=== PATIENT | male | born 1970 | race Caucasian/White ===

== ENCOUNTER 2024-10-01 07:03 | Day surgery (SDC) | payer OTHER, SELFPAY ==
[2024-10-01 07:48] VITALS: BMI 22.8
== END 2024-10-01 12:10 | disposition home or self-care (01) ==
LOC: CATH 07:03
PROVIDERS: ATTENDING PHYSICIAN Internal Medicine; FAMILY PHYSICIAN Internal Medicine; OTHER PHYSICIAN Internal Medicine Cardiovascular Disease
DX: I48.0 Paroxysmal atrial fibrillation (principal); I11.0 Hypertensive heart disease with heart failure; I50.22 Chronic systolic (congestive) heart failure; I42.8 Other cardiomyopathies; G47.33 Obstructive sleep apnea (adult) (pediatric); Z79.01 Long term (current) use of anticoagulants; Z79.84 Long term (current) use of oral hypoglycemic drugs; Z79.82 Long term (current) use of aspirin
CPT/HCPCS: 93312; 93320; 93325

== ENCOUNTER 2024-10-19 05:45 | Inpatient (IN) | payer OTHER, SELFPAY ==
[2024-10-19] VITALS (29 sets, daily range): BP systolic 126–165; BP diastolic 82–132; BMI 23.3
[2024-10-19 02:35] LABS: % Basophils 0.8 % (0-2); % Eosinophils 2.4 % (0-6); % Immature Granulocytes 0.4 % (0-0.5); % Lymphocytes 16.4 % (20.5-51.1); % Monocytes 7.8 % (1.7-9.3); % Neutrophils 72.2 % (42.2-75.2); Absolute Basophils 0.1 10^3/uL (0-0.2); Absolute Eosinophils 0.2 10^3/uL (0-0.7); Absolute Lymphocytes 1.2 10^3/uL (1.2-3.4); Absolute Monocytes 0.6 10^3/uL (0.1-0.6); Absolute Neutrophils 5.5 10^3/uL (1.4-6.5); Hematocrit 44.9 % (39.0-52.0); Hemoglobin 14.9 g/dL (13.0-18.0); Mean Corp Hgb Conc. 33.2 g/dL (33.0-37.0); Mean Corpuscular Hgb 29.7 pg (27.0-31.0); Mean Corpuscular Volume 89.4 fL (80.0-94.0); Mean Platelet Volume 10.9 fL (7.4-10.4); Nucleated Red Blood Cells % 0 % (-); Platelet Count 222 10^3/uL (130-400); Red Blood Cell Count 5.02 10^6/uL (4.70-6.10); Red Cell Dist. Width 13.9 % (11.5-14.5); White Blood Cell Count 7.6 10^3/uL (4.8-10.8)
--- NOTE | 2024-10-19 02:37 | ED.GENMED ---
History of Present Illness
General
Chief Complaint: Heart Rate Problem
Source: patient
Exam Limitations: none
Time Seen by Provider: 10/19/24 02:30
Nursing documentation reviewed up to this point in time: agreed with
History of Present Illness
History of Present Illness:
54-year-old male presents emergency department with palpitations. He has been diagnosed with atrial fibrillation with rapid ventricular response and has been on Eliquis since mid August. In mid September he had a RACIEL and they found many clots.
They put off cardioverting him until the Eliquis had more time to work. Tonight, while at work he had some chest pain and dyspnea on exertion. 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 Upon arrival he was found to be in atrial fibrillation with rapid ventricular response. Patient reports no chest pain at this time.
Past History
Past History
ED Past Medical History: HTN
ED Past Surgical History: None
Social History
Tobacco: Non-smoker
Review of Systems
Review of Systems
Allergies reviewed?: Yes
All Other Systems: ROS reviewed and negative except as documented in HPI and ROS
Constitutional: Reports no symptoms
EENT: Reports no symptoms
Respiratory: Reports no symptoms
Cardiac: Reports palpitations
ABD/GI: Reports no symptoms
: Reports no symptoms
Musculoskeletal: Reports no symptoms
Skin: Reports no symptoms
Neurological: Reports no symptoms
Endocrine: Reports no symptoms
Hematologic/Lymphatic: Reports no symptoms
Psychiatric: Reports anxiety
Phy Exam
General Physical Exam
General Presentation: well appearing and no apparent distress
General Skin: warm and dry
General Habitus: normal
General Mental: alert
General Hydration: appears well hydrated
ENT Exam
ENT Exam: EOMI, pharynx normal, neck supple and normocephalic
Eye Exam
Eye Exam: PERRL, cornea clear and conjunctiva normal
Cardiovascular Exam
Cardiovascular Exam: irregularly irregular and tachycardia
Pulmonary Exam
Pulmonary Exam: lungs clear, no respiratory distress, no rales, no crackles, no rhonchi, no stridor, no wheezing and no cough
Gastrointestinal Exam
Gastrointestinal Exam: normal bowel sounds, non tender, soft, no organomegaly, no pulsatile mass and non distended
Neurological Exam
Neurological Exam: alert, oriented x3, no motor deficits and speech normal
Musculoskeletal Exam
Musculoskeletal Exam: full ROM and no edema
Skin Exam
Skin Exam: normal color, warm/dry, no rash and no petechia
Psychiatric Exam
Psychiatric Exam: normal mood/affect
Course
Orders/Labs/Results
Orders:
Orders
10/19/24 02:11
Electrocardiogram (*1) Urgent
Reason for Study: Atrial Fibrillation
EKG- Treatment ONCE
10/19/24 02:26
Complete Blood Count/With Diff Urgent
Comprehensive Metabolic Panel Urgent
NT-proBNP Urgent
Troponin I Urgent
10/19/24 02:30
Diltiazem 125 mg/125 ml Nss [Cardizem] 125 mg in 125 ml IV PER PROTOCOL
Initial dose in mg/hr, then titrate:: 5
Titrate to keep:: Heart rate 80-100 bpm
Titrate by mg/hr:: 5 mg/hr
Frequency of titrations (minutes):: 15
Maximum dose in mg/hr:: 15
Diltiazem HCl [Cardizem] 25 mg IV NOW STA
Abnormal Lab Results
10/19/24
02:26
MPV 10.9 H fL
(7.4-10.4)
Lymphocytes % 16.4 L %
(20.5-51.1)
BUN 34 H mg/dl
(9-20)
Creatinine 1.8 H mg/dL
(0.7-1.3)
Glucose 131 H mg/dl
(70-99)
Total Bilirubin 1.4 H mg/dl
(0.2-1.3)
AST 77 H U/L
(17-59)
ALT 93 H U/L
(0-50)
Troponin I 0.071 H* ng/ml
Total Protein 5.8 L g/dl
(6.3-8.2)
10/19/24 02:26
10/19/24 02:26
Vital Signs
Initial and Last Documented VS:
Initial Vital Signs
Temp Pulse Resp BP Pulse Ox
98.5 F 121 16 162/121 99
10/19/24 02:18 10/19/24 02:18 10/19/24 02:18 10/19/24 02:18 10/19/24 02:18
Last Documented Vital Signs
Temp Pulse Resp BP Pulse Ox
98.5 F 98 18 165/132 99
10/19/24 02:18 10/19/24 02:41 10/19/24 02:33 10/19/24 02:41 10/19/24 02:33
*Critical Care Note
Total Time (30-74mins, 75-104mins- exclusive of procedures): 30
comment:
Critical care statement: A total of 30 minutes of critical care time was provided for this patient. This time is separate from time utilized to perform the aforementioned documented procedures. Aggregate critical care time includes only time
during which I was engaged in work directly related to the patient's care, as described above, whether at the bedside or elsewhere in the Emergency Department.
ED Attending Note
-
Portions of this chart may have been created with voice recognition software.� Occasional wrong word or��sound alike� substitutions may have occurred due to the inherent limitations of voice recognition software.
Discharge Plan
Departure
Patient Disposition: Admit
Date of Disposition: 10/19/24
Time of Disposition: 03:29
Admit to: Telemetry
Presentation/result/management discussed w/ accepting MD/DO: Hospitalist
Discharge Problem:
Atrial fibrillation with RVR, Chest pain, Elevated troponin
Prescriptions:
No Action
Eliquis 5 mg Tablet
5 mg PO BID Qty: 60 0RF
sacubitril-valsartan [Entresto] 24-26 mg Tablet
1 tab PO BID Qty: 60 0RF
spironolactone 25 mg Tablet
50 mg PO BID Qty: 60 0RF
Jardiance 10 mg Tablet
10 mg PO DAILY Qty: 30 0RF
metoprolol succinate 50 mg Tablet Extended Release 24 Hr
50 mg PO DAILY
hydralazine 25 mg Tablet
25 mg PO BID
aspirin [Aspir-81] 81 mg Tablet,Delayed Release (Dr/Ec)
81 mg PO DAILY
Interventions
Interventions:
*Risk Screen - Suicide Last Done: 10/19/24 02:18
*General Assessment Last Done: 10/19/24 02:18
*Neglect/Abuse Screening Last Done: 10/19/24 02:18
ED- Fall Risk Assessment Last Done: 10/19/24 02:44
*ED COVID-19 Vaccine History Last Done: 10/19/24 02:18
ED- Cardiac Assessment Last Done: 10/19/24 02:44
ED- Pulmonary Assessment Last Done: 10/19/24 02:44
Discharge Date and Time
Print Language: PORTUGUESE
[2024-10-19] MEDS: CARDIZEM 125 IV (02:41)
[2024-10-19] MEDS: CARDIZEM 25 MG IV (02:41)
[2024-10-19 03:00] LABS: ALT (SGPT) 93 U/L (0-50); AST (SGOT) 77 U/L (17-59); Albumin 3.7 g/dl (3.5-5.0); Alkaline Phosphatase 98 U/L (38-126); Blood Urea Nitrogen 34 mg/dl (9-20); Calcium 9.4 mg/dl (8.4-10.2); Carbon Dioxide 27 mmol/L (22-30); Chloride 103 mmol/L (98-107); Glucose 131 mg/dl (70-99); Potassium 4.4 mmol/L (3.5-5.1); Sodium 138 mmol/L (135-145); Total Bilirubin 1.4 mg/dl (0.2-1.3); Total Protein 5.8 g/dl (6.3-8.2); eGFR 43.63
[2024-10-19 03:22] LABS: NT-proBNP 8460 pg/ml; Troponin I 0.071 ng/ml
[2024-10-19] MEDS: NSS 1000 IV (03:30)
--- NOTE | 2024-10-19 03:30 | EDRN ---
patient had a few episodes of being bradycardic as low as 40, patient reports that he does normally run low, spoke with and informed him of the patients rate and what patient reported, patient isn't symptomatic, Dr. Simpson ordered to
give 1,000ml/normal saline and to decrease cardizem to 2.5mg/hr.
--- NOTE | 2024-10-19 05:17 | HPS.HSE ---
Family Physician
-
Family Physician: Reyes Shabazz MD
Chief Complaint
-
Palpitations and shortness of breath
History of Present Illness
This is a 54-year-old who has past medical history that is significant for congestive heart failure with last EF of around 35%, atrial fibrillation on anticoagulation, status post prior DCCV and now back in atrial fibrillation, hypertension, prior
NSTEMI with clean coronaries in spring 2022 who presents to the emergency department with approximately 1 week of worsening cardiac symptoms including orthopnea, palpitations and intermittent chest pain.
Patient reported that since he is attempted cardioversion that was aborted due to presence of layering clots in his heart he has been having worsening cardiac symptoms which included some dyspnea on exertion but mostly achy orthopnea. He feels like
over the last few days he has been having to prop himself up or sleep on his recliner. He reports intermittent swelling of his lower extremities. He reported some episode of chest pain that he states is a dull ache that lasted few minutes and then
resolves. He denies any acute weight gain stating that his weight has stayed around 150 pounds. He reports compliance with medications. Denies any cough fevers or chills. He states that his heart rate has been persistently in the 120s over the
last few days. Recommendation of the symptoms are what brought him to the hospital feeling that his cardiac condition has deteriorated.
On arrival in the emergency department he was afebrile, blood pressure was 136/82 with a ECG showing atrial fibrillation with a rate of 120s. He was satting 97% on room air. BNP was elevated at 8004 and 60, troponin was also elevated at 0.07. CBC
is unremarkable. Electrolytes were all normal, creatinine is slightly elevated to 1.8 from 1.22 years ago.
Medical History
Past Medical History
Past Medical History: Reports Arrhythmia (Atrial fibrillation persistent, failure of DCCV, pending repeat DCCV), CHF (Nonischemic cardiomyopathy secondary to bundle hypertension and uncontrolled atrial fibrillation, EF 30 to 35%), HTN and Other
(Nephrolithiasis)
Past Surgical History: Reports None
Social History
Tobacco: Non-smoker
Alcohol: None
Drug: None
Family History
Family History: Not pertinent
Allergies / Home Medications
Allergies reflects when Allergies were last updated in [facility].
Home Medications with original date entered in [facility]
Allergy/Medication List:
Allergies
Allergy/AdvReac Type Severity Reaction Status Date / Time
No Known Allergies Allergy Verified 03/02/23 01:02
Home Medications
apixaban 5 mg tablet (Eliquis) 5 mg PO BID #60 tabs 03/05/23
empagliflozin 10 mg tablet (Jardiance) 10 mg PO DAILY #30 tabs 03/05/23
sacubitril 24 mg-valsartan 26 mg tablet (Entresto) 1 tab PO BID #60 tabs 03/05/23
spironolactone 25 mg tablet 50 mg (2 x 25 mg) PO BID #60 tabs 03/05/23
aspirin 81 mg tablet,delayed release 81 mg PO DAILY 10/01/24
hydralazine 25 mg tablet 25 mg PO BID 10/01/24
metoprolol succinate 50 mg tablet,extended release 24 hr 50 mg PO DAILY 10/01/24
Review of Systems
-
History Source: Patient
Constitutional: Reports No Symptoms
EENT: Reports No Symptoms
Respiratory: Reports Trouble Breathing
Cardiac: Reports Chest Pain and Palpitations
Abdomen/GI: Reports No Symptoms
: Reports No Symptoms
Musculoskeletal: Reports No Symptoms
Skin: Reports No Symptoms
Neurological: Reports No Symptoms
Endocrine: Reports No Symptoms
Hematologic/Lymphatic: Reports No Symptoms
Psych: Reports No Symptoms
Physical Exam
Vital Signs
Vital Signs
Temp Pulse Resp BP Pulse Ox
98.5 F 68 17 126/82 97
10/19/24 02:18 10/19/24 04:15 10/19/24 04:15 10/19/24 04:00 10/19/24 04:15
Physical Exam
General: Well Developed, Well Nourished and No Apparent Distress
HEENT: NormoCephalic, Anicteric, Moist mucous membranes, Atraumatic and PERRLA
Respiratory: Clear
Cardiac: S1/S2 and Irregular Rhythm; No Peripheral Edema
Breast: Deferred by me
GI: Soft, Non Tender, Non Distended and Normal Bowel Sounds
Rectal: Deferred by Provider
Genito-urinary: Deferred by me
Musculoskeletal: No Clubbing, No Cyanosis and No Edema
Skin: Warm
Neuro: AO x 3 and Nonfocal/grossly intact
Hematologic/Lymphatic: No Lymphadenopathy
Psych: Calm
Laboratory Results
-
10/19/24 02:26
10/19/24 02:26
Laboratory Results
Total Bilirubin 1.4 mg/dl (0.2-1.3) H 10/19/24 02:26
AST 77 U/L (17-59) H 10/19/24 02:26
ALT 93 U/L (0-50) H 10/19/24 02:26
Alkaline Phosphatase 98 U/L (38-126) 10/19/24 02:26
Troponin I 0.071 ng/ml H* 10/19/24 02:26
Data Reviewed
-
Medical Tests (Nuc Med, Echo, EKG etc): Image Personally Visualized and interpreted
Lab Data: Labs Reviewed by me
Old Records: Reviewed
Impression/Plan
-
IMPRESSION:
54-year-old with history of nonischemic cardiomyopathy, hypertension, uncontrolled atrial fibrillation presenting to the emergency department with palpitations, rapid atrial fibrillation, orthopnea, dyspnea on exertion. Found to have intermittent
chest pain with troponin of 0.07. Overall exam is negative for total body volume overload. He is not requiring oxygen. However his symptoms are consistent with CHF exacerbation, BNP is elevated at 8460. He was in uncontrolled atrial fibrillation.
PLAN:
1. Uncontrolled AFIB - Suspect given reduced EF patient uncontrolled afib highly symptomatic. Unlikely he has obstructive ACS. Clear coronories on [facility] 2022.
- admit to ivu
- continue dilitazem for now
- trend troponins
- continue metoprolol succinate
- continue ac with apixaban for now
- npo at breakfast
- cardiology consult.
2. CHF - Appears to have symptomatic disease but mostly feels orthopnea. No edema on exam for me but patient reports intermittent edema at home. HD stable. No hypoxia
- check chest xray
- no lasix for now
- recent echo w/ EF 30-35% will hold off on repeat TTE
- continue entrsto and empagliflozin
- spironolactone
3. Elevated troponin - suspect 2/2 rate related demand and NICM
- trend as above
- continue eliquis for now, pt inr in am
DVT PPX - on eliquis
Code status - Full Code
--- NOTE | 2024-10-19 05:17 | EDRN ---
Hospitalist at bedside seeing patient, patient also placed in a recliner chair for comfort at this time, lokesh villalpando in reach, will continue to monitor
--- NOTE | 2024-10-19 06:55 | EDRN ---
this RN received the pt from previous movie operator RN, the pt is laying in recliner, per the pt he does not like to sleep in stretcher and does not like to lie flat due to being short of breath, this RN offered to sit the head of the stretcher up so
the pt did not have to lay flat and the pt stated that he preferred to lay in the recliner, VS WNL, cardizem gtt has been off per previous nurse, HR in the 60-70's in Afib, RA Sp02 98%, no c/o chest pain, no c/o SOB, this RN completed the pts
medication reconciliation and provider notified, awaiting for a bed in IVU, will continue to monitor the pt closely
--- NOTE | 2024-10-19 07:17 | EDRN ---
Troponin drawn and sent
[2024-10-19 07:55] LABS: Troponin I 0.065 ng/ml
--- NOTE | 2024-10-19 07:55 | EDRN ---
troponin trending down
--- NOTE | 2024-10-19 07:55 | EDRN ---
the pt is off of cardizem gtt since 415, this RN reviewed admission orders and saw that there was an order to continue cardizem infusion per attending however the pts HR is 60-70's, this RN reached out to Dr. Wagner who is the current
attending to confirm that it is ok to keep cardizem gtt off
--- NOTE | 2024-10-19 08:01 | EDRN ---
per Dr. Wagner the [facility] gtt is to stay off for now due to the pts HR being in the 60-70's
--- NOTE | 2024-10-19 08:18 | EDRN ---
this RN attempted to call verbal report to the receiving IVU nurse, the nurse was not available, this RN tubed up paper report per the charge nurse
--- NOTE | 2024-10-19 08:24 | EDRN ---
the receiving IVU nurse Sarah RN called this RN and this RN gave verbal report
[2024-10-19] MEDS: ELIQUIS 5 MG PO ×2 (09:46→19:34)
[2024-10-19] MEDS: ENTRESTO 49 MG/51 MG 1 TAB PO (09:46)
[2024-10-19] MEDS: TOPROL XL 50 MG PO (09:46)
[2024-10-19 10:45] LABS: Troponin I 0.065 ng/ml
[2024-10-19] MEDS: ALDACTONE 25 MG PO (11:09)
[2024-10-19] MEDS: FARXIGA 10 MG PO (11:10)
--- NOTE | 2024-10-19 11:23 | PTCARENOTE ---
10/19/24 0900 Received patient from ER via stretcher. Pt ambulated to bed without any issues. Pt oriented to room,call villalpando , and surroundings. Pt placed on awake overnight monitor- Controlled A Fib, afebrile, on room air at 96%. SBP 140-150/104-110.
Attending and cardiology aware. Pt with no complaints. Pt NPO until seen by cardiology.
--- NOTE | 2024-10-19 13:22 | CON.CAR ---
Consultation
Consultation Request
Date/Time Consultation Requested: 10/19/2024 at 8:57 AM
Date/Time Consultation Performed: 10/19/2024 at 1:22 PM
Requesting Provider: Korina Clemens MD
Performing Provider: Leonel Stevens MD
Reason for Consultation: afib, CHF
Medical History
-
Chief Complaint: fatigue, SOB
History of Present Illness:
Jose Angel Harmon is a 54-year-old male (patient of Dr. Will) with nonischemic cardiomyopathy (EF 30%), paroxysmal atrial fibrillation (s/p ablation 2021), hypertension who presents with fatigue and shortness of breath. He had an episode of atrial
fibrillation in 2022 but then had been in sinus rhythm for 2 years. In August of this year, he noted that he was in recurrent atrial fibrillation. He was told to restart Eliquis at that time and was planned for RACIEL/cardioversion in September. On
10/01/2024, he presented to for planned RACIEL/cardioversion but was found to have a left atrial appendage thrombus so cardioversion was not performed. Since then he has been feeling sluggish and fatigued. For the past 1 week he has noted orthopnea
and leg swelling. Yesterday he noticed that his heart rates were elevated so he decided to present to the ED. In the ER he was noted to be in A-fib with RVR and was started on a diltiazem drip which has since been stopped. Heart rates are now
controlled in the 50s�60s.
Past Medical History
Past Medical History: Other (As above)
Social History
Tobacco: Non-Smoker
Family History
Family History: Reviewed & Not Pertinent
Allergies / Home Medications
Allergy/AdvReac Type Severity Reaction Status Date / Time
No Known Allergies Allergy Verified 03/02/23 01:02
�Medication �Instructions �Recorded �Confirmed �Type
apixaban 5 mg tablet (Eliquis) 5 mg PO BID #60 tabs 03/05/23 10/19/24 Rx
empagliflozin 10 mg tablet 10 mg PO DAILY #30 tabs 03/05/23 10/19/24 Rx
(Jardiance)
sacubitril 24 mg-valsartan 26 mg 1 tab PO BID #60 tabs 03/05/23 10/19/24 Rx
tablet (Entresto)
spironolactone 25 mg tablet 50 mg (2 x 25 mg) PO BID #60 tabs 03/05/23 10/19/24 Rx
aspirin 81 mg tablet,delayed 81 mg PO DAILY 10/01/24 10/19/24 History
release
metoprolol succinate 50 mg 50 mg PO DAILY 10/01/24 10/19/24 History
tablet,extended release 24 hr
Review of Systems
-
All other systems: Negative unless noted
Physical Exam
Vital Signs
Temp Pulse Resp BP Pulse Ox
97.8 F 71 20 151/98 99
10/19/24 11:18 10/19/24 11:30 10/19/24 11:18 10/19/24 11:21 10/19/24 11:19
Lab Results
10/19/24 02:26
10/19/24 02:26
Troponin I 0.065 ng/ml H* 10/19/24 10:12
Stj-O-Xymboxyndlt Pept 8460 pg/ml 10/19/24 02:26
Physical Exam
General: Well Developed and Well Nourished
HEENT: Normocephalic and Anicteric
Respiratory: Clear and Non Labored Respirations
Cardiac: Irregular Rhythm; Negative Murmur or Peripheral Edema
Neuro: AO x 3
Impression / Plan
-
Jose Angel Harmon is a 54-year-old male (patient of Dr. Will) with nonischemic cardiomyopathy (EF 30%), paroxysmal atrial fibrillation (s/p ablation 2021), hypertension who presents with fatigue and shortness of breath, found to have A-fib with RVR
and mild CHF exacerbation.
Paroxysmal atrial fibrillation
-He was in RVR on presentation, but rates are now controlled. S/p diltiazem drip.
-Unfortunately he had a TADEO thrombus on RACIEL on 10/01/2024, so cardioversion is not an option.
-We will plan to rate control with metoprolol succinate 50 mg daily and uptitrate as needed for goal HR <110
-No further diltiazem given his cardiomyopathy with severely reduced ejection fraction
-Continue apixaban 5 mg twice daily
-We will see if he feels better with rate control and some diuresis. If not can reassess for thrombus with RACIEL on Sunday and cardiovert if it has resolved.
Nonischemic cardiomyopathy
-Elevated proBNP on admission with mild lower extremity edema
-RACIEL 10/01/2024: LVEF 30-35%, global HK
-Continue home GDMT: Metoprolol succinate 50 mg daily, SGLT2 inhibitor, medium dose Entresto, spironolactone 25 mg daily
-Diuresis with 40 mg IV Lasix daily
Troponin elevation due to nonischemic myocardial injury
-Peaked at 0.071 and downtrended. No chest pain, no ischemic ECG changes.
-Suspect due to A-fib with RVR and CHF exacerbation
-Okay to stop trending
MAGO on CKD
-Unknown baseline. Last documented was 1.2 in February 2023
-Trend with diuresis as above
Data Reviewed
-
EKG: Tracing Personally Visualized and interpreted, Discussed with Physician and Discussed with Patient
Medical Tests (Nuc Med, Echo etc): Report Reviewed by me, Discussed with Physician and Discussed with Patient
Labs: Labs Reviewed by me, Discussed with Physician and Discussed with Patient
Old Records: Reviewed
[2024-10-19] MEDS: LASIX 40 MG IV (14:59)
--- NOTE | 2024-10-19 16:58 | W.PN.HOSP.TC ---
Today's Communication/Plan
-
Assessment / Plan
Assessment / Plan
Gen-AAOx3, NAD
HEENT-NC, AT, anicteric, clear oral mm
Neck-supple
CV-reg, no M, +S1/S2
Lungs-clear B/L
Abd-soft, NT, ND
Musculoskeletal-no edema, no deformity
Skin-warm and dry
Neuro-grossly non-focal
Psych-calm, cooperative
Ms. Harmon is a 54-year-old male with a longstanding history of HFrEF (around 35%, nonischemic) and A-fib (status post DCCV, now back in A-fib) who presented with progressively worsening palpitations and orthopnea over the past week prior to
arrival. He recently underwent RACIEL with planned cardioversion in 10/01/2024, however cardioversion was aborted due to finding of thrombus in left atrial appendage. He has been adherent with his Eliquis. In the ED the time of this presentation he
was normotensive but tachycardic with a heart rate in the 120s. He had an elevated BNP of around 8000 and a mildly elevated troponin. He was started on diltiazem drip and admitted for further evaluation and management of A-fib with RVR.
A-fib with RVR:
-Diltiazem drip has been discontinued
-Continue rate control with metoprolol succinate 50 mg daily, uptitrate as needed
-No further diltiazem considering HFrEF
-Continue anticoagulation with Eliquis
-Cardiology following, planning reassessment of TADEO thrombus with RACIEL on Sunday and cardioversion if resolved
-Suspected bone elevation due to uncontrolled heart rate, do not suspect ACS
Abnormal LFTs:
-Mixed hepatocellular cholestatic pattern, mild
-Likely due to decreased perfusion in the setting of rapid heart rate
-Repeat LFTs with a.m. labs, if persistently abnormal can pursue dedicated liver imaging
Chronic HFrEF:
-Currently compensated
-Continue beta-blockade with metoprolol succinate 50 mg p.o. daily
-Afterload reduction with Entresto
-Continue empagliflozin and spironolactone
Abnormal renal function:
-Creatinine 1.8 on initial labs, unclear recent baseline
-Continue to monitor and renally dose all medications
CODE STATUS: Full code
Anticipated Discharge: > 48 hours
Subjective/Interval History
-
Date of Service: October 19, 2024
Patient was seen and examined at bedside's morning. He was able to be titrated off of his diltiazem drip. Currently feels comfortable with controlled heart rate.
Objective Data
-
Vital Signs:
Vital Signs
Temp Pulse Resp BP Pulse Ox
98 F 73 20 143/102 97
10/19/24 14:31 10/19/24 16:45 10/19/24 14:31 10/19/24 14:59 10/19/24 14:31
I&O
10/18/24 10/19/24 10/20/24
06:59 06:59 06:59
Intake Total 240 / 240
Output Total 500 / 500 450 / 450
Balance -500 / -500 -210 / -210
Review of Systems
-
History Source: Patient
All other systems: Reviewed and negative
Physical Exam
-
General: No Apparent Distress
[2024-10-19] MEDS: ENTRESTO 97 MG/103 MG 1 TAB PO (19:34)
--- NOTE | 2024-10-19 22:41 | PTCARENOTE ---
pt received at change of shift, pt seen and assessed in room. AOx3, tele reading afib in the 80s. no complaints of pain at this time, feeling SOB and GRAF. satting 99% RA. continuing to monitor BP, DBP elevated in the 110s. this RN discussed POC, pt
verbalizes understanding. call villalpando within reach. continuing to monitor at this time.
[2024-10-20] VITALS (13 sets, daily range): BP systolic 133–164; BP diastolic 100–135; BMI 23.2
[2024-10-20 03:10] LABS: Hematocrit 43.6 % (39.0-52.0); Hemoglobin 14.2 g/dL (13.0-18.0); Mean Corp Hgb Conc. 32.6 g/dL (33.0-37.0); Mean Corpuscular Hgb 29.4 pg (27.0-31.0); Mean Corpuscular Volume 90.3 fL (80.0-94.0); Mean Platelet Volume 11.5 fL (7.4-10.4); Platelet Count 207 10^3/uL (130-400); Red Blood Cell Count 4.83 10^6/uL (4.70-6.10); Red Cell Dist. Width 13.7 % (11.5-14.5)
[2024-10-20 03:35] LABS: ALT (SGPT) 63 U/L (0-50); AST (SGOT) 34 U/L (17-59); Alkaline Phosphatase 74 U/L (38-126); Blood Urea Nitrogen 32 mg/dl (9-20); Calcium 8.4 mg/dl (8.4-10.2); Carbon Dioxide 23 mmol/L (22-30); Chloride 105 mmol/L (98-107); Direct Bilirubin 0.2 mg/dl (0.0-0.4); Estimated Creatinine Clearance 61 ml/min; Glucose 90 mg/dl (70-99); Potassium 3.9 mmol/L (3.5-5.1); Sodium 135 mmol/L (135-145); Total Bilirubin 1.1 mg/dl (0.2-1.3); Total Protein 5.2 g/dl (6.3-8.2); eGFR > 60.00
[2024-10-20] MEDS: ELIQUIS 5 MG PO ×2 (09:01→19:36)
[2024-10-20] MEDS: FARXIGA 10 MG PO (09:02)
[2024-10-20] MEDS: TOPROL XL 50 MG PO (09:02)
[2024-10-20] MEDS: ENTRESTO 97 MG/103 MG 1 TAB PO ×2 (09:02→19:36)
[2024-10-20] MEDS: ALDACTONE 25 MG PO (09:02)
[2024-10-20] MEDS: LASIX 40 MG IV (09:02)
--- NOTE | 2024-10-20 10:03 | W.PN.CD ---
Today's Communication / Plan
-
- NPO after midnight for RACIEL/DCCV in AM
- TTE today
- Continue Metoprolol and Eliquis.
Impression / Plan
-
Jose Angel Harmon is a 54-year-old male (patient of Dr. Will) with nonischemic cardiomyopathy (EF 30%), paroxysmal atrial fibrillation (s/p ablation 2021), hypertension who presents with fatigue and shortness of breath, found to have A-fib with RVR
and mild CHF exacerbation.
Paroxysmal atrial fibrillation
-h/o persistent AF s/p AF ablation 07/2022. Ablation included PVI and PWI. Severely dilated LA 9 cm at the time of ablation.
-Recurrence of AF in Aug 2022. He was off the anticoagulation and Eliquis restarted and presented for RACIEL/DCCV
-Unfortunately he had a TADEO thrombus on RACIEL on 10/01/2024, -only couple of weeks of Eliquis by then.
-Presented in RVR , but rates are now controlled. S/p diltiazem drip.
-Plan for RACIEL in AM. If no clot then DCCV.
-Will see EP as outpatient for repeat ablation eval
-We will plan to rate control with metoprolol succinate 50 mg daily and uptitrate as needed for goal HR <110
-No further diltiazem given his cardiomyopathy with severely reduced ejection fraction
-Continue apixaban 5 mg twice daily
-We will see if he feels better with rate control and some diuresis. If not can reassess for thrombus with RACIEL on Sunday and cardiovert if it has resolved.
Nonischemic cardiomyopathy
-Elevated proBNP on admission with mild lower extremity edema
-RACIEL 10/01/2024: LVEF 30%, global HK (was 55% in sinus rhythm in 2022)
-TTE today.
-Continue home GDMT: Metoprolol succinate 50 mg daily, SGLT2 inhibitor, medium dose Entresto, spironolactone 25 mg daily
-Diuresis with 40 mg IV Lasix daily
Troponin elevation due to nonischemic myocardial injury
-Peaked at 0.071 and downtrended. No chest pain, no ischemic ECG changes.
-Suspect due to A-fib with RVR and CHF exacerbation
-Okay to stop trending
MAGO on CKD
-due to AF - Cr is better with rate controlled AF - from 1.8 to 1.3.
-Last documented was 1.2 in February 2023
-Trend with diuresis as above
Physical Exam
Vital Signs/Labs
Vital Signs
Temp Pulse Resp BP Pulse Ox
97.4 F 101 18 154/107 99
10/20/24 06:55 10/20/24 09:15 10/20/24 06:55 10/20/24 09:02 10/20/24 06:55
10/19/24 10/20/24 10/21/24
06:59 06:59 06:59
Actual Weight 74 kg 69.3 kg
10/20/24 02:11
10/20/24 02:11
10/19/24
02:26
Yxd-[id number]-Ndnthjmvvys Pept 8460
LAB Results
10/19/24 10/19/24 10/19/24
02:26 07:17 10:12
Troponin I 0.071 H* 0.065 H* 0.065 H*
Physical Exam
Constitutional: No acute distress and Comfortable
EENT: Anicteric and Moist mucous membranes
Cardiovascular: Rhythm/rate is irregular, JVD present and Systolic murmur present
Respiratory: Respiratory effort normal, Wheeze Absent and Crackles Absent
GI: Soft, Distention absent, Non tender and Normal bowel sounds
Neuro/Psych: Alert, Oriented, AO x 3 and Motor deficits absent
Other: Cath Site
Data Reviewed
-
Date of Service: October 20, 2024
Medical Decision Making: Reviewed Test Results, Test Interpretation and Review of Case with other Provider
Labs: Labs Reviewed by me
Old Records: Reviewed
--- NOTE | 2024-10-20 10:17 | CM ---
Reviewed chart. Met with Mr. Harmon to review discharge plans. He states prior to admission he resides alone in a second floor condo with a full flight of steps to get to the condo. He states prior to admission he was independent with ambulation
and adls. He states he does not have any DME in the home. He states he has a prescription plan and uses [facility]. Medical work-up in progress. The discharge plan is to return home when medically stable.
--- NOTE | 2024-10-20 10:42 | PTCARENOTE ---
Rec'd pt at handoff. AOX3 and pleasant. Tele- Afib. Assessment completed as documented. Plan of care reviewed w/ pt. Verbalizes understanding. Pt reports breathing feels slightly better today. Call villalpando is w/in reach.
--- NOTE | 2024-10-20 17:46 | W.PN.HOSP.TC ---
Today's Communication/Plan
-
maintain on diuretics
for CV/RACIEL tomorrow
Assessment / Plan
Assessment / Plan
Ms. Harmon is a 54-year-old male with a longstanding history of HFrEF (around 35%, nonischemic) and A-fib (status post DCCV, now back in A-fib) who presented with progressively worsening palpitations and orthopnea over the past week prior to
arrival. He recently underwent RACIEL with planned cardioversion in 10/01/2024, however cardioversion was aborted due to finding of thrombus in left atrial appendage. He has been adherent with his Eliquis. In the ED the time of this presentation he
was normotensive but tachycardic with a heart rate in the 120s. He had an elevated BNP of around 8000 and a mildly elevated troponin. He was started on diltiazem drip and admitted for further evaluation and management of A-fib with RVR.
A-fib with RVR:
-Diltiazem drip has been discontinued
-Continue rate control with metoprolol succinate 50 mg daily, uptitrate as needed
-Continue anticoagulation with Eliquis
-Cardiology following, planning reassessment of TADEO thrombus with RACIEL on Sunday and cardioversion if resolved
-Suspected bone elevation due to uncontrolled heart rate, do not suspect ACS
Acute transaminitis - improved
-Mixed hepatocellular cholestatic pattern, mild
-Likely due to decreased perfusion in the setting of rapid heart rate
Acute on Chronic HFrEF:
-Currently compensated
-Continue beta-blockade with metoprolol succinate 50 mg p.o. daily
-Afterload reduction with Entresto
-Continue empagliflozin and spironolactone
-Maintain on IV lasix 40mg/d, f/u weight/cr
MAGO
-cr normalized to 1.2, close to baseline
CODE STATUS: Full code
Anticipated Discharge: 24 - 48 hours
Subjective/Interval History
-
Date of Service: October 20, 2024
Resting comfortably in bed
Dyspnea is better
Not on oxygen
Orthopnea persists
Objective Data
-
Vital Signs:
Vital Signs
Temp Pulse Resp BP Pulse Ox
98.3 F 113 18 133/109 98
10/20/24 15:48 10/20/24 16:00 10/20/24 15:48 10/20/24 15:20 10/20/24 15:48
I&O
10/19/24 10/20/24 10/21/24
06:59 06:59 06:59
Intake Total 558 / 558 400 / 400
Output Total 500 / 500 2450 / 2450 1850 / 1850
Balance -500 / -500 -1892 / -1892 -1450 / -1450
Review of Systems
-
Respiratory: Reports No Symptoms
Cardiac: Reports No Symptoms
Abdomen/GI: Reports No Symptoms
Physical Exam
-
General: No Apparent Distress and Comfortable
HEENT: Negative Oxygen
Respiratory: Clear to Auscultation
Cardiac: S1/S2 and Irregular Rhythm; Negative Murmur or Rub
GI: Soft, Nontender and Nondistended
Musculoskeletal: No Edema
Neuro: Awake, Alert, Oriented, No Motor Deficits and Nonfocal/Grossly Intact
Psych: Calm
--- NOTE | 2024-10-20 20:10 | PTCARENOTE ---
pt received at change of shift. pt seen and assessed in room. OOB to chair, chatting comfortably with friend at bedside. no signs of SOB with talking. AOx3, tele reading AFib 120s, DBP still elevated in the 120s. no complaints of pain at this time,
this RN discussed POC for patient, regarding NPO after midnight for planned RACIEL 3/4. pt verbalizes understanding. call villalpando within reach. continuing to monitor at this time.
[2024-10-20] MEDS: MELATONIN 5 MG PO (22:39)
--- NOTE | 2024-10-20 23:17 | PTCARENOTE ---
BP consistently 150s-160s/110s-130s. pt complaining of intermittent SOB/GRAF, satting 99% RA. no dizziness, headache, or blurry vision. tele continuing to read Afib 80s-140s. manual BP taken 164/100. reached out to house PATIENT SERVICES TECHNICIAN [employer]. okay to continue
to monitor at this time.
[2024-10-21] VITALS (18 sets, daily range): BP systolic 140–158; BP diastolic 96–119; BMI 22.7
[2024-10-21 03:42] LABS: Hematocrit 44.3 % (39.0-52.0); Hemoglobin 14.8 g/dL (13.0-18.0); Mean Corp Hgb Conc. 33.4 g/dL (33.0-37.0); Mean Corpuscular Hgb 29.8 pg (27.0-31.0); Mean Corpuscular Volume 89.1 fL (80.0-94.0); Mean Platelet Volume 10.7 fL (7.4-10.4); Platelet Count 209 10^3/uL (130-400); Red Blood Cell Count 4.97 10^6/uL (4.70-6.10); Red Cell Dist. Width 13.8 % (11.5-14.5); White Blood Cell Count 6.5 10^3/uL (4.8-10.8)
[2024-10-21 04:03] LABS: Blood Urea Nitrogen 32 mg/dl (9-20); Calcium 8.6 mg/dl (8.4-10.2); Carbon Dioxide 27 mmol/L (22-30); Chloride 103 mmol/L (98-107); Estimated Creatinine Clearance 79 ml/min; Glucose 87 mg/dl (70-99); Potassium 3.5 mmol/L (3.5-5.1); Sodium 136 mmol/L (135-145); eGFR > 60.00
[2024-10-21] MEDS: TOPROL XL 50 MG PO (07:45)
[2024-10-21] MEDS: LASIX 40 MG IV (07:45)
[2024-10-21] MEDS: ENTRESTO 97 MG/103 MG 1 TAB PO ×2 (07:45→19:34)
[2024-10-21] MEDS: FARXIGA 10 MG PO (07:45)
[2024-10-21] MEDS: ALDACTONE 25 MG PO (07:45)
[2024-10-21] MEDS: ELIQUIS 5 MG PO ×2 (07:45→19:34)
--- NOTE | 2024-10-21 10:32 | CM ---
Reviewed chart. Met with Mr. Harmon to review discharge plans. He states he is waiting for his procedure today. Prior to admission he resides alone in a second floor walk-up condo. He has a full flight of steps to get into his condo. Prior to
admission he was independent with ambulation and adls. He does not have any DME in the home. He has a prescription plan and uses [facility]. Medical work-up in progress. The discharge plan is to return home when medically stable.
--- NOTE | 2024-10-21 12:00 | W.PN.UPDATE ---
Update Note
Progress Note Update
Patient underwent successful RACIEL cardioversion 11/11
Continue anticoagulation with Eliquis
--- NOTE | 2024-10-21 12:51 | PN.CDI ---
CDI
- -
CDI:
Physician Documentation Request
Admit Date: 10/19/24 05:45
Dear Doctor Dillon,
Clinical Indicators:
Patient admitted with A Fib with RVR.
PMH includes HTN
Blood pressure trend:
10/19/24
02:18 10/19/24
08:00 10/19/24
10:35
Blood pressure 162/121 153/112 152/111
10/19/24
19:31 10/19/24
22:09 10/20/24
06:56
Blood pressure 140/114 141/110 143/111
Please clarify which, if any of the following, is a more accurate diagnosis reflecting the type and acuity of the documented hypertension:
Essential primary hypertension
Hypertensive Urgency - B/P is severely elevated (systolic > or = to 180 or diastolic > or = to 110) but there is no associated organ damage. Symptoms may include: headache, shortness of breath, nosebleeds, severe anxiety. Treatment usually consists
of addition to or adjusting of oral medications and does not generally necessitate hospitalization.
Other (please specify)
Use of terms such as suspected, likely, concern for, or probable (associated with a specific diagnosis that is being evaluated, monitored, or treated as if it exists) are acceptable and can be coded in the inpatient setting, when documented at the
time of discharge.
Thank you,
Anne Marie Lovett RN BSN
CDI Specialist
available via tiger text
Please use your independent medical judgment in providing your response.
--- NOTE | 2024-10-21 13:46 | W.PN.HOSP.TC ---
Today's Communication/Plan
-
monitor on tele
diuretics per cards
Assessment / Plan
Assessment / Plan
RACIEL 3/4
Global hypokinesis with moderate to severely reduced left ventricular function
estimated ejection fraction 30 to 35%.
Mild aortic regurgitation
Mild mitral regurgitation
No evidence of thrombus in the left atrial appendage
Dilated ascending aorta 4.0 cm

A-fib with RVR:
-Diltiazem drip has been discontinued
-Continue rate control with metoprolol succinate 50 mg daily, uptitrate as needed
-Continue anticoagulation with Eliquis
-converted in NSR post CV
Acute transaminitis - improved
-Mixed hepatocellular cholestatic pattern, mild
-Likely due to decreased perfusion in the setting of rapid heart rate
Acute on Chronic HFrEF:
-Currently compensated
-Continue beta-blockade with metoprolol succinate 50 mg p.o. daily
-Afterload reduction with Entresto
-Continue empagliflozin and spironolactone
-Maintain on IV lasix 40mg/d, f/u weight/cr
MAGO
-cr normalized to 1.2, close to baseline
CODE STATUS: Full code
Anticipated Discharge: 24 - 48 hours
Subjective/Interval History
-
Date of Service: October 21, 2024
resting comfortably in bed
not hypoxic
orthopnea better
dyspnea better
Objective Data
-
Labs:
Laboratory Results
10/21/24
03:27
WBC 6.5
Hgb 14.8
Hct 44.3
Plt Count 209
Sodium 136
Potassium 3.5
Chloride 103
Carbon Dioxide 27
BUN 32 H
Creatinine 1.0
Glucose 87
Calcium 8.6
Vital Signs:
Vital Signs
Temp Pulse Resp BP Pulse Ox
97.6 F 117 20 158/118 97
10/21/24 12:33 10/21/24 11:00 10/21/24 12:33 10/21/24 07:34 10/21/24 12:33
I&O
10/20/24 10/21/24 10/22/24
06:59 06:59 06:59
Intake Total 558 / 558 600 / 600
Output Total 2450 / 2450 2875 / 2875 2600 / 2600
Balance -1892 / -1892 -2275 / -2275 -2600 / -2600
Review of Systems
-
Respiratory: Reports No Symptoms
Cardiac: Reports No Symptoms
Abdomen/GI: Reports No Symptoms
Physical Exam
-
General: No Apparent Distress and Comfortable
HEENT: Negative Oxygen
Respiratory: Clear to Auscultation
Cardiac: Regular Rhythm and S1/S2; Negative Murmur or Rub
GI: Soft, Nontender and Nondistended
Musculoskeletal: No Edema
Neuro: Awake, Alert, Oriented, No Motor Deficits and Nonfocal/Grossly Intact
Psych: Calm
--- NOTE | 2024-10-21 15:12 | PTCARENOTE ---
Rec'd pt post CV. Tele reads SB w/ 1st deg. Pt has no complaints at this time. Plan of care reviewed w/ pt. Verbalizes understanding. Call villalpando is w/in reach.
[2024-10-21] MEDS: APRESOLINE 10 MG PO ×2 (16:14→22:20)
--- NOTE | 2024-10-21 20:35 | PTCARENOTE ---
pt received at change of shift, pt seen and assessed in room. AOx3, no complaints of pain. tele reading NSR 50s-60s. this rn dicsussed POC with patient, pt verbalizes understanding. call villalpando within reach. continuing to monitor at this time.
[2024-10-22 02:15] VITALS: BP 149/103
[2024-10-22 02:21] VITALS: BMI 22.5
[2024-10-22 02:57] LABS: Hematocrit 45.2 % (39.0-52.0); Mean Corp Hgb Conc. 33.2 g/dL (33.0-37.0); Mean Corpuscular Hgb 29.5 pg (27.0-31.0); Mean Platelet Volume 11.1 fL (7.4-10.4); Platelet Count 223 10^3/uL (130-400); Red Blood Cell Count 5.08 10^6/uL (4.70-6.10); Red Cell Dist. Width 13.8 % (11.5-14.5); White Blood Cell Count 7.6 10^3/uL (4.8-10.8)
[2024-10-22 03:43] LABS: Blood Urea Nitrogen 30 mg/dl (9-20); Calcium 8.5 mg/dl (8.4-10.2); Carbon Dioxide 29 mmol/L (22-30); Chloride 102 mmol/L (98-107); Estimated Creatinine Clearance 65 ml/min; Glucose 87 mg/dl (70-99); Potassium 3.7 mmol/L (3.5-5.1); Sodium 137 mmol/L (135-145); eGFR > 60.00
[2024-10-22 06:45] VITALS: BP 152/97
--- NOTE | 2024-10-22 07:46 | W.PN.CD ---
Today's Communication / Plan
-
- staying in sinus now
- Discontinue hydralazine and Metoprolol and start Coreg 12.5 mg BID
- Home regimen: Coreg 12.5 mg BID, Entresto 97/103 mg BID, Aldactone 25 mg QD, Jardiance (or Farxiga) 10 mg QD, Eliquis 5 mg BID and LAsix 40 mg QD prn.
- Stable for discharge from cardiac stand point.
Impression / Plan
-
Jose Angel Haromn is a 54-year-old male (patient of Dr. Will) with nonischemic cardiomyopathy (EF 30%), paroxysmal atrial fibrillation (s/p ablation 2021), hypertension who presents with fatigue and shortness of breath, found to have A-fib with RVR
and mild CHF exacerbation.
Paroxysmal atrial fibrillation
-h/o persistent AF s/p AF ablation 07/2022. Ablation included PVI and PWI. Severely dilated LA 9 cm at the time of ablation.
-Recurrence of AF in Aug 2022. He was off the anticoagulation and Eliquis restarted and presented for TONI/DCCV
-TONI on 10/01/2024: Smoke and suspected TADEO thrombus -only couple of weeks of Eliquis by then.
-Toni 10/21/24: TADEO clear and successful DCCV
-Continue apixaban 5 mg twice daily
.
Nonischemic cardiomyopathy
-Elevated proBNP on admission with mild lower extremity edema
-TONI 10/01/2024: LVEF 30%, global HK (was 55% in sinus rhythm in 2022)
-TONI 10/21/24: LVEF 30%; Global HK. TADEO is clear now.
-Home GDMT: Metoprolol succinate 50 mg daily, SGLT2 inhibitor Jardiance 10 mg QD, medium dose Entresto, spironolactone 25 mg daily
- High BP, cold not tolerate Hydralazine (Skin itching); will switch Metoprolol 50 mg QD to Coreg 12.5 mg BID. Increase as needed
-s/p Diuresis with 40 mg IV Lasix daily - discharge at lasix 40 mg QD prn
- Treatment of hypertension
Troponin elevation due to nonischemic myocardial injury
-Peaked at 0.071 and downtrended. No chest pain, no ischemic ECG changes.
-Suspect due to A-fib with RVR and CHF exacerbation
Hypertension. Patient hypertensive despite medical therapy including Entresto metoprolol and spironolactone. Can consider addition of hydralazine for additional blood pressure control. Unclear if patient's also had any additional evaluation for
secondary causes
MAGO on CKD
-due to AF - Cr is better with rate controlled AF - from 1.8 to 1.3.
-Last documented was 1.2 in February 2023
-Trend with diuresis as above
Physical Exam
Vital Signs/Labs
Vital Signs
Temp Pulse Resp BP Pulse Ox
98.0 F 58 16 149/103 99
10/22/24 06:43 10/22/24 06:43 10/22/24 06:43 10/22/24 02:15 10/22/24 06:43
10/21/24 10/22/24 10/23/24
06:59 06:59 06:59
Actual Weight 67.7 kg 67 kg
10/22/24 02:30
10/22/24 02:30
10/19/24
02:26
Jfl-F-Lxcahijqvco Pept 8460
LAB Results
10/19/24 10/19/24
07:17 10:12
Troponin I 0.065 H* 0.065 H*
Physical Exam
Constitutional: No acute distress and Comfortable
EENT: Anicteric and Moist mucous membranes
Cardiovascular: Rhythm & rate is regular, Pedal edema is absent, JVD pressure is normal and Systolic murmur absent
Respiratory: Respiratory effort normal, Lungs clear to auscul. and Wheeze Absent
GI: Soft, Non tender, Normal bowel sounds and Distention present
Neuro/Psych: Alert, Oriented, AO x 3 and Motor deficits absent
Data Reviewed
-
Date of Service: October 22, 2024
Medical Decision Making: Reviewed Test Results and Review of Case with other Provider
EKG: Tracing Personally Visualized and interpreted
Echo: Report Reviewed by me
Labs: Labs Reviewed by me
Old Records: Reviewed
--- NOTE | 2024-10-22 09:00 | PTCARENOTE ---
Assumed care. Patient did not sleep well, complaints of feeling itchy, periods of nausea, restlessness. no rash observed. Burn upper back. Denies shortness of breath, SB with a 1st degree HB, BP 152/97. Voiding in the urinal, 1000 cc of yellow urine
emptied, lights dimmed, call villalpando in reach
[2024-10-22] MEDS: FARXIGA 10 MG PO (09:25)
[2024-10-22] MEDS: ENTRESTO 97 MG/103 MG 1 TAB PO (09:25)
[2024-10-22] MEDS: COREG PO (09:26)
[2024-10-22] MEDS: ALDACTONE 25 MG PO (09:26)
[2024-10-22] MEDS: LASIX 40 MG IV (09:26)
[2024-10-22] MEDS: ELIQUIS 5 MG PO (09:26)
[2024-10-22 09:34] VITALS: BP 135/94
--- NOTE | 2024-10-22 10:26 | CM ---
Reviewed chart. Met with Mr. Harmon to review discharge plans. He states he is feeling better and maybe able to go home soon. Prior to admission he resides alone in a second floor walk-up Condo with a full flight of steps to get to the condo.
Prior to admission he was independent with ambulation and adls. He does not have any DME in the home. He has a prescription plan and uses [facility]. Medical work-up in progress. The discharge plan is to return home when medically stable.
[2024-10-22] MEDS: COREG 12.5 MG PO (10:56)
--- NOTE | 2024-10-22 13:12 | PTCARENOTE ---
Discharge teaching completed, patient verbalized understanding. IV and telemetry will be removed prior to discharge
--- NOTE | 2024-10-22 13:54 | PTCARENOTE ---
Patient discharged, escorted to ED entrance
--- NOTE | 2024-10-22 16:16 | W.PN.HOSP.TC ---
Addendum entered and electronically signed by Celso Carranza MD 10/24/24 15:35:
Add on to diagnosis list:
Essential HTN
Original Note:
Today's Communication/Plan
-
d/c home
Assessment / Plan
Assessment / Plan
RACIEL 3/4
Global hypokinesis with moderate to severely reduced left ventricular function
estimated ejection fraction 30 to 35%.
Mild aortic regurgitation
Mild mitral regurgitation
No evidence of thrombus in the left atrial appendage
Dilated ascending aorta 4.0 cm

A-fib with RVR:
-Diltiazem drip has been discontinued
-Continue anticoagulation with Eliquis
-converted in NSR post CV
-Hydralazine/metoprolol discontinued, switched to Coreg per cardiology recommendation
Acute transaminitis - improved
-Mixed hepatocellular cholestatic pattern, mild
-Likely due to decreased perfusion in the setting of rapid heart rate
Acute on Chronic HFrEF:
-Currently compensated
-Afterload reduction with Entresto, dose increased by cards.
-Continue empagliflozin and spironolactone
-Patient to be maintained on oral Lasix 40 mg daily as needed discharge
MAGO
-cr normalized to 1.2, close to baseline
CODE STATUS: Full code
More than 30 minutes spent in discharge including
Final examination of the patient
Summarizing hospital stay
Instructions for continuing care to all relevant caregivers
Preparation of discharge records, prescriptions, and referral forms
Total time spent (in minutes): 39mins
Anticipated Discharge: Today
Subjective/Interval History
-
Date of Service: October 22, 2024
Remains in sinus rhythm
No chest discomfort or shortness of breath
No other reported problems overnight
Objective Data
-
Vital Signs:
Vital Signs
Temp Pulse Resp BP Pulse Ox
97.9 F 55 18 135/94 99
10/22/24 11:28 10/22/24 09:34 10/22/24 11:28 10/22/24 09:34 10/22/24 11:28
I&O
10/21/24 10/22/24 10/23/24
06:59 06:59 06:59
Intake Total 600 / 600 600 / 600
Output Total 2875 / 2875 2900 / 2900 1000 / 1000
Balance -2275 / -2275 -2300 / -2300 -1000 / -1000
Review of Systems
-
Respiratory: Reports No Symptoms
Cardiac: Reports No Symptoms
Abdomen/GI: Reports No Symptoms
Physical Exam
-
General: No Apparent Distress and Comfortable
HEENT: Negative Oxygen
Respiratory: Clear to Auscultation
Cardiac: Regular Rhythm and S1/S2; Negative Murmur or Rub
GI: Soft, Nontender and Nondistended
Musculoskeletal: No Edema
Neuro: Awake, Alert, Oriented, No Motor Deficits and Nonfocal/Grossly Intact
Psych: Calm
--- NOTE | 2024-10-22 18:02 | W.DCSUMMARY ---
Discharge Summary
Discharge Data
Date of Admission: 10/19/24
Date of Discharge: 10/22/24
-
Pending Results: No
Hospital Course
Discharging Physician : Dr Celso Carranza
Disposition : Home
Primary care physician : Dr Reyes Shabazz
Principal Discharge diagnosis :
Atrial fibrillation with rapid ventricular rate
Acute on chronic systolic congestive heart failure
Acute kidney injury
Acute transaminitis
Chronic Discharge diagnosis :
Nonischemic cardiomyopathy
Hospital Course :
Patient is a 54-year-old male with mentioned past medical history came to ER after having progressive orthopnea/nocturnal dyspnea. Patient have a history of systolic heart failure and A-fib for which patient undergone cardioversion. Last visit
cardioversion attempt was aborted as patient was noted to having left atrial appendageal thrombus. Patient was planned to be managed medically with reevaluation in 4 to 6 weeks for cardioversion. Unfortunately patient continued to have symptoms
and presented again. Patient was started on initially on Cardizem drip which was discontinued due to known systolic dysfunction. Patient was started on oral beta-ellen for rate control. EP cardiology was involved in care and patient underwent a
repeat transesophageal echocardiogram which showed clot dissolution and patient was successfully cardioverted. Patient was also provided IV diuretic therapy as there was component of heart failure exacerbation. Patient medication adjusted and
patient was discharged to home at this point after improvement with
Important imaging findings :
None
Procedure findings :
None
Discharge Plan
-
Patient Disposition: Home (Routine Discharge)
Discharge Diagnosis/Procedures: Afib/RVR, Systolic HF
Condition: Fair
Diet: 2 Gram Sodium
Additional Diets: Avoid alcohol/Caffeine
Activity: As tolerated and No strenuous activity
Driving Restrictions: As prior to admission
Bathing Restrictions: OK to Shower
Referrals:
Reyes Shabazz MD [Family Provider] - in one week
Prescriptions:
New
carvedilol 12.5 mg Tablet
12.5 mg PO BID Qty: 60 2RF
spironolactone 25 mg Tablet
25 mg PO DAILY Qty: 30 0RF
Entresto 97-103 mg Tablet
1 tab PO BID Qty: 60 2RF
furosemide [Lasix] 40 mg tablet
40 mg PO DAILY Qty: 30 2RF
Continued
Eliquis 5 mg Tablet
5 mg PO BID Qty: 60 0RF
Jardiance 10 mg Tablet
10 mg PO DAILY Qty: 30 0RF
Discontinued
Entresto 24-26 mg Tablet
1 tab PO BID Qty: 60 0RF
spironolactone 25 mg Tablet
50 mg PO BID Qty: 60 0RF
metoprolol succinate 50 mg Tablet Extended Release 24 Hr
50 mg PO DAILY
aspirin [Aspir-81] 81 mg Tablet,Delayed Release (Dr/Ec)
81 mg PO DAILY
Discharge Orders:
Discharge Patient (As Directed); Ordered 10/22/24
Ordered By: Celso Carranza
Care Plan Goals
Care Plan Goals:
Problem: Readiness for enhanced knowledge related to diagnosis and treatment plan
Goal: Understand your diagnosis and treatment plan needs, including medications if applicable.
Instructions: Know your diagnosis, underlying causes and treatment plan options, including medications if applicable. Consult with your health care team to learn about your diagnosis and treatment plan, including medications if applicable.
Discharge Date and Time
Discharge Date/Time: 10/22/24 13:55
Print Language: FINNISH
== END 2024-10-22 13:55 | disposition home or self-care (01) | DRG 308 ==
LOC: IVU 05:45
PROVIDERS: Internal Medicine Cardiovascular Disease; ADMITTING PHYSICIAN Internal Medicine; ATTENDING PHYSICIAN Hospitalist; CONSULT PHYSICIAN Student in an Organized Health Care Education/Training Program; EMERGENCY PHYSICIAN Student in an Organized Health Care Education/Training Program; FAMILY PHYSICIAN Internal Medicine
PROC: 5A2204Z Restoration of Cardiac Rhythm, Single (ICD-10-PCS; 2024-10-21)
PROC: B24BZZ4 Ultrasonography of Heart with Aorta, Transesophageal (ICD-10-PCS; 2024-10-21)
DX: I48.0 Paroxysmal atrial fibrillation (principal); I50.23 Acute on chronic systolic (congestive) heart failure; I5A Non-ischemic myocardial injury (non-traumatic); N17.9 Acute kidney failure, unspecified; I11.0 Hypertensive heart disease with heart failure; I42.8 Other cardiomyopathies
CPT/HCPCS: 71045; 80048; 80053; 82248; 83835; 83880; 84484; 85025; 85027; 92960; 93005; 93312; 93320; 93325; 96361; 96374; 99291

== ENCOUNTER 2025-04-21 08:57 | Inpatient (IN) | payer OTHER, SELFPAY ==
[2025-04-21] VITALS (17 sets, daily range): BP systolic 136–162; BP diastolic 88–122; BMI 21.7; BMI 21.0
[2025-04-21 04:02] LABS: Hematocrit 42.2 % (39.0-52.0); Hemoglobin 14.2 g/dL (13.0-18.0); Mean Corp Hgb Conc. 33.6 g/dL (33.0-37.0); Mean Corpuscular Volume 87.2 fL (80.0-94.0); Nucleated Red Blood Cells % 0 % (-); Platelet Count 226 10^3/uL (130-400); Red Cell Dist. Width 13.2 % (11.5-14.5)
[2025-04-21 04:40] LABS: ALT (SGPT) 41 U/L (0-50); AST (SGOT) 33 U/L (17-59); Albumin 3.8 g/dl (3.5-5.0); Alkaline Phosphatase 69 U/L (38-126); Blood Urea Nitrogen 29 mg/dl (9-20); Calcium 9.4 mg/dl (8.4-10.2); Carbon Dioxide 24 mmol/L (22-30); Chloride 109 mmol/L (98-107); Estimated Creatinine Clearance 69 ml/min; Glucose 95 mg/dl (70-99); Potassium 4.5 mmol/L (3.5-5.1); Sodium 139 mmol/L (135-145); Total Protein 6.3 g/dl (6.3-8.2); eGFR > 60.00
--- NOTE | 2025-04-21 05:21 | ED.GENMED ---
History of Present Illness
General
Chief Complaint: Heart Rate Problem
Source: patient
Exam Limitations: none
Time Seen by Provider: 04/21/25 02:52
Nursing documentation reviewed up to this point in time: agreed with
History of Present Illness
History of Present Illness:
Is a pleasant 54-year-old male who presents the emergency department with palpitations. He has a history of paroxysmal atrial fibrillation for which he is maintained on Eliquis. He has mostly been on Eliquis continuously since October. He states
that he was in a surfing tournament at the beginning of March and had an accident where he thought his rib was broken. His picking supervisor, Dr. Will of [place], advised him to stay off the Eliquis for a week. Since he got back on it he has not
missed any doses. Patient denies chest pain or shortness of breath. He does have cardiac hypertrophy. Denies fever, chills, nausea or vomiting.
Past History
Past History
ED Past Medical History: HTN
ED Past Surgical History: None
Social History
Tobacco: Non-smoker
Phy Exam
Physical Exam
Physical Exam:
.
Course
Orders/Labs/Results
Orders:
Orders
04/21/25 01:48
ECG [Electrocardiogram (*1)] Urgent
Reason for Study: Atrial Fibrillation
04/21/25 01:49
EKG- Treatment ONCE
04/21/25 03:51
CMP [Comprehensive Metabolic Panel] Urgent
Complete Blood Count/With Diff Urgent
04/21/25 04:05
CT Chest PE Study Urgent
Comment:
Reason For Exam: tachy, off eliquis,
04/21/25 05:47
Diltiazem HCl [Cardizem] 20 mg IV NOW STA
04/21/25 06:00
Diltiazem 125 mg/125 ml Nss [Cardizem] 125 mg in 125 ml IV PER PROTOCOL
Initial dose in mg/hr, then titrate:: 5
Titrate to keep:: Heart rate 80-100 bpm
Titrate by mg/hr:: 5 mg/hr
Frequency of titrations (minutes):: 15
Maximum dose in mg/hr:: 15
04/21/25 08:43
Admit/Transfer Patient As Directed
Co-Sign Provider:
Level of Care: Inpatient admission
Assign to:: Telemetry
Physician / Group: Hospitalist
Diagnosis: Afib + RVR
Reason for Telemetry: Arrhythmia
Date to Stop Telemetry: 04/24/25
Time to Stop Telemetry: 11:00
Reason for Hospitalization: Afib RVR, cardioversion
Expected length of stay greater than two midnights?: Yes
ELOS- Estimated Length of Stay in days: 2
I certify the patient meets the requirements for IP care: Yes
04/21/25 08:44
PRN Pain Medication Management As Directed
May give lesser potent ordered pain med per pt: Yes
preference::
Protocol:: Medication orders for pain may be administered in a
manner that supports deferring to patient preference
when the pt is:
- Requesting an ordered lesser potent pain medication.
Least to most potent pain medications are defined
as: acetaminophen < NSAID < tramadol < opioids
(morphine, oxycodone, hydromorphone).
- Requesting a lesser dose of the same medication IF
ORDERED.
- Requesting a less intrusive route of administration
if both routes are prescribed by the provider (PO <
IV).
04/21/25 08:47
Apixaban [Eliquis] 5 mg PO NOW STA
04/21/25 08:48
Code Status As Directed
Resuscitation Status: Full Code
04/21/25 11:12
Bisacodyl [Dulcolax] 10 mg RECTAL [id number] PRN
Docusate W/Senna [Senokot-S] 1 tablet PO BIDPRN PRN
Furosemide [Lasix] 40 mg PO DAILY PRN swellng/weigh gain > 2lb in 24hr
Polyethylene Glycol Powder [Miralax] 17 grams PO DAILYPRN PRN
04/21/25 11:12
Activity As Directed
Activity Level: As Tolerated
Vital Signs As Directed
Frequency: Per unit guidelines
04/21/25 20:00
Apixaban [Eliquis] 5 mg PO BID
Sacubitril 97/Valsartan 103 [Entresto 97 mg/103 mg] 1 tab PO BID
04/22/25 08:00
Amlodipine [Norvasc] 2.5 mg PO DAILY
Dapagliflozin [Farxiga] 10 mg PO DAILY
Metoprolol Xl [Toprol Xl] 25 mg PO DAILY
Spironolactone [Aldactone] 50 mg PO DAILY
04/24/25 11:00
DC Protocol for Telemetry ONCE
Abnormal Lab Results
04/21/25
03:51
MPV 10.5 H fL
(7.4-10.4)
Chloride 109 H mmol/L
(98-107)
BUN 29 H mg/dl
(9-20)
04/21/25 03:51
04/21/25 03:51
Vital Signs
Initial and Last Documented VS:
Initial Vital Signs
Temp Pulse Resp BP Pulse Ox
97.8 F 108 18 138/88 100
04/21/25 01:55 04/21/25 01:55 04/21/25 01:55 04/21/25 01:55 04/21/25 01:55
Last Documented Vital Signs
Temp Pulse Resp BP Pulse Ox
98.4 F 80 16 161/117 98
04/22/25 03:00 04/22/25 03:00 04/22/25 03:00 04/22/25 03:00 04/22/25 03:00
*Radiology
Radiology exam reviewed: radiology read reviewed
*Pulse Oximetry
SaO2: 97
Oxygen Mode of Delivery: Room air
Patient hypoxic: no
*EKG
Interpreted by ED Provider?: Yes
EKG Intrepretation Date: 04/21/25
Interpretation: abnormal
Heart Rate: 104
Rate: tachycardiac
Rhythm: a-fib
[place]: normal axis
Interval: normal interval
QRS Pattern: normal QRS
Ischemia: no ischemia
*Final Inspector Paper Interpretation
Interpretation: abnormal
Heart Rate: 89
Rhythm: a-fib
*Critical Care Note
Total Time (30-74mins, 75-104mins- exclusive of procedures): Not Applicable
Update Note
Update Note:
NAME: CHRIS PEMBERTON
DATE OF EXAM: 04/21/2025
Patient No: [id number]
Physician: ARGENT[place]^Maurice
Date of : 1970
Past Medical History (entered by Technologist):
Reason For Exam (entered by Technologist): h/o afib
Other Notes (entered by Technologist): came to er for elevated heart rate
Additional Information (per Vision Radiologist):
CTA chest with IV contrast
IMPRESSION:
No pulmonary embolism. Moderate cardiomegaly with reflux of contrast into the IVC, could reflect heart failure; correlate with echocardiogram.
Lungs clear aside from dependent atelectasis. Central airways patent. No pneumothorax or pleural effusion. Liver enlarged. Nonobstructive bilateral renal calculi.
Finalized at 5:40 AM EST
Doni Navas M.D.
This report has been electronically signed and verified by the Radiologist whose name is printed above.
Spoke with Dr. Soliman, cardiology, who agreed with plan to admit to the hospitalist service and RACIEL cardioversion. Patient did have an atrial clot prior to last cardioversion. Patient did take a break and the Eliquis for his rib injury several
weeks back
ED Attending Note
-
Portions of this chart may have been created with voice recognition software.� Occasional wrong word or��sound alike� substitutions may have occurred due to the inherent limitations of voice recognition software.
Discharge Plan
Departure
Patient Disposition: Admit
Date of Disposition: 04/21/25
Time of Disposition: 06:48
Admit to: Telemetry
Presentation/result/management discussed w/ accepting MD/DO: Hospitalist
Discharge Problem:
Atrial fibrillation with RVR
Interventions
Interventions:
*Risk Screen - Suicide Last Done: 04/21/25 11:11
*General Assessment Last Done: 04/21/25 03:25
*Neglect/Abuse Screening Last Done: 04/21/25 07:44
*ED- Fall Risk Assessment Last Done: 04/21/25 11:11
*ED COVID-19 Vaccine History Last Done: 04/21/25 03:25
*Nursing Disposition Last Done: 04/21/25 11:11
ED- Cardiac Assessment Last Done: 04/21/25 03:25
ED- Pulmonary Assessment Last Done: 04/21/25 03:25
Discharge Date and Time
Discharge Date/Time: 04/21/25 11:12
[2025-04-21] MEDS: CARDIZEM 20 MG IV (05:59)
[2025-04-21] MEDS: CARDIZEM 125 IV (06:09)
--- NOTE | 2025-04-21 08:54 | W.PN.UPDATE ---
Addendum entered and electronically signed by Kaitlynn Mack MD 04/21/25 09:06:
IMPRESSION: Examination is negative for pulmonary embolism.
Ascending aorta is dilated with short axis diameter of 4.2 cm at the level the right main pulmonary artery. Follow-up imaging is recommended, usually recommended at a timeframe of one year. A follow-up CT angiography with attention to the aorta can
be performed.
Bilateral nephroliths.
Mild dependent atelectasis in the posterior lungs.
Fracture of the posterior left ninth rib, which appears to be acute to subacute. On review of ER note, patient reportedly in a surfing department at the beginning of March, with accident where he thought his rib was broken.
Diltated Ascending Aorta - 4.2cm on CT
-follow up imaging in one year
Original Note:
Update Note
Progress Note Update
This is an addendum to H&P written by resident MD Ita Westbrook
I saw and examined the patient.
The WARDROBE SUPERVISOR's note was reviewed and I agree with the note.
Comment:
Mr. Jose Angel Harmon is a 54 yo man with hx atrial fibrillation s/p mutliple cardioversions, ablation x 1 (2022), HFrEF (30-35%; 10/21/24), essential HTN who presents to the ER with palpitations x 1 week. He had a rib fracture a few weeks ago and was
briefly off of Eliquis.
Triage VS: T 97.8, P 108, RR 18, BP 138/88, SpO2 100%
LABS: WBC 6.4, Hg 14.2, Na 139, K+ 4.5, CO2 24, BUN 29, Cr 1.1, Glucose 95
EKG: Afib with RVR, rate 104, LVH, TWI lateral leads
MAR: IV Diltiazem gtt
Atrial Fibrillation with RVR
-s/p multiple cardioversions and ablation x 1 in past
-Give Eliquis now
-admit to telemetry
-keep NPO for possible RACIEL cardioversion
-discussing with cardiology resuming home Metoprolol and stopping Diltiazem gtt
-formal Cardiology consult
-continue FUNDS DEVELOPMENT DIRECTOR Eliquis BID
Heart failure reduced EF
-EF 30-35% RACIEL 10/21/24
-continue FUNDS DEVELOPMENT DIRECTOR Entresto
-FUNDS DEVELOPMENT DIRECTOR Jardiance
-FUNDS DEVELOPMENT DIRECTOR Spironolactone
-FUNDS DEVELOPMENT DIRECTOR Metop XL
-patient takes Lasix as needed; appears euvolemic on exam and reports not taking Lasix for months
Essential HTN
-resume amlodipine tomorrow
DVT PPx Eliquis
Remainder of plan per Resident Physician's note
--- NOTE | 2025-04-21 09:07 | HPS.HSE ---
Family Physician
-
Family Physician: Reyes Shabazz MD
Chief Complaint
-
Palpitations, fatigue, mild SOB
History of Present Illness
54 year old male with history of paroxysmal Afib on Eliquis s/p cardioversion 10/2024, cardiac hypertrophy, HFrEF, HTN, sleep apnea, who presents with palpitations x 1 week. Papitations were intermittent at first butr became more constant as the
days went by. He also reports feeling of being 'sluggish' as mild dyspnea over the past week. He had been consistently on Eliquis since October 2024, but had trauma to left chest while surfing, and was advised by his analytic manager (Dr Will of
[place]) to hold Eliquis for some time. Eliquis was held for a week and resumed on 04/06/2025 and he has been consistent with Eliquis ever since. Per pat, CXR after injury showed no rib fractures or other acute chest abnormalities.
Of note, he has a prior history of atrial clot on RACIEL in September 2024, and successful cardioversion was done after a second RACIEL in October showed no atrial thrombus.
He reports feeling better since being placed on Cardizem drip in ED. Denies chest pain, SOB, or current palpitations. He may have had a mild cold recently, but otherwise has been of stable health prior to current complaint. Denbies fevers/chills,
nausea/vomiting, diarrhea/const/blood stool, urinary changes.
Medical History
Past Medical History
Past Medical History: Reports Arrhythmia (Paroxysmal afib), CHF (HFrEF), HTN and Other (Sleep apnea, BPH, cardiac hypertrophy)
Past Surgical History: Reports Other (root canal)
Social History
Tobacco: Non-smoker
Alcohol: None
Drug: None
Personal:
Living: Alone
Family History
Family History: Not pertinent
Allergies / Home Medications
Allergies reflects when Allergies were last updated in [facility].
Home Medications with original date entered in [facility]
Allergy/Medication List:
Allergies
Allergy/AdvReac Type Severity Reaction Status Date / Time
No Known Allergies Allergy Verified 04/21/25 01:50
Home Medications
apixaban 5 mg tablet (Eliquis) 5 mg PO BID #60 tabs 03/05/23
empagliflozin 10 mg tablet (Jardiance) 10 mg PO DAILY #30 tabs 03/05/23
sacubitril 97 mg-valsartan 103 mg tablet (Entresto) 1 tab PO BID Heart disease/condition #60 tabs 10/22/24
amlodipine 2.5 mg tablet 2.5 mg PO DAILY 04/21/25
furosemide 40 mg tablet (Lasix) 40 mg PO DAILY PRN swellng/weigh gain > 2lb in 24hr 04/21/25
metoprolol succinate 25 mg tablet,extended release 24 hr 25 mg PO DAILY 04/21/25
spironolactone 25 mg tablet 50 mg PO DAILY 04/21/25
Review of Systems
-
History Source: Patient
Constitutional: Reports Fatigue; Denies Fever or Sleep Disturbance
Respiratory: Reports Trouble Breathing (mild SOB)
Cardiac: Denies Chest Pain, Palpitations or Syncope
Abdomen/GI: Denies Abdominal Pain, Nausea, Vomiting, Diarrhea, Constipated or Bloody Stools
: Denies Dysuria or Difficulty Voiding
Neurological: Denies Dizzy or Headache
Physical Exam
Vital Signs
Vital Signs
Temp Pulse Resp BP Pulse Ox
97.8 F 75 21 155/113 94
04/21/25 01:55 04/21/25 06:45 04/21/25 06:45 04/21/25 07:00 04/21/25 06:45
Physical Exam
General: Well Developed, Well Nourished, No Apparent Distress, Comfortable and Conversant
HEENT: NormoCephalic, Anicteric and Moist mucous membranes
Respiratory: Clear, Non Labored Respirations and Other (to crepitus to palpation, nontender chest, no chest wall ecchymosis); No Wheezes, Rales, Rhonchi or Crackles
Cardiac: S1/S2, Irregular Rhythm and Other (normal rate); No Murmur, Rub, Peripheral Edema, Calf Tenderness or JVD
GI: Soft, Non Tender, Non Distended and Normal Bowel Sounds
Genito-urinary: Clear Urine
Musculoskeletal: No Clubbing, No Cyanosis and No Edema
Skin: Warm and Dry
Neuro: Awake, Alert and Oriented
Psych: Calm
Laboratory Results
-
04/21/25 03:51
04/21/25 03:51
Laboratory Results
APTT Cancelled 04/21/25 08:06
Total Bilirubin 0.7 mg/dl (0.2-1.3) 04/21/25 03:51
AST 33 U/L (17-59) 04/21/25 03:51
ALT 41 U/L (0-50) 04/21/25 03:51
Alkaline Phosphatase 69 U/L (38-126) 04/21/25 03:51
Impression/Plan
-
IMPRESSION:
54 year old male with history of paroxysmal Afib on Eliquis s/p cardioversion 10/2024, cardiac hypertrophy, HFrEF, HTN, sleep apnea, who presents with Afib with RVR.
PLAN:
Afib with RVR:
- Received Cardizem bolus in ED then drip.
- Continue cardizem drip. Now rate controlled with occasional brief episodes of bradycardia to 40s. Defer discontinuation of cardizem drip to cardiology
- Recent pause in Eliquis. consistent Eliquis use since 04/06. Admit to telemetry for RACIEL and cardioversion
- Cardiology consult (CBC)
- Will give morning dose of Eliquis in ED, as well as Entresto and Spironolactone
- Currently NPO
HFrEF:
cardiac hypertrophy:
- RACIEL 10/21/2024 with EF 30-35%
- Currently on GDMT. continue medications as appropriate
Dilated ascending aorta:
- Present on CT PE today and recent echo. Recommend repeat imaging in one year
Essential hypertension:
- Continue home antihypertensives
Sleep apnea:
- Unspecified type
- Per pt, was cleared by sleep specialist to be off CPA after noted improvement in sleep study. Currently does not use CPAP
BPH:
- Not currently on any medications. Denies voiding difficulty or new symptoms
DVT ppx: On Eliquis
Code Status: Full Code
[2025-04-21] MEDS: ELIQUIS 5 MG PO ×2 (09:23→20:21)
[2025-04-21] MEDS: ALDACTONE 50 MG PO (09:23)
[2025-04-21] MEDS: ENTRESTO 97 MG/103 MG 1 TAB PO ×2 (09:25→20:21)
[2025-04-21] MEDS: FLUSH (NSS) 1 FLUSH IV (09:27)
--- NOTE | 2025-04-21 10:05 | CON.CAR ---
Consultation
Consultation Request
Date/Time Consultation Requested: April 21, 2025 8 AM
Date/Time Consultation Performed: April 21, 2025 10:05 AM
Requesting Provider: Hospitalist
Performing Provider: Sal Tompkins
Reason for Consultation: A-fib
Medical History
-
Chief Complaint: Fatigue shortness of breath
History of Present Illness:
54-year-old male with past medical history of paroxysmal A-fib on Eliquis with history of ablation, nonischemic cardiomyopathy HFrEF EF 30-35% on recent echo from January 2025, hypertension, who is here because of concern for A-fib. He tells me that
in the last 2 weeks he feels as if he has gone back into atrial fibrillation. He was in a surfing competition approximately 2 weeks ago and got hit in the chest. He felt as if he possibly broke some ribs and had held his Eliquis over this concern.
However, since that time he has not felt the same period. He is also felt more fatigued and short of breath since that time. Today, he denies any chest pain, fevers, chills, GI symptoms, or other sort of significant symptoms.
In the emergency room he was found to be in A-fib and started on diltiazem drip and currently his heart rate is in A-fib resting between 50 and 60 bpm. I discussed with him need for RACIEL prior to cardioversion he is agreeable.
Past Medical History
Past Medical History: Other (Nonischemic cardiomyopathy with heart failure reduced ejection fraction 30-35%, A-fib on Eliquis, hypertension, sleep apnea)
Past Surgical History: Other (Root canal)
Social History
Tobacco: Non-Smoker
Alcohol: None
Drug: None
Personal:
Living: Alone
Employment: Employed
Family History
Family History: Reviewed & Not Pertinent
Allergies / Home Medications
Allergy/AdvReac Type Severity Reaction Status Date / Time
No Known Allergies Allergy Verified 04/21/25 01:50
�Medication �Instructions �Recorded �Confirmed �Type
apixaban 5 mg tablet (Eliquis) 5 mg PO BID #60 tabs 03/05/23 04/21/25 Rx
empagliflozin 10 mg tablet 10 mg PO DAILY #30 tabs 03/05/23 04/21/25 Rx
(Jardiance)
sacubitril 97 mg-valsartan 103 mg 1 tab PO BID Heart 10/22/24 04/21/25 Rx
tablet (Entresto) disease/condition #60 tabs
amlodipine 2.5 mg tablet 2.5 mg PO DAILY 04/21/25 04/21/25 History
furosemide 40 mg tablet (Lasix) 40 mg PO DAILY PRN swellng/weigh 04/21/25 04/21/25 History
gain > 2lb in 24hr
metoprolol succinate 25 mg 25 mg PO DAILY 04/21/25 04/21/25 History
tablet,extended release 24 hr
spironolactone 25 mg tablet 50 mg PO DAILY 04/21/25 04/21/25 History
Review of Systems
-
All other systems: Negative unless noted
Physical Exam
Vital Signs
Temp Pulse Resp BP Pulse Ox
97.8 F 65 20 139/91 97
04/21/25 01:55 04/21/25 09:30 04/21/25 09:30 04/21/25 09:30 04/21/25 09:30
Lab Results
04/21/25 03:51
04/21/25 03:51
Physical Exam
General: Well Developed, Well Nourished and No Apparent Distress
HEENT: Normocephalic
Respiratory: Clear and Non Labored Respirations
Cardiac: S1/S2 and Irregular Rhythm
GI: Soft
Musculoskeletal: No Clubbing, No Cyanosis and No Edema
Skin: Warm and Dry
Neuro: AO x 3
Psych: Calm
Impression / Plan
-
A/P: 54-year-old male with past medical history of nonischemic cardiomyopathy HFrEF EF 30-35%, paroxysmal AF recent cardioversion in October 2024 on Eliquis, hypertension, sleep apnea who is here for atrial fibrillation.
Paroxysmal atrial fibrillation
- Continue Eliquis
- RACIEL cardioversion today given he has not had uninterrupted Eliquis for at least 3 weeks
- Stop diltiazem at this time can give metoprolol given plan for cardioversion later
Nonischemic cardiomyopathy HFrEF EF 30-35%
- GDMT with Entresto, Jardiance, metoprolol, spironolactone
- Follows with Dr. Will
Hypertension
- As above
Data Reviewed
-
EKG: Tracing Personally Visualized and interpreted (af)
Medical Tests (Nuc Med, Echo etc): Report Reviewed by me and Discussed with Patient
Labs: Labs Reviewed by me
[2025-04-21] MEDS: TOPROL XL 25 MG PO ×2 (10:12→15:40)
--- NOTE | 2025-04-21 14:14 | W.DCSUMMARY ---
Discharge Summary
Discharge Data
Date of Admission: 04/21/25
Date of Discharge: 04/22/25
-
Pending Results: No
Hospital Course
Discharging Physician : Dr. Kaitlynn Mack
Disposition : Home
Primary care physician : Dr. Reyes Shabazz
Principal Discharge diagnosis : Atrial Fibrillation with RVR, s/p RACIEL Cardioversion
Hospital Course :
Mr. Jose Angel Harmon is a 54 yo man with hx atrial fibrillation s/p multiple cardioversions, ablation x 1 (2022), HFrEF (30-35%; 10/21/24), essential HTN who presents to the ER with palpitations x 1 week. He had a rib fracture a few weeks ago and was
briefly off of Eliquis.
EKG with afib with RVR to 108 on arrival. Labs unremarkable. He was started on an IV Diltiazem gtt with improvement in rates, then transitioned to his home regimen with Metoprolol XL. He was admitted to medicine with Cardiology consulting. He
went for RACIEL Cardioversion.
RACIEL demonstrated left atrial thrombus. His Eliquis was continued. His Metoprolol is increased from XL 25mg daily to XL 50mg twice a day. Patient tolerated this increased dose. He will follow up with his Bank Analyst as outpatient to discuss
timing of repeat RACIEL.
Time spent on discharge was 35 minutes.
Important imaging findings :
CTA
IMPRESSION: Examination is negative for pulmonary embolism.
Ascending aorta is dilated with short axis diameter of 4.2 cm at the level the right main pulmonary artery. Follow-up imaging is recommended, usually recommended at a timeframe of one year. A follow-up CT angiography with attention to the aorta can
be performed.
Bilateral nephroliths.
Mild dependent atelectasis in the posterior lungs.
Fracture of the posterior left ninth rib, which appears to be acute to subacute. On review of ER note, patient reportedly in a surfing department at the beginning of March, with accident where he thought his rib was broken.
RACIEL 04/21/25
RACIEL:
Left Ventricle:
Ejection fraction is 30-35%. by visual assessment. Left ventricular ejection fraction is moderately reduced. The left ventricular wall motion is diffusely hypokinetic.
Left Artial Appendage:
There is spontaneous echo contrast noted in the left atrium and left atrial appendage. Thrombus is observed in the left atrial appendage.
Procedure findings :
Discharge Plan
-
Patient Disposition: Home (Routine Discharge)
Discharge Diagnosis/Procedures: Atrial Fibrillation with rapid ventricular rate; left atrial thrombus
Diet: Regular
Activity: As tolerated
Driving Restrictions: As prior to admission
Bathing Restrictions: None
Referrals:
Reyes Shabazz MD [Family Provider, Internal Medicine] - in less than 1 week
Additional Discharge Medication Instructions: Continue Eliquis uninterrupted as directed
Your Metoprolol is increased from 25 mg daily to 50mg twice a day. Take your next dose of Metoprolol tomorrow morning (04/23/25).
Follow up with your Bank Analyst, Dr. Will, at next available appointment.
Prescriptions:
New
metoprolol succinate 50 mg tablet extended release 24 hr
50 mg PO BID Qty: 60 1RF
Continued
Eliquis 5 mg Tablet
5 mg PO BID Qty: 60 0RF
Jardiance 10 mg Tablet
10 mg PO DAILY Qty: 30 0RF
sacubitril-valsartan [Entresto] 97-103 mg Tablet
1 tab PO BID Qty: 60 2RF
amlodipine 2.5 mg Tablet
2.5 mg PO DAILY
furosemide [Lasix] 40 mg tablet
40 mg PO DAILY PRN (Reason: swelling/wt gain > 2lb in 24hr)
spironolactone 25 mg tablet
50 mg PO DAILY
Discontinued
metoprolol succinate 25 mg Tablet Extended Release 24 Hr
25 mg PO DAILY
Discharge Orders:
Discharge Patient (As Directed); Ordered 04/22/25
Ordered By: Kaitlynn Mack
Discharge Date and Time
Print Language: [place]VADOREAN
--- NOTE | 2025-04-21 15:05 | W.PN.UPDATE ---
Update Note
Progress Note Update
Large layering thrombus in the TADEO, no DCCV performed.
Metoprolol increased to 50mg daily given CMY and hypertension.
Recommend repeat consideration of ARCIEL/DCCV in 4 weeks.
[2025-04-22 03:00] VITALS: BP 161/117
[2025-04-22 05:48] LABS: Hematocrit 44.0 % (39.0-52.0); Hemoglobin 14.4 g/dL (13.0-18.0); Mean Corp Hgb Conc. 32.7 g/dL (33.0-37.0); Mean Corpuscular Volume 88.2 fL (80.0-94.0); Platelet Count 214 10^3/uL (130-400); Red Cell Dist. Width 13.0 % (11.5-14.5)
[2025-04-22 06:00] VITALS: BMI 21.1
[2025-04-22 06:18] LABS: Blood Urea Nitrogen 23 mg/dl (9-20); Calcium 8.6 mg/dl (8.4-10.2); Carbon Dioxide 28 mmol/L (22-30); Chloride 107 mmol/L (98-107); Estimated Creatinine Clearance 73 ml/min; Glucose 86 mg/dl (70-99); Magnesium 2.1 mg/dl (1.6-2.3); Potassium 4.0 mmol/L (3.5-5.1); Sodium 138 mmol/L (135-145); eGFR > 60.00
[2025-04-22 06:45] LABS: TSH 1.08 uIU/ml (0.47-4.68)
[2025-04-22 07:50] VITALS: BP 157/108
[2025-04-22] MEDS: NORVASC 2.5 MG PO (08:35)
[2025-04-22] MEDS: FARXIGA 10 MG PO (08:35)
[2025-04-22] MEDS: ELIQUIS 5 MG PO (08:35)
[2025-04-22] MEDS: TOPROL XL 50 MG PO ×2 (08:35→10:16)
[2025-04-22] MEDS: ALDACTONE 50 MG PO (08:36)
[2025-04-22] MEDS: ENTRESTO 97 MG/103 MG 1 TAB PO (08:36)
--- NOTE | 2025-04-22 09:46 | W.PN.CD ---
Today's Communication / Plan
-
increase metoprolol to 50mg po bid
eliquis without interruption
relook planned for 4 weeks
No contraindication to discharge today
f/u with Dr Will
Impression / Plan
-
A/P: 54-year-old male with past medical history of nonischemic cardiomyopathy HFrEF EF 30-35%, paroxysmal AF recent cardioversion in October 2024 on Eliquis, hypertension, sleep apnea who is here for atrial fibrillation.
Paroxysmal atrial fibrillation
- Continue Eliquis
- RACIEL cardioversion showed TADE[place] thrombus
-will need relook and cardioversion in 4 weeks, my office will call to schedule
-rates and bp up, will increase metoprolol to 50mg bid
Nonischemic cardiomyopathy HFrEF EF 30-35%
-euvolemic NYHA 1
- GDMT with Entresto, Jardiance, metoprolol(increasing), spironolactone
- Follows with Dr. Will
Hypertension
- As above, increasing bb
Physical Exam
Vital Signs/Labs
Vital Signs
Temp Pulse Resp BP Pulse Ox
98 F 69 14 157/108 97
04/22/25 07:50 04/22/25 08:35 04/22/25 07:50 04/22/25 08:35 04/22/25 07:50
04/21/25 04/22/25 04/23/25
06:59 06:59 06:59
Actual Weight 142 lb 6.698 oz 138 lb 11.2 oz
04/22/25 05:23
04/22/25 05:23
APTT Cancelled 04/21/25 08:06
Magnesium 2.1 mg/dl (1.6-2.3) 04/22/25 05:23
TSH 1.08 uIU/ml (0.47-4.68) 04/22/25 05:23
Physical Exam
Constitutional: No acute distress
Cardiovascular: Rhythm & rate is regular, Pedal edema is absent, JVD pressure is normal, Systolic murmur absent and Diastolic murmur absent
Respiratory: Respiratory effort normal, Lungs clear to auscul., Wheeze Absent, Crackles Absent and Rhonchi Absent
GI: Non tender
Neuro/Psych: AO x 3
Data Reviewed
-
Date of Service: April 22, 2025
--- NOTE | 2025-04-22 10:33 | W.PN.HOSP.TC ---
Today's Communication/Plan
-
OK for DC today
Assessment / Plan
Assessment / Plan
Mr. Jose Angel Harmon is a 54 yo man with hx atrial fibrillation s/p mutliple cardioversions, ablation x 1 (2022), HFrEF (30-35%; 10/21/24), essential HTN who presents to the ER with palpitations x 1 week. He had a rib fracture a few weeks ago and was
briefly off of Eliquis.
RACIEL:
Left Ventricle:
Ejection fraction is 30-35%. by visual assesment. Left ventricular ejection fraction is moderately reduced. The left ventricular wall motion is diffusely hypokinetic.
Left Artial Appendage:
There is spontaneous echo contrast noted in the left atrium and left atrial appendage. Thrombus is observed in the left atrial appendage.
Atrial Fibrillation with RVR
-s/p multiple cardioversions and ablation x 1 in past
-s/p RACIEL on 04/21 with finding of thrombus in left atrial appendage
-continue Eliquis uninterrupted- patient understands importance
-relook in 4 weeks
-DRAWING KILN OPERATOR metoprolol increased to 50 BID - patient tolerating
-appreciate Cardiology
f/u with Dr Will as outpatient
Heart failure reduced EF
-EF 30-35% RACIEL 10/21/24
-continue DRAWING KILN OPERATOR Entresto
-DRAWING KILN OPERATOR Jardiance
-DRAWING KILN OPERATOR Spironolactone
-DRAWING KILN OPERATOR Metop XL --> increased
-patient takes Lasix as needed; appears euvolemic on exam and reports not taking Lasix for months
Essential HTN
-resume amlodipine tomorrow
DVT PPx Eliquis
Anticipated Discharge: Today
Subjective/Interval History
-
Date of Service: April 22, 2025
feeling okay on higher dose metoprolol
Objective Data
-
Labs:
Laboratory Results
04/22/25
05:23
WBC 6.1
Hgb 14.4
Hct 44.0
Plt Count 214
Sodium 138
Potassium 4.0
Chloride 107
Carbon Dioxide 28
BUN 23 H
Creatinine 1.0
Glucose 86
Calcium 8.6
Vital Signs:
Vital Signs
Temp Pulse Resp BP Pulse Ox
98 F 96 14 159/112 97
04/22/25 07:50 04/22/25 10:16 04/22/25 07:50 04/22/25 10:16 04/22/25 09:37
I&O
04/21/25 04/22/25 04/23/25
06:59 06:59 06:59
Intake Total 720 / 720
Output Total 500 / 500
Balance -500 / -500 720 / 720
Review of Systems
-
History Source: Patient
All other systems: Reviewed and negative
Physical Exam
-
General: No Apparent Distress and Comfortable
HEENT: Negative Oxygen
Respiratory: Clear to Auscultation
Cardiac: S1/S2 and Irregular Rhythm
GI: Soft, Nontender and Nondistended
Musculoskeletal: No Edema
Neuro: Awake, Alert, Oriented, No Motor Deficits and Nonfocal/Grossly Intact
Psych: Calm
Data Reviewed
-
Diagnostic Radiology: Report Reviewed by me
Labs: Labs Reviewed by me
[2025-04-22 11:09] VITALS: BP 148/109
[2025-04-22 11:13] VITALS: BP 160/95
--- NOTE | 2025-04-22 14:13 | W.DS.TRANS ---
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
-
Discharge Instructions:
Discharge Diagnosis/Procedures Atrial Fibrillation with rapid ventricular rate;
left atrial thrombus
Diet Regular
Activity As tolerated
Driving Restrictions As prior to admission
Bathing Restrictions None
Instructions:
Stand-Alone Forms:
Changes to Home Medications: Yes
Discharge Medications:
DC Medications w/original date entered in [facility]
apixaban 5 mg tablet (Eliquis) 5 mg PO BID #60 tabs 03/05/23
empagliflozin 10 mg tablet (Jardiance) 10 mg PO DAILY #30 tabs 03/05/23
sacubitril 97 mg-valsartan 103 mg tablet (Entresto) 1 tab PO BID Heart disease/condition #60 tabs 10/22/24
amlodipine 2.5 mg tablet 2.5 mg PO DAILY Blood Pressure 04/21/25
furosemide 40 mg tablet (Lasix) 40 mg PO DAILY PRN swelling/wt gain > 2lb in 24hr 04/21/25
spironolactone 25 mg tablet 50 mg PO DAILY Heart Failure 04/21/25
metoprolol succinate 50 mg tablet,extended release 24 hr 50 mg PO BID #60 tabs 04/22/25
Home Medication Changes
Metoprolol dosing increased to 50mg BID
Pending Results: No
--- NOTE | 2025-04-22 14:40 | CM ---
Met with Mr. Harmon to review discharge plans. He states he is feeling better and ready to go home.
Prior to admission he resides alone in a second floor walk-up Condo with a full flight of steps to get to the condo; he was independent with ambulation and adls. He does not have any DME in the home. He has a prescription plan and uses [facility].
Plan: Discharge to home with no identified needs.
[2025-04-22 15:03] VITALS: BP 149/95
== END 2025-04-22 15:50 | disposition home or self-care (01) | DRG 309 ==
LOC: 3 WEST ACU 08:57
PROVIDERS: Student in an Organized Health Care Education/Training Program; ADMITTING PHYSICIAN Student in an Organized Health Care Education/Training Program; EMERGENCY PHYSICIAN Student in an Organized Health Care Education/Training Program; FAMILY PHYSICIAN Internal Medicine; OTHER PHYSICIAN Internal Medicine Cardiovascular Disease
PROC: 5A2204Z Restoration of Cardiac Rhythm, Single (ICD-10-PCS; 2025-04-21)
PROC: B24BZZ4 Ultrasonography of Heart with Aorta, Transesophageal (ICD-10-PCS; 2025-04-21)
DX: I48.0 Paroxysmal atrial fibrillation (principal); I50.22 Chronic systolic (congestive) heart failure; J98.11 Atelectasis; I51.3 Intracardiac thrombosis, not elsewhere classified; I11.0 Hypertensive heart disease with heart failure; G47.30 Sleep apnea, unspecified; Z79.01 Long term (current) use of anticoagulants; Z79.84 Long term (current) use of oral hypoglycemic drugs; Z79.899 Other long term (current) drug therapy; I77.819 Aortic ectasia, unspecified site; N40.0 Benign prostatic hyperplasia without lower urinary tract symptoms
CPT/HCPCS: 71275; 80048; 80053; 83735; 84443; 85025; 85027; 93005; 93312; 93320; 93325; 96365; 96366; 99285; Q9967

== ENCOUNTER 2025-05-03 11:45 | Inpatient (IN) | payer OTHER, SELFPAY ==
[2025-05-03] VITALS (35 sets, daily range): BP systolic 127–172; BP diastolic 94–145; BMI 21.3
[2025-05-03 07:06] LABS: Hematocrit 45.3 % (39.0-52.0); Hemoglobin 15.2 g/dL (13.0-18.0); Mean Corp Hgb Conc. 33.6 g/dL (33.0-37.0); Mean Corpuscular Volume 87.8 fL (80.0-94.0); Nucleated Red Blood Cells % 0 % (-); Platelet Count 219 10^3/uL (130-400); Red Cell Dist. Width 13.6 % (11.5-14.5)
[2025-05-03 07:17] LABS: INR 1.31; PT 16.6 Sec (11.4-14.6)
[2025-05-03 07:18] LABS: APTT 30.0 Sec (23.4-35.0)
[2025-05-03] MEDS: TRANDATE 10 MG IV (07:22)
[2025-05-03 07:31] LABS: ALT (SGPT) 48 U/L (0-50); AST (SGOT) 38 U/L (17-59); Albumin 4.0 g/dl (3.5-5.0); Alkaline Phosphatase 79 U/L (38-126); Blood Urea Nitrogen 33 mg/dl (9-20); Calcium 8.7 mg/dl (8.4-10.2); Carbon Dioxide 24 mmol/L (22-30); Chloride 109 mmol/L (98-107); Estimated Creatinine Clearance 62 ml/min; Glucose 109 mg/dl (70-99); Magnesium 2.2 mg/dl (1.6-2.3); Potassium 4.3 mmol/L (3.5-5.1); Sodium 140 mmol/L (135-145); Total Protein 6.6 g/dl (6.3-8.2); eGFR > 60.00
[2025-05-03 07:47] LABS: Troponin I 0.094 ng/ml
[2025-05-03] MEDS: TRANDATE 20 MG IV (09:03)
--- NOTE | 2025-05-03 09:20 | ED.GENMED ---
History of Present Illness
General
Chief Complaint: Cardiac Symptoms
Source: patient
Time Seen by Provider: 05/03/25 06:49
History of Present Illness
History of Present Illness:
Note:
CHIEF COMPLAINT(S)
The patient presented with chest pain radiating to the right shoulder, jaw, and occasionally to the back. He reports a history of atrial fibrillation (AFib).
HISTORY OF PRESENT ILLNESS
The patient is a 54-year-old male with a history of atrial fibrillation. He previously visited the emergency department two weeks ago for AFib, which could not be cardioverted due to a thrombus in the atrium. He was scheduled for a follow-up
appointment on May 19. The patient reports persistent cardiac symptoms and unusual pain in his right shoulder, radiating to the head and jaw, which began on Sunday. He feels this pain when inhaling deeply and describes it as pressure in
the neck and shoulder, resembling his previous experiences when his blood pressure was elevated.
He also reports significant difficulty sleeping due to symptoms and has a past episode of similar sensations indicating high blood pressure. During his prior hospitalization, he was instructed to allow blood thinners time to work before another
intervention could be planned.
The patient was on medications including Entresto, Jardiance, spironolactone, and apixaban (Eliquis). He mentions possibly triggering his symptoms with metoprolol and amlodipine, which he subsequently tapered. He experiences a slow resting heart
rate due to being athletic, complicating medication management. A potential pacemaker was discussed in the past but was deferred after an ablation, which has not fully resolved his symptoms.
The patient reports persistent uncontrolled hypertension, with home and hospital monitors often presenting high readings. Current blood pressure was 159 over 127. He experiences edema in the lower extremities, particularly noticeable after wearing
socks.
PAST MEDICAL AND SURIGICAL HISTORY
The patient has a significant history of atrial fibrillation and has undergone ablation in the past.
EXTERNAL RECORDS REVIEWED
A Computed Tomography (CT) scan was performed during his recent hospital visit for pulmonary embolism evaluation.
CHRONIC MEDICAL CONDITIONS SIGNIFICANTLY AFFECTING CARE
The patients atrial fibrillation and uncontrolled hypertension are ongoing concerns that significantly influence his current care.
SOCIAL DETERMINANTS AFFECTING HEALTH
The patient reports being a smoker. There is an absence of alcohol use despite social settings, and he denies drug use.
MEDICATIONS
Currently taking Entresto, Jardiance, spironolactone, and apixaban (Eliquis). He was prescribed metoprolol and amlodipine but has self-modified these medications due to adverse reactions.
REVIEW OF SYSTEMS
- Cardiovascular: Reports of chest pain radiating to the shoulder and neck, persistent AFib, concerns with uncontrolled hypertension.
- Respiratory: Pain associated with inhalation.
- Musculoskeletal: Pain radiating to the right shoulder and back.
- Neurological: Experiences excess pressure in the head and occasionally in the neck.
PHYSICAL EXAM
General: Alert, no acute distress.
Skin: Warm, dry.
Head: Normocephalic, atraumatic.
Neck: Supple, trachea midline.
Eye, Ears, Nose, Mouth, and Throat: Oral mucosa moist.
Cardiovascular: Irregularly irregular heart rate at 103 bpm, blood pressure at 172 over 127, trace bilateral lower extremity edema noted.
Respiratory: Respirations are non-labored.
Gastrointestinal: Abdomen nondistended.
Back: Normal range of motion, normal alignment.
Musculoskeletal: Normal ROM, normal strength.
Neurological: Alert and oriented to person, place, time, and situation, no focal neurological deficit observed.
Psychiatric: Cooperative, appropriate mood & affect.
PLAN
- Administer intravenous labetalol to manage high blood pressure and heart rate.
- Review CT scan results to rule out aortic dissection or other significant pathologies.
- Monitor blood pressure and heart rate closely, considering manual blood pressure checks for accuracy.
DIFFERENTIAL DIAGNOSIS
The Differential Diagnosis includes, in no particular order and is not limited to:
1. Aortic dissection
2. Myocardial infarction
3. Pulmonary embolism
4. Hypertensive crisis
5. Anxiety disorder
6. Pericarditis
7. Costochondritis
8. Musculoskeletal pain
9. Gastroesophageal reflux disease (GERD)
10. Cervical radiculopathy
CARE-UPDATE
05/03/25 - 09:38
Patient remains hypertensive with BP 139/119 despite two doses of labetalol. Consider evaluating the effectiveness of the current antihypertensive regimen and discussing potential adjustments. Additional investigations or alternative medication may
be warranted if elevated blood pressure persists.
CARE-UPDATE
05/03/25 - :52
Patient reports feeling better but still experiencing elevated blood pressure, most recently measured at 143/105 mmHg. Manual readings appear more accurate and slightly lower when taken in primary care or cardiology settings, suggesting possible
measurement variation rather than white coat syndrome. Patient expresses discomfort with current blood pressure levels but denies feeling at immediate risk. Plan to monitor the patient overnight to prevent further elevation, potentially using a rate
and blood pressure control drip.
Recent imaging ruled out dissection or tear, and the patients pain has subsided. Troponin levels have decreased since the last visit, although they remain slightly elevated; additional testing planned to monitor trend. Discussion suggests patients
pain could be musculoskeletal, possibly due to physical strain or concurrent severe hypertension.
Patient reports previous episodes of elevated blood pressure coinciding with feelings of tension or tightness, possibly due to hypertension itself. Patient noticed a reduction in physical activity due to prior clotting issues and identifies
instances of physical strain that might have contributed to symptoms. Sleep has been disrupted, primarily due to shortness of breath and AFib, with the patient familiar with managing AFib symptoms since 2019.
Plan to observe patient through the day with a possible discharge tomorrow, contingent upon better blood pressure management. Increase fluid intake as discussed.
EKG
My independent EKG interpretation is:
- Rhythm: Atrial fibrillation with rapid ventricular response (RVR)
- [place]: Left axis deviation
- Abnormalities: Left ventricular hypertrophy (LVH) with non-specific ST-T wave changes
Disposition:
SUMMARY OF ENCOUNTER
A 54-year-old male with a history of atrial fibrillation and atrial clotting presented with back and neck pain accompanied by a feeling of tightness. He has been experiencing persistent atrial fibrillation and is awaiting a delayed cardioversion due
to the presence of a clot. The patient has reported not feeling well on metoprolol and has intermittently withheld doses. On presentation, he was found to be significantly hypertensive and required multiple doses of intravenous labetalol. Given his
condition, he is being admitted for close blood pressure monitoring and continuation of antihypertensive therapy, with the potential for a labetalol drip if symptoms persist.
DISPOSITION
Admit
ASSESSMENT
The patients hypertension and symptoms of pain are likely due to his underlying cardiovascular conditions, including atrial fibrillation and possibly related to the atrial clot. His medications, particularly metoprolol, may have contributed to his
symptoms and non-compliance.
EMERGENCY TREATMENTS ADMINISTERED
Intravenous labetalol was administered to manage hypertension.
PLAN
- Admit for close monitoring of blood pressure.
- Continue antihypertensive therapy as needed.
- Consider a labetalol drip if blood pressure remains uncontrolled.
- Prepare for potential delayed cardioversion dependent on clot resolution.
MEDICATION RECONCILIATION
Intravenous labetalol was administered in the emergency department for hypertension management.
MEDICAL DECISION MAKING
Number and Complexity of Problems Addressed: Chronic conditions affecting care include atrial fibrillation and uncontrolled hypertension.
Data:
Category 1:
- External records review of patients medical history indicating atrial fibrillation and atrial clot.
- My independent interpretation of prior EKG showed atrial fibrillation with a rapid ventricular response.
Category 3: Discussion of patients care management including consideration of admission for close monitoring with potential implementation of labetalol drip.
Risk: Escalation of care to admission level due to patients significant hypertension and potential for complications if untreated.
DIAGNOSIS
1. Uncontrolled hypertension (ICD-10: I10)
2. Atrial fibrillation with rapid ventricular response (ICD-10: I48.0)
Past History
Past History
ED Past Medical History: HTN
ED Past Surgical History: None
Social History
Tobacco: Non-smoker
Phy Exam
Physical Exam
Physical Exam:
.
Course
Orders/Labs/Results
Orders:
Orders
05/03/25 06:09
ECG [Electrocardiogram (*1)] Urgent
Reason for Study: Atrial Fibrillation
EKG- Treatment ONCE
05/03/25 06:57
Complete Blood Count/With Diff Urgent
Comprehensive Metabolic Panel Urgent
Magnesium Urgent
NT-proBNP Urgent
Troponin I Urgent
05/03/25 06:58
PT/INR [Prothrombin Time] Urgent
PTT Urgent
05/03/25 07:06
Ct Chest/Abd/Pel Angio W/Wo Iv Urgent
Reason For Exam: chest pain, back pain, severe HTN
05/03/25 07:07
Labetalol HCl [Trandate] 10 mg IV NOW STA
05/03/25 08:50
Labetalol HCl [Trandate] 20 mg IV NOW STA
05/03/25 09:56
Labetalol [Trandate] 200 mg PO NOW STA
Abnormal Lab Results
05/03/25 05/03/25
06:57 06:58
MPV 10.7 H fL
(7.4-10.4)
Lymphocytes % 19.0 L %
(20.5-51.1)
PT 16.6 H Sec
(11.4-14.6)
Chloride 109 H mmol/L
(98-107)
BUN 33 H mg/dl
(9-20)
Glucose 109 H mg/dl
(70-99)
Troponin I 0.094 H* ng/ml
05/03/25 06:57
05/03/25 06:57
Vital Signs
Initial and Last Documented VS:
Initial Vital Signs
Temp Pulse Resp BP Pulse Ox
97.8 F 60 26 154/120 98
05/03/25 06:10 05/03/25 06:10 05/03/25 06:10 05/03/25 06:10 05/03/25 06:10
Last Documented Vital Signs
Temp Pulse Resp BP Pulse Ox
98.1 F 92 12 143/118 98
05/03/25 07:02 05/03/25 09:03 05/03/25 07:32 05/03/25 09:03 05/03/25 07:32
*Pulse Oximetry
SaO2: 98
Oxygen Mode of Delivery: Room air
Patient hypoxic: no
*Critical Care Note
Total Time (30-74mins, 75-104mins- exclusive of procedures): 35 minutes
ED Attending Note
-
Portions of this chart may have been created with voice recognition software.� Occasional wrong word or��sound alike� substitutions may have occurred due to the inherent limitations of voice recognition software.
Discharge Plan
Departure
Patient Disposition: Admit
Date of Disposition: 05/03/25
Time of Disposition: 09:57
Admit to: Telemetry
Presentation/result/management discussed w/ accepting MD/DO: Hospitalist
Discharge Problem:
Hypertensive urgency, Atrial fibrillation with rapid ventricular response
Prescriptions:
No Action
Eliquis 5 mg Tablet
5 mg PO BID Qty: 60 0RF
Jardiance 10 mg Tablet
10 mg PO DAILY Qty: 30 0RF
sacubitril-valsartan [Entresto] 97-103 mg Tablet
1 tab PO BID Qty: 60 2RF
amlodipine 2.5 mg Tablet
2.5 mg PO DAILY
furosemide [Lasix] 40 mg tablet
40 mg PO DAILY PRN (Reason: swelling/wt gain > 2lb in 24hr)
spironolactone 25 mg tablet
50 mg PO DAILY
metoprolol succinate 50 mg tablet extended release 24 hr
50 mg PO BID Qty: 60 1RF
Referrals:
Reyes Shabazz MD [Family Provider, Internal Medicine]
Interventions
Interventions:
*Risk Screen - Suicide Last Done: 05/03/25 06:10
*General Assessment Last Done: 05/03/25 07:02
*Neglect/Abuse Screening Last Done: 05/03/25 06:10
*ED- Fall Risk Assessment Last Done: 05/03/25 07:02
*ED COVID-19 Vaccine History Last Done: 05/03/25 07:02
ED- Cardiac Assessment Last Done: 05/03/25 07:02
ED- Pulmonary Assessment Last Done: 05/03/25 07:02
Discharge Date and Time
Print Language: SINHALA
--- NOTE | 2025-05-03 11:15 | HPS.HSE ---
Family Physician
-
Family Physician: Reyes Shabazz MD
Chief Complaint
-
sluggish, chest and back pain
History of Present Illness
Patient is a 54-year-old male with a history of paroxysmal atrial fibrillation who has had 3 cardioversions and an ablation in the past, cardiomyopathy (actually heart failure with reduced ejection fraction of 30 to 35%) with 'clot in his heart',
multidrug resistant hypertension who was recently admitted from April 21 to April 22 for atrial fibrillation with rapid ventricular response. He was supposed to have a cardioversion at that time but RACIEL demonstrated left atrial thrombus and
he was continued on Eliquis.
Patient presents today with complaints of pain in his right shoulder, right neck, right back starting yesterday with elevated blood pressures and feeling extremely sluggish. He states that he can tell when he is in A-fib because he does not feel
well. EKG here shows atrial fibrillation with rapid ventricular response and the patient has received multiple doses of IV labetalol. While this has improved his heart rate, his blood pressure still remains markedly elevated (on admission was
154/120, currently 148/122). CT scan of his chest abdomen and pelvis does not show aortic dissection. Patient states that he does not like the way metoprolol makes him feel, nor amlodipine. It is unclear whether or not patient has decreased these
medications on his own or at the discretion of his telecommunications technician. Patient is being admitted.
Medical History
Past Medical History
Past Medical History: Reports Other
Additional Past Medical History:
Paroxysmal atrial fibrillation status post ablation and 3 cardioversions
heart failure with reduced ejection fraction (30 to 35%)
Multidrug resistant hypertension
Obstructive sleep apnea
Benign prostatic hyperplasia
Past Surgical History: Reports None
Social History
Tobacco: Non-smoker
Alcohol: None
Drug: None
Family History
Family History: Other (Father had an enlarged heart)
Allergies / Home Medications
Allergies reflects when Allergies were last updated in [facility].
Home Medications with original date entered in [facility]
Allergy/Medication List:
Allergies
Allergy/AdvReac Type Severity Reaction Status Date / Time
No Known Allergies Allergy Verified 05/03/25 06:13
Home Medications
apixaban 5 mg tablet (Eliquis) 5 mg PO BID #60 tabs 03/05/23
empagliflozin 10 mg tablet (Jardiance) 10 mg PO DAILY #30 tabs 03/05/23
sacubitril 97 mg-valsartan 103 mg tablet (Entresto) 1 tab PO BID Heart disease/condition #60 tabs 10/22/24
amlodipine 2.5 mg tablet 2.5 mg PO DAILY Blood Pressure 04/21/25
furosemide 40 mg tablet (Lasix) 40 mg PO DAILY PRN swelling/wt gain > 2lb in 24hr 04/21/25
spironolactone 25 mg tablet 50 mg PO DAILY Heart Failure 04/21/25
metoprolol succinate 50 mg tablet,extended release 24 hr 50 mg PO BID #60 tabs 04/22/25
Review of Systems
-
History Source: Patient
A 12 point ROS was completed and negative except as noted: Yes
Constitutional: Reports Fatigue (Sluggishness)
EENT: Reports No Symptoms
Respiratory: Reports Trouble Breathing
Cardiac: Reports Chest Pain (Chest pain, back pain, right shoulder pain) and Palpitations
Abdomen/GI: Reports Nausea; Denies Abdominal Pain, Vomiting, Diarrhea or Constipated
: Reports No Symptoms
Musculoskeletal: Reports Edema (He said trace edema that he attributes to his amlodipine)
Skin: Reports No Symptoms
Neurological: Reports No Symptoms
Endocrine: Reports No Symptoms
Hematologic/Lymphatic: Reports No Symptoms
Psych: Reports No Symptoms
Physical Exam
Vital Signs
Vital Signs
Temp Pulse Resp BP Pulse Ox
98.1 F 88 20 148/122 97
05/03/25 07:02 05/03/25 10:48 05/03/25 10:48 05/03/25 10:48 05/03/25 10:48
Physical Exam
General: Well Developed, Well Nourished and No Apparent Distress
HEENT: NormoCephalic, Anicteric and Atraumatic
Respiratory: Crackles (left base)
Cardiac: Irregular Rhythm (with periods of tachycardia)
GI: Soft, Non Tender, Non Distended and Normal Bowel Sounds
Musculoskeletal: No Clubbing, No Cyanosis and No Edema
Skin: Warm
Neuro: Awake
Psych: Calm
Laboratory Results
-
05/03/25 06:57
05/03/25 06:57
Laboratory Results
PT 16.6 Sec (11.4-14.6) H 05/03/25 06:58
INR 1.31 05/03/25 06:58
APTT 30.0 Sec (23.4-35.0) 05/03/25 06:58
Total Bilirubin 1.2 mg/dl (0.2-1.3) 05/03/25 06:57
AST 38 U/L (17-59) 05/03/25 06:57
ALT 48 U/L (0-50) 05/03/25 06:57
Alkaline Phosphatase 79 U/L (38-126) 05/03/25 06:57
Troponin I 0.094 ng/ml H* 05/03/25 06:57
Impression/Plan
-
pt is a 54 year old male
Paroxysmal atrial fibrillation with rapid ventricular response--patient uncomfortable and states he can feel when he is in A-fib--he was scheduled to have RACIEL with cardioversion 2 weeks ago but unfortunately he was noted to have a left atrial
thrombus and has been faithfully taking his Eliquis since--unfortunately, he has not been taking his metoprolol as religiously and it is unclear if the dose was decreased by the patient himself or by his telecommunications technician (follows with Dr. Will)--ADMIT
to IVU--patient's heart rate has improved with IV labetalol, will stop metoprolol for now and consider using Cardizem for rate control--consult cardiology--patient may need repeat RACIEL with cardioversion if clot has dissolved
Multidrug-resistant hypertension --IV labetalol has not reduced the patient's blood pressure--he has some crackles on exam with proBNP of 6900--will continue spironolactone and give 1 dose of IV Lasix--apparently, metoprolol and amlodipine did not
agree with the patient--Will add IV hydralazine for now--continue Entresto--check renal artery ultrasound
Heart failure with reduced ejection fraction with mild exacerbation--IV Lasix--consider continuing while inpatient--continue David Martel, Entresto--echo ordered--consult cardiology
Obstructive sleep apnea--unclear if patient uses CPAP
Benign prostatic hyperplasia--noted
DVT prophylaxis--Eliquis
CODE STATUS--full code
[2025-05-03] MEDS: LASIX 40 MG IV (12:30)
--- NOTE | 2025-05-03 12:43 | CON.CAR ---
Addendum entered and electronically signed by Sal Tompkins MD 05/03/25 14:04:
I saw and evaluated the patient, and I provided the substantive portion of the medical decision making.
I reviewed and agree with the note by DR De Leon and it accurately reflects our care.
I personally performed the medical decision making of the this encounter and my assessment and plan is below:
AF: stopped taking metop --> Restart metoprolol
HFrEF 30-35%: restart GDMT Entresto, Jardiance, spironolactone and metop
HTN: as aboave
Monitor tele
Anticipate likely d/c tomorrow
Original Note:
Consultation
Consultation Request
Date/Time Consultation Requested: 05/03/2025, 1109
Date/Time Consultation Performed: 05/03/2025, 13 00
Requesting Provider: Dr. Sagrario Tong
Performing Provider: Dr. Tompkins, Dr. De Leon
Reason for Consultation: A-fib with RVR
Medical History
-
Chief Complaint: Chest discomfort, dyspnea, lightheadedness
History of Present Illness:
54-year-old male with paroxysmal A-fib, s/p cardioversion X3, ablation, heart failure with reduced ejection fraction 30-35%, multidrug resistant hypertension, MCKINLEY, obstructive sleep apnea, BPH presented to the ER reporting dyspnea, lightheadedness,
nausea, orthopnea since the past couple of days. Patient was admitted on April 21 for A-fib with RVR, supposed to have a cardioversion but the plan was discontinued as he had left atrial appendage thrombus. He was discharged home on Eliquis.
Patient has been taking all his medications consistently after discharge except for metoprolol. He saw Dr. Will a week ago, patient reports that he feels weird with metoprolol and his dose was reduced to 25 mg twice daily. Patient states that he
did not take his metoprolol dose in the past 3 days. He is scheduled for follow-up appointment on May 19 to plan for cardioversion after RACIEL. In ER at presentation his blood pressure at 172/145, heart rate in 110s, CBC unremarkable, renal
function BUN�33, creatinine�1.2. EKG�A-fib with RVR. CT chest�no evidence of aortic dissection.
Cardiology consulted for further management.
Past Medical History
Past Medical History: Other (A-fib, hypertension, HFrEF, MCKINLEY, BPH)
Social History
Tobacco: Non-Smoker
Alcohol: None
Drug: None
Allergies / Home Medications
Allergy/AdvReac Type Severity Reaction Status Date / Time
No Known Allergies Allergy Verified 05/03/25 06:13
�Medication �Instructions �Recorded �Confirmed �Type
apixaban 5 mg tablet (Eliquis) 5 mg PO BID #60 tabs 03/05/23 05/03/25 Rx
empagliflozin 10 mg tablet 10 mg PO DAILY #30 tabs 03/05/23 05/03/25 Rx
(Jardiance)
sacubitril 97 mg-valsartan 103 mg 1 tab PO BID Heart 10/22/24 05/03/25 Rx
tablet (Entresto) disease/condition #60 tabs
amlodipine 2.5 mg tablet 2.5 mg PO DAILY Blood Pressure 04/21/25 05/03/25 History
furosemide 40 mg tablet (Lasix) 40 mg PO DAILY PRN swelling/wt 04/21/25 05/03/25 History
gain > 2lb in 24hr
spironolactone 25 mg tablet 50 mg PO DAILY Heart Failure 04/21/25 05/03/25 History
metoprolol succinate 50 mg 50 mg PO BID #60 tabs 04/22/25 05/03/25 Rx
tablet,extended release 24 hr
Review of Systems
-
All other systems: Negative unless noted
Physical Exam
Vital Signs
Temp Pulse Resp BP Pulse Ox
98.1 F 99 20 136/124 97
05/03/25 07:02 05/03/25 12:30 05/03/25 10:48 05/03/25 12:30 05/03/25 10:48
Lab Results
05/03/25 06:57
05/03/25 06:57
Troponin I 0.094 ng/ml H* 05/03/25 06:57
Zln-K-Vsxdyrmkjmd Pept 6900 pg/ml 05/03/25 06:57
Physical Exam
General: No Apparent Distress
HEENT: Normocephalic
Respiratory: Clear
Cardiac: S1/S2, Irregular Rhythm and Other (Tachycardic); Negative Peripheral Edema
GI: Soft, Non Tender, Non Distended and Normal Bowel Sounds
Skin: Warm and Dry
Neuro: Awake, Alert, Oriented and AO x 3
Impression / Plan
-
Impression
54-year-old male with paroxysmal A-fib, HFrEF, multidrug-resistant hypertension presented to the ER with shortness of breath and chest discomfort. Patient is in A-fib with RVR.
Plan
#Atrial fibrillation with RVR
Patient is noncompliant with his home medication of metoprolol, skipped his metoprolol in the past 3 days.
RACIEL on 04/21/2025 with left atrial appendage thrombus, scheduled for relook/cardioversion on May 19.
Heart rate in 100s
Patient is still symptomatic
S/p 3 doses of labetalol
Patient is not a candidate for amiodarone , diltiazem (HFrEF)
Will restart his metoprolol 50 mg twice daily
Continue Eliquis 5 mg twice daily
Continue telemetry
#Elevated troponins
Troponins at 0.094 at admission
Likely nonischemic, due to tachycardia mediated cardiomyopathy
Trend troponins
#Heart failure with reduced ejection fraction
BNP elevated at 6900
Recent echo with ejection fraction of 30-35%
Patient does not appear volume overloaded
S/p IV Lasix 40 mg
Restart GDMT�Entresto, spironolactone, metoprolol, Jardiance
Update echo
Monitor weights, I/os, electrolytes.
Reviewed ECW, was seen by Dr. Lopez on 01/15/2025, who discussed about vericiguat/dual-chamber ICD.
#Essential hypertension
Multidrug-resistant
Reviewed ECW, was seen by Dr. Lopez on 01/15/2025
His Aldactone dose increased to 50 mg, was also started on amlodipine.
Continue metoprolol, Entresto, spironolactone, Jardiance, amlodipine
Rest of his chronic medical condition management per the primary team.
[2025-05-03] MEDS: APRESOLINE 5 MG IV ×2 (14:17→22:44)
--- NOTE | 2025-05-03 14:50 | EDRN ---
this RN called the receiving unit and notify them that paper report was going to be tubed up
--- NOTE | 2025-05-03 16:27 | PTCARENOTE ---
patient arrived to floor via stretcher, reports 3/10 in right jaw radiating down neck into right shoulder blade, denies need for analgesia, independent, b/p 146/104, will continue to monitor.
[2025-05-03] MEDS: LASIX 20 MG IV (16:52)
--- NOTE | 2025-05-03 17:35 | PTCARENOTE ---
per patient he was not feeling well with dose of Lopressor of 50mgs bid at discharge and verbalized that cardiology changed it to 25mgs po bid I andrew texted DR. Tong. She informed me that's why he went into afib, he needs to take appropriate
dose of 50mgs bid and Dr. Tompkins agrees, will continue to monitor.
[2025-05-03 18:17] LABS: Troponin I 0.069 ng/ml
[2025-05-03] MEDS: ELIQUIS 5 MG PO (20:10)
[2025-05-03] MEDS: ENTRESTO 97 MG/103 MG 1 TAB PO (20:11)
[2025-05-03 21:37] LABS: Troponin I 0.067 ng/ml
[2025-05-03] MEDS: TYLENOL 650 MG PO (22:47)
[2025-05-03] MEDS: TOPROL XL 50 MG PO (23:51)
[2025-05-04 01:20] VITALS: BP 130/86
[2025-05-04 03:08] VITALS: BP 134/94
[2025-05-04 06:00] VITALS: BMI 21.0
[2025-05-04 07:37] VITALS: BP 144/100
[2025-05-04] MEDS: ELIQUIS 5 MG PO (08:27)
[2025-05-04] MEDS: ENTRESTO 97 MG/103 MG 1 TAB PO (08:27)
[2025-05-04] MEDS: FARXIGA 10 MG PO (08:28)
[2025-05-04] MEDS: ALDACTONE 50 MG PO (08:28)
[2025-05-04] MEDS: LASIX 20 MG IV (08:29)
--- NOTE | 2025-05-04 09:14 | W.PN.CD ---
Today's Communication / Plan
-
Increase metoprolol ER to 100 mg a day
OK for home on meds as ordered
Impression / Plan
-
Background 54-year-old male with paroxysmal A-fib, HFrEF, multidrug-resistant hypertension presented to the ER with shortness of breath and chest discomfort. Patient is in A-fib with RVR.
Atrial fibrillation with RVR
- Persistent, not taking meds as prescribed
- RACIEL on 04/21/2025 with left atrial appendage thrombus, scheduled for relook/cardioversion on May 19
- He is considering a second ablation
Elevated troponin from a nonischemic myocardial injury from fast afib
Chronic HFrEF
- BNP elevated at 6900
- Recent echo with ejection fraction of 30-35%
- Looks compensated
- Restarted GDMT�Entresto, spironolactone, metoprolol, Jardiance
- Once in sinus on max meds LVEF can be rechecked to see if ICD appropriate
HTN
- Resistance may well be from non-adherence Multidrug-resistant
- Watch as meds are administered
Subjective: Feels well. Echo cancelled as he just had echo
RACIEL 04/21/2025:
SUMMARY
1. Left ventricular ejection fraction is moderately reduced.
2. Right ventricular systolic function is mildly decreased.
3. Ejection fraction is 30-35% by visual assesment.
4. Thrombus is noted in the left atrial appendage.
5. Aortic sinuses are mildly dilated.
6. Compared to the prior on 10/21/2024, there is now evidence of thrombus in the left atrial appendage.
From my office note 01/15/2025:
1.HFrEF (heart failure with reduced ejection fraction) -I50.20 (Primary)2.Persistent atrial fibrillation - I48.1 3.Chronic anticoagulation - Z79.014.Essential (primary) hypertension - I105.Status post catheter ablation of atrial fibrillation -
Z98.890�Specify :�AFib ablation, Jul 24, 2022.6.Left atrial enlargement - I51.77.History of cardioversion - Z92.89�Specify :�Last cardioversion October 2024
-
HFrEF: Continue current medical regimen. Increase Aldactone for better blood pressure control. Will consider adding Verquvo. If the LVEF stays low, I would recommend a dual-chamber ICD and then up-titration of carvedilol. Given his young age, I will
refer him downtown for advanced heart failure evaluation when I see him in follow-up.
Poorly controlled HTN: I will add amlodipine and increase Aldactone. I counseled him that he needs a BMP in 2 and 4 weeks.
Recurrent atrial fibrillation: Continue Eliquis. He will be a good candidate for second ablation. His QTc suggest that only amiodarone will be acceptable if he needs an antiarrhythmic medication.
Sinus bradycardia limiting beta-ellen use: See comments above.
cc: Tomasz Will MD
Physical Exam
Vital Signs/Labs
Vital Signs
Temp Pulse Resp BP Pulse Ox
97.8 F 80 18 144/100 98
05/04/25 07:37 05/04/25 08:27 05/04/25 07:37 05/04/25 08:27 05/04/25 07:37
05/03/25 05/04/25 05/05/25
06:59 06:59 06:59
Actual Weight 62.652 kg
PT 16.6 Sec (11.4-14.6) H 05/03/25 06:58
INR 1.31 05/03/25 06:58
APTT 30.0 Sec (23.4-35.0) 05/03/25 06:58
Magnesium 2.2 mg/dl (1.6-2.3) 05/03/25 06:57
05/03/25
06:57
Ibb-A-Pdrpdgohzku Pept 6900
LAB Results
05/03/25 05/03/25 05/03/25
06:57 17:29 18:54
Troponin I 0.094 H* 0.069 H* Cancelled
05/03/25 05/03/25
20:36 21:02
Troponin I Cancelled 0.067 H*
Physical Exam
Constitutional: No acute distress
Cardiovascular: Rhythm/rate is irregular
Respiratory: Respiratory effort normal and Lungs clear to auscul.
GI: Soft
Data Reviewed
-
Date of Service: May 04, 2025
[2025-05-04 09:31] LABS: Hematocrit 47.4 % (39.0-52.0); Hemoglobin 16.0 g/dL (13.0-18.0); Mean Corp Hgb Conc. 33.8 g/dL (33.0-37.0); Mean Corpuscular Volume 88.6 fL (80.0-94.0); Platelet Count 220 10^3/uL (130-400); Red Cell Dist. Width 13.6 % (11.5-14.5)
[2025-05-04 09:34] LABS: ALT (SGPT) 44 U/L (0-50); AST (SGOT) 30 U/L (17-59); Albumin 3.8 g/dl (3.5-5.0); Alkaline Phosphatase 79 U/L (38-126); Blood Urea Nitrogen 27 mg/dl (9-20); Calcium 9.0 mg/dl (8.4-10.2); Carbon Dioxide 30 mmol/L (22-30); Chloride 105 mmol/L (98-107); Estimated Creatinine Clearance 61 ml/min; Glucose 106 mg/dl (70-99); HDL Cholesterol 46 mg/dl; LDL Cholesterol, Calculated 107 mg/dl; Potassium 3.7 mmol/L (3.5-5.1); Sodium 140 mmol/L (135-145); Total Protein 6.4 g/dl (6.3-8.2); Very Low Density Lipoprotein 15 mg/dl (0-30); eGFR > 60.00
[2025-05-04 09:56] LABS: Glycohemoglobin (HgbA1c) 5.7 % (4.0-5.6)
[2025-05-04 11:30] VITALS: BP 145/105
[2025-05-04] MEDS: TOPROL XL 100 MG PO (11:46)
--- NOTE | 2025-05-04 12:43 | W.DCSUMMARY ---
Discharge Summary
Discharge Data
Date of Admission: 05/03/25
Date of Discharge: 05/04/25
Total time spent discharging patient (in min): 40
-
Pending Results: No
Hospital Course
Hospital course
54-year-old male with paroxysmal A-fib, s/p cardioversion X3, ablation, heart failure with reduced ejection fraction 30-35%, multidrug resistant hypertension, MCKINLEY, obstructive sleep apnea, BPH presented to the ER reporting dyspnea, lightheadedness,
nausea, orthopnea since the past couple of days, found to have A-fib with RVR, seen by cardiology.
Cardiology recommending to increase metoprolol to succinate to 100 mg daily and a change Lasix to be once daily not as needed, hold amlodipine for now.
Patient seen and examined at bedside, denies any chest pain or shortness of breath, no abdominal pain, no nausea, no vomiting, no diarrhea or constipation.
Patient scheduled to come back for cardioversion on May 19, also consult with EP for ablation on June 03, 2025.
Physical exam:
GENERAL : Patient is awake, alert, oriented x3
HEENT: Nonicteric sclerae, PERRLA, EOMI. Oropharynx clear. Moist mucous membranes. Conjunctivae appear well perfused.
CHEST: Chest wall is nontender.
HEART: Irregular rate and rhythm without murmurs.
LUNGS: Clear to auscultation bilaterally.
ABDOMEN: Soft, positive bowel sounds, nontender, no organomegaly.
RECTAL: Deferred.
SKIN: No rash, no excessive bruising, petechiae, or purpura.
NEUROLOGIC: Cranial nerves II-XII intact without motor/sensory deficit.
Total time spent on today's encounter was 40 minutes which included time spent in counseling the patient/family regarding diagnosis and treatment plan as listed above, goals of care, and symptom management. Case was discussed with nursing staff,
specialists, and care coordinators/case management. All labs and imaging personally reviewed by me. Remainder the time spent in detailed review of previous records, lab data, imaging, and other medical provider documentation.
Anticipated Discharge: Today
Discharge Plan
-
Patient Disposition: Home (Routine Discharge)
Discharge Diagnosis/Procedures: A-fib with RVR
Hypertension
Heart failure with reduced ejection fraction
Obstructive sleep
Diet: Low Cholesterol and Low Sodium
Activity: As tolerated
Referrals:
[facility] Cardioversion at [facility] [Other] - 05/19/25
Reyes Shabazz MD [Family Provider, Internal Medicine]
Nikos White MD [Active, Cardiology] - 06/03/25
Referral Note: Ablation consult
Asaf Lopez MD [Active, Cardiology] - 07/15/25
Prescriptions:
New
metoprolol succinate 100 mg Tablet Extended Release 24 Hr
100 mg PO DAILY Qty: 30 0RF
Continued
Jardiance 10 mg Tablet
10 mg PO DAILY Qty: 30 0RF
spironolactone 25 mg tablet
50 mg PO DAILY
Eliquis 5 mg tablet
5 mg PO BID@1200,0000
sacubitril-valsartan [Entresto] 97-103 mg tablet
1 tab PO BID@1200,0000
Changed
furosemide [Lasix] 40 mg tablet
40 mg PO DAILY Qty: 0 0RF
Held
amlodipine 2.5 mg Tablet
2.5 mg PO DAILY
Hold Instructions: Hold until seen by cardiology
Discontinued
metoprolol succinate 50 mg tablet extended release 24 hr
25 mg PO BID@1200,0000
Rx Instructions:
reports cardiology decreased dose
Discharge Orders:
Discharge Patient (As Directed); Ordered 05/04/25
Ordered By: Mason Armijo
Discharge Date and Time
Print Language: [place]
[2025-05-04 13:08] VITALS: BMI 21.0
[2025-05-04 13:20] VITALS: BP 136/99
--- NOTE | 2025-05-04 14:50 | CM ---
CM met with Mr. Harmon to review discharge plans. He states he is feeling better and feels ready to go home.
Prior to admission he was living alone in a second floor walk-up apartment; full flight of stairs to enter. He reports being independent with ambulation and adls. No DME.
PCP: Jose Shabazz
Pharm: [facility]
Plan: Discharge to home with no identified needs.
== END 2025-05-04 14:38 | disposition home or self-care (01) | DRG 308 ==
LOC: 3 WEST ACU 11:45
PROVIDERS: ADMITTING PHYSICIAN Internal Medicine; ATTENDING PHYSICIAN General Practice; CONSULT PHYSICIAN Internal Medicine Cardiovascular Disease; EMERGENCY PHYSICIAN Emergency Medicine; FAMILY PHYSICIAN Internal Medicine
DX: I48.0 Paroxysmal atrial fibrillation (principal); I50.33 Acute on chronic diastolic (congestive) heart failure; I5A Non-ischemic myocardial injury (non-traumatic); I11.0 Hypertensive heart disease with heart failure; F17.200 Nicotine dependence, unspecified, uncomplicated; I16.0 Hypertensive urgency; I1A.0 Resistant hypertension; G47.33 Obstructive sleep apnea (adult) (pediatric); N40.0 Benign prostatic hyperplasia without lower urinary tract symptoms; I51.3 Intracardiac thrombosis, not elsewhere classified; Z79.01 Long term (current) use of anticoagulants; Z79.84 Long term (current) use of oral hypoglycemic drugs; Z91.148 Patient's other noncompliance with medication regimen for other reason
CPT/HCPCS: 71275; 74174; 80053; 80061; 83036; 83735; 83880; 84484; 85025; 85027; 85610; 85730; 93005; 93975; 96374; 96375; 96376; 99291; Q9967

== ENCOUNTER 2025-05-09 13:15 | Inpatient (IN) | payer OTHER, SELFPAY ==
[2025-05-09] VITALS (15 sets, daily range): BP systolic 122–160; BP diastolic 72–127; BMI 22.2; BMI 21.1
--- NOTE | 2025-05-09 09:10 | EDRN ---
Casie IQBAL in room w/ pt at this time.
--- NOTE | 2025-05-09 09:18 | ED.GENMED ---
History of Present Illness
<Gabbi Lewis PA-C - Last Filed: 05/09/25 18:13>
General
Chief Complaint: Heart Rate Problem
Source: patient
Exam Limitations: none
Time Seen by Provider: 05/09/25 08:59
Nursing documentation reviewed up to this point in time: agreed with
History of Present Illness
History of Present Illness:
54-year-old male with history atrial fibrillation on Eliquis, CHF, hypertension who presents to the emergency department with concerns of chest tightness and exertional shortness of breath. Patient recently discharged from hospital on Sunday. He
has been having ongoing cardiac symptoms related to symptomatic atrial fibrillation however was found to have an atrial thrombus on TONI and unable to have cardioversion performed at this time.
Patient states that over the past 4 days since discharge he has been progressively feeling more 'unwell'. He describes a chest tightness as well as significant exertional shortness of breath having difficulty even walking down the hallway.
He started to experience significant nausea which he attributes to his metoprolol and was instructed to discontinue by his web development intern on Sunday. Last night he had his first dose of atenolol 25 mg.
Patient denies any fever or productive cough. No tearing back pain. No significant lower extremity edema. No weight gain, he actually states he has lost weight
Patient does report compliance with medications.
Patient's primary web development intern Dr. Will through [place] however has slowly been transitioning over to [facility] cardiology group.
Past History
<Gabbi Lewis PA-C - Last Filed: 05/09/25 18:13>
Past History
ED Past Medical History: HTN
ED Past Surgical History: None
Social History
Tobacco: Non-smoker
Review of Systems
<Gabbi Lewis PA-C - Last Filed: 05/09/25 18:13>
Review of Systems
Allergies reviewed?: Yes
All Other Systems: ROS reviewed and negative except as documented in HPI and ROS
Phy Exam
<Gabbi Lewis PA-C - Last Filed: 05/09/25 18:13>
Physical Exam
Physical Exam:
Vitals: Hypertensive, tachycardic
General: Patient appears in no distress per
Skin: Warm and dry, no rashes or lesions
Head: Normocephalic, atraumatic
Eyes: Sclera nonicteric. EOMs intact. No nystagmus.
Throat: Protecting airway
Neck: Normal ROM, no cervical spine tenderness, no meningismus. No JVD
Cardiac: Tachycardic, irregularly irregular rhythm, no murmurs.
Pulm: Normal respiratory effort. Faint crackles bilaterally.
Abdomen: Nondistended. Abdomen soft.
Extremities: No pitting edema of lower extremities. No cyanosis
Neuro: AAOx3. No focal deficits.
Psychiatric: Normal affect.
Course
<Gabbi Lewis PA-C - Last Filed: 05/09/25 18:13>
Orders/Labs/Results
Orders:
Orders
05/09/25 08:18
Electrocardiogram (*1) Urgent
Reason for Study: Atrial Fibrillation
EKG- Treatment ONCE
05/09/25 09:18
CR Chest - 2 Views Urgent
Comment:
Reason For Exam: CP, SOB
05/09/25 09:37
Complete Blood Count/With Diff Urgent
Comprehensive Metabolic Panel Urgent
Magnesium Urgent
NT-proBNP Urgent
Troponin I Urgent
05/09/25 Lunch
Sodium, 2 Gram
At Your Request: Full Participation
05/09/25 10:31
Furosemide [Lasix] 40 mg IV NOW STA
05/09/25 12:39
Admit/Transfer Patient As Directed
Co-Sign Provider:
Level of Care: Inpatient admission
Assign to:: Telemetry
Physician / Group: hospitalist
Diagnosis: a fib with RVR
Reason for Telemetry: Medication for Arrhythmia
Date to Stop Telemetry: 05/11/25
Time to Stop Telemetry: 11:00
Reason for Hospitalization: symptomatic a fib with RVR
Expected length of stay greater than two midnights?: Yes
ELOS- Estimated Length of Stay in days: 3
I certify the patient meets the requirements for IP care: Yes
PRN Pain Medication Management As Directed
May give lesser potent ordered pain med per pt: Yes
preference::
Protocol:: Medication orders for pain may be administered in a
manner that supports deferring to patient preference
when the pt is:
- Requesting an ordered lesser potent pain medication.
Least to most potent pain medications are defined
as: acetaminophen < NSAID < tramadol < opioids
(morphine, oxycodone, hydromorphone).
- Requesting a lesser dose of the same medication IF
ORDERED.
- Requesting a less intrusive route of administration
if both routes are prescribed by the provider (PO <
IV).
05/09/25 12:41
Code Status As Directed
Resuscitation Status: Full Code
05/09/25 14:08
Troponin I Q6H
Acetaminophen [Tylenol] 650 mg PO Q4HPRN PRN
Bisacodyl [Dulcolax] 10 mg RECTAL [id number] PRN
Docusate W/Senna [Senokot-S] 1 tablet PO BIDPRN PRN
Polyethylene Glycol Powder [Miralax] 17 grams PO DAILYPRN PRN
05/09/25 14:08
Echo Toni W/echo Doppler (#17) Routine
Reason for Study: HFrEF, a fib w RVR w thrombus
CARDIOLOGY CONSULT Routine
Consulting Provider: Soto Soliman
Was physician already notified: Yes
Activity As Directed
Activity Level: Out of Bed-Early Mobility
Intake/ Output As Directed
Frequency: Per unit guidelines
Vital Signs As Directed
Frequency: Per unit guidelines
Weight As Directed
Frequency: Daily
Cpap [RESP] Routine
Patient to use own unit?: Yes
05/09/25 20:00
Carvedilol [Coreg] 3.125 mg PO BID
05/09/25 20:08
Troponin I Q6H
05/10/25 00:00
Apixaban [Eliquis] 5 mg PO BID@1200,0000
Sacubitril 97/Valsartan 103 [Entresto 97 mg/103 mg] 1 tab PO BID@1200,0000
05/10/25 02:08
Troponin I Q6H
05/10/25 06:00
Complete Blood Count/With Diff IN AM
Comprehensive Metabolic Panel IN AM
Magnesium IN AM
NT-proBNP IN AM
05/10/25 08:00
Dapagliflozin [Farxiga] 10 mg PO DAILY
Furosemide [Lasix] 40 mg PO DAILY
Spironolactone [Aldactone] 50 mg PO DAILY
05/11/25 11:00
DC Protocol for Telemetry ONCE
DC Protocol for Telemetry ONCE
Abnormal Lab Results
05/09/25
09:37
MPV 11.0 H fL
(7.4-10.4)
Absolute Lymphs (auto) 1.0 L 10^3/uL
(1.2-3.4)
Neutrophils % 79.2 H %
(42.2-75.2)
Lymphocytes % 14.2 L %
(20.5-51.1)
BUN 36 H mg/dl
(9-20)
Glucose 131 H mg/dl
(70-99)
Total Bilirubin 1.8 H mg/dl
(0.2-1.3)
Troponin I 0.098 H* ng/ml
05/09/25 09:37
05/09/25 09:37
Vital Signs
Initial and Last Documented VS:
Initial Vital Signs
Temp Pulse Resp BP Pulse Ox
98.1 F 65 16 150/117 98
05/09/25 08:18 05/09/25 08:18 05/09/25 08:18 05/09/25 08:18 05/09/25 08:18
Last Documented Vital Signs
Temp Pulse Resp BP Pulse Ox
97.8 F 120 16 146/82 99
05/09/25 15:00 05/09/25 14:24 05/09/25 15:00 05/09/25 14:38 05/09/25 15:39
<Sammy Ugalde MD - Last Filed: 05/09/25 09:59>
Orders/Labs/Results
Orders:
Orders
05/09/25 08:18
Electrocardiogram (*1) Urgent
Reason for Study: Atrial Fibrillation
EKG- Treatment ONCE
05/09/25 09:18
CR Chest - 2 Views Urgent
Comment:
Reason For Exam: CP, SOB
05/09/25 09:37
Complete Blood Count/With Diff Urgent
Comprehensive Metabolic Panel Urgent
Magnesium Urgent
NT-proBNP Urgent
Troponin I Urgent
05/09/25 Lunch
Sodium, 2 Gram
At Your Request: Full Participation
05/09/25 10:31
Furosemide [Lasix] 40 mg IV NOW STA
05/09/25 12:39
Admit/Transfer Patient As Directed
Co-Sign Provider:
Level of Care: Inpatient admission
Assign to:: Telemetry
Physician / Group: hospitalist
Diagnosis: a fib with RVR
Reason for Telemetry: Medication for Arrhythmia
Date to Stop Telemetry: 05/11/25
Time to Stop Telemetry: 11:00
Reason for Hospitalization: symptomatic a fib with RVR
Expected length of stay greater than two midnights?: Yes
ELOS- Estimated Length of Stay in days: 3
I certify the patient meets the requirements for IP care: Yes
PRN Pain Medication Management As Directed
May give lesser potent ordered pain med per pt: Yes
preference::
Protocol:: Medication orders for pain may be administered in a
manner that supports deferring to patient preference
when the pt is:
- Requesting an ordered lesser potent pain medication.
Least to most potent pain medications are defined
as: acetaminophen < NSAID < tramadol < opioids
(morphine, oxycodone, hydromorphone).
- Requesting a lesser dose of the same medication IF
ORDERED.
- Requesting a less intrusive route of administration
if both routes are prescribed by the provider (PO <
IV).
05/09/25 12:41
Code Status As Directed
Resuscitation Status: Full Code
05/09/25 14:08
Troponin I Q6H
Acetaminophen [Tylenol] 650 mg PO Q4HPRN PRN
Bisacodyl [Dulcolax] 10 mg RECTAL [id number] PRN
Docusate W/Senna [Senokot-S] 1 tablet PO BIDPRN PRN
Polyethylene Glycol Powder [Miralax] 17 grams PO DAILYPRN PRN
05/09/25 14:08
Echo Toni W/echo Doppler (#17) Routine
Reason for Study: HFrEF, a fib w RVR w thrombus
CARDIOLOGY CONSULT Routine
Consulting Provider: Soto Soliman
Was physician already notified: Yes
Activity As Directed
Activity Level: Out of Bed-Early Mobility
Intake/ Output As Directed
Frequency: Per unit guidelines
Vital Signs As Directed
Frequency: Per unit guidelines
Weight As Directed
Frequency: Daily
Cpap [RESP] Routine
Patient to use own unit?: Yes
05/09/25 20:00
Carvedilol [Coreg] 3.125 mg PO BID
05/09/25 20:08
Troponin I Q6H
05/10/25 00:00
Apixaban [Eliquis] 5 mg PO BID@1200,0000
Sacubitril 97/Valsartan 103 [Entresto 97 mg/103 mg] 1 tab PO BID@1200,0000
05/10/25 02:08
Troponin I Q6H
05/10/25 06:00
Complete Blood Count/With Diff IN AM
Comprehensive Metabolic Panel IN AM
Magnesium IN AM
NT-proBNP IN AM
05/10/25 08:00
Dapagliflozin [Farxiga] 10 mg PO DAILY
Furosemide [Lasix] 40 mg PO DAILY
Spironolactone [Aldactone] 50 mg PO DAILY
05/11/25 11:00
DC Protocol for Telemetry ONCE
DC Protocol for Telemetry ONCE
Abnormal Lab Results
05/09/25
09:37
MPV 11.0 H fL
(7.4-10.4)
Absolute Lymphs (auto) 1.0 L 10^3/uL
(1.2-3.4)
Neutrophils % 79.2 H %
(42.2-75.2)
Lymphocytes % 14.2 L %
(20.5-51.1)
BUN 36 H mg/dl
(9-20)
Glucose 131 H mg/dl
(70-99)
Total Bilirubin 1.8 H mg/dl
(0.2-1.3)
Troponin I 0.098 H* ng/ml
05/09/25 09:37
05/09/25 09:37
Vital Signs
Initial and Last Documented VS:
Initial Vital Signs
Temp Pulse Resp BP Pulse Ox
98.1 F 65 16 150/117 98
05/09/25 08:18 05/09/25 08:18 05/09/25 08:18 05/09/25 08:18 05/09/25 08:18
Last Documented Vital Signs
Temp Pulse Resp BP Pulse Ox
97.8 F 120 16 146/82 99
05/09/25 15:00 05/09/25 14:24 05/09/25 15:00 05/09/25 14:38 05/09/25 15:39
<Gabbi Lewis PA-C - Last Filed: 05/09/25 18:13>
MDM/Problems Addressed
Differential Diagnosis Includes:
Not limited to: Symptomatic atrial fibrillation, hypertensive emergency, CHF exacerbation, ACS, less likely PE or aortic dissection, asked
MDM/Problems Addressed:
54 year old male presenting with symptomatic atrial fibrillation with progressively worsening exertional dyspnea and chest tightness. Recent admission for similar symptoms with known atrial clot and planned repeat TONI/cardioversion on 05/19/2025.
Patient has been taking Eliquis as prescribed. Patient significantly hypertensive on arrival with heart rate ranging from 80s�120s. Physical exam as above.
Differential includes suspected symptomatic atrial fibrillation however possible component of CHF or ACS. Patient had recent dissection study without any evidence o dissection or pulmonary embolism. He has been compliant with Eliquis, feel PE much
less likely.
ED plan: Labs, cardiac enzymes, proBNP, chest x-ray. Patient will need cardiology evaluation.
Update: [place] chemistry [place] [address] with troponin elevated to 0.098 which I suspect to be likely demand ischemia. Chest x-ray reveals top normal pulmonary vasculature with mild cardiomegaly. Patient remains
hypertensive and symptomatic. At this point�suspect symptoms multifactorial from symptomatic atrial fibrillation as well as component of CHF. Will plan to admit patient, sheree with Lasix pending further cardiology evaluation. Patient accepted
to hospitalist service in stable condition. Cardiology aware.
Chronic conditions affecting care:
Atrial fibrillation, CHF, hypertension
Acute Exacerbation and/or Progression of Chronic Illness:
Acutely hypertensive, atrial fibrillation with rapid ventricular response
<Gabbi Lewis PA-C - Last Filed: 05/09/25 18:13>
*Radiology
Radiology exam reviewed: radiology read reviewed
*Pulse Oximetry
SaO2: 98
Oxygen Mode of Delivery: Room air
Patient hypoxic: no
*EKG
Interpreted by ED Provider?: Yes
EKG Intrepretation Date: 05/09/25
Interpretation: abnormal
Comparison EKG: changes noted
Heart Rate: 112
Rate: tachycardiac
Rhythm: a-fib
Interval: long QT
QRS Pattern: normal QRS
Ischemia: non-specific ST changes
*Patient Accounts Specialist Interpretation
Rate: tachycardiac
Interpretation: abnormal
Heart Rate: 112
Rhythm: a-fib
*Critical Care Note
Total Time (30-74mins, 75-104mins- exclusive of procedures): Not Applicable
Data Reviewed
Review of Other/Old Records Reveals: Discharge Summary (Discharge summary from 05/04/2025)
<Gabbi Lewis PA-C - Last Filed: 05/09/25 18:13>
Patient Management
Discussion with other providers: Hospitalist
Escalation/DeEscalation of care consider admission/obs:
Admit for further management of symptomatic atrial fibrillation, CHF
ED Attending Note
<Gabbi Lewis PA-C - Last Filed: 05/09/25 18:13>
-
Portions of this chart may have been created with voice recognition software.� Occasional wrong word or��sound alike� substitutions may have occurred due to the inherent limitations of voice recognition software.
<Sammy Ugalde MD - Last Filed: 05/09/25 09:59>
ED Attending Note
Patient seen and examined by attending physician: Yes
I performed the substantive portion of visit, reviewed & personally made and approve the management plan that is documented in note by myself or LISY.: Yes
ED Attending Note:
Patient returns with ongoing ill feeling symptoms including shortness of breath shortness of breath with exertion episodes of nausea especially overnight. Episodes of chest tightness. This has been an ongoing issue. Recently in atrial
fibrillation but found to have atrial thrombus. Currently anticoagulated pending hopeful cardioversion in the near future. Clean coronaries in 2022. Global hypokinesia.
On exam patient is nontoxic. Pleasant. Elevated blood pressure. Heart rate will vary between 90 and 130.
Irregular irregular. No murmur.
No respiratory distress at rest. A few very few dry crackles in the bases.
Trace edema.
Warm and dry. Perfusing well.
Grossly normal neurologic exam
Previous records reviewed. Cardiac cath 2022 clean coronaries. Atrial fibrillation RVR. Possible component of CHF. Workup in progress for other additional etiology other than the A-fib RVR. Will need cardiology evaluation.
Discharge Plan
Departure
Patient Disposition: Admit
Date of Disposition: 05/09/25
Time of Disposition: 10:31
Presentation/result/management discussed w/ accepting MD/DO: Hospitalist
Discharge Problem:
Atrial fibrillation with rapid ventricular response, CHF (congestive heart failure)
Interventions
Interventions:
*Risk Screen - Suicide Last Done: 05/09/25 14:14
*General Assessment Last Done: 05/09/25 09:46
*Neglect/Abuse Screening Last Done: 05/09/25 09:46
*ED- Fall Risk Assessment Last Done: 05/09/25 09:46
*ED COVID-19 Vaccine History Last Done: 05/09/25 14:14
*Nursing Disposition Last Done: 05/09/25 14:10
ED- Cardiac Assessment Last Done: 05/09/25 09:46
ED- Pulmonary Assessment Last Done: 05/09/25 09:46
Discharge Date and Time
Discharge Date/Time: 05/09/25 14:10
--- NOTE | 2025-05-09 09:45 | EDRN ---
Dr. Ugalde in room w/ pt at this time.
[2025-05-09 09:49] LABS: Hematocrit 46.1 % (39.0-52.0); Hemoglobin 15.4 g/dL (13.0-18.0); Mean Corp Hgb Conc. 33.4 g/dL (33.0-37.0); Mean Corpuscular Volume 89.5 fL (80.0-94.0); Nucleated Red Blood Cells % 0 % (-); Platelet Count 219 10^3/uL (130-400); Red Cell Dist. Width 13.7 % (11.5-14.5)
--- NOTE | 2025-05-09 09:50 | EDRN ---
Dr. Ugalde in room w/ pt.
--- NOTE | 2025-05-09 09:51 | EDRN ---
Pt states he has been in A Fib sing 04/14 and was unable to get cardioversion r/t a clot. Pt is presently scheduled for a procedure on 05/19 for his A Fib.
[2025-05-09 10:08] LABS: ALT (SGPT) 43 U/L (0-50); AST (SGOT) 32 U/L (17-59); Albumin 3.7 g/dl (3.5-5.0); Alkaline Phosphatase 75 U/L (38-126); Blood Urea Nitrogen 36 mg/dl (9-20); Calcium 9.4 mg/dl (8.4-10.2); Carbon Dioxide 26 mmol/L (22-30); Chloride 104 mmol/L (98-107); Estimated Creatinine Clearance 59 ml/min; Glucose 131 mg/dl (70-99); Magnesium 2.3 mg/dl (1.6-2.3); Potassium 4.6 mmol/L (3.5-5.1); Sodium 137 mmol/L (135-145); Total Protein 6.3 g/dl (6.3-8.2); eGFR > 60.00
[2025-05-09 10:23] LABS: Troponin I 0.098 ng/ml
--- NOTE | 2025-05-09 10:23 | EDRN ---
Critical value trop 0.098 reported to [facility].
[2025-05-09] MEDS: LASIX 40 MG IV ×2 (11:17→13:46)
--- NOTE | 2025-05-09 11:34 | HPS.HSE ---
Family Physician
-
Family Physician: Reyes Shabazz MD
Chief Complaint
-
SOB, symptomatic a fib
History of Present Illness
Patient is a 54yo M with a pmh notable for nonischemic cardiomyopathy w HFrEF (30-35%), symptomatic afib w RVR, multidrug resistant HTN, & MCKINLEY who p/w worsening exertional dyspnea after being discharged on 05/04 for a fib with RVR.
The patient was admitted twice this month for symptomatic A-fib with RVR and dyspnea. He was last discharged on 05/04, at which point his as needed home Lasix was converted to daily 40 mg Lasix, and he was started on 100 mg metoprolol daily. He was
continued on his home Eliquis, Jardiance, Entresto, and spironolactone; his amlodipine was stopped. He had a follow-up appointment scheduled for 05/19 for cardioversion (patient with known RA thrombus, awaiting breakdown with anticoagulation). He
also had a consultation appointment scheduled for 06/03 for discussion of repeat ablation. He has been cardioverted x3 in the past for his A-fib, and he is s/p ablation in July 2022. He has a prior history of atrial clot on RACIEL in September 2024,
and successful cardioversion was done after a second RACIEL in October 2024 showed no atrial thrombus. RACIEL on 04/21/25: LVEF 30-35%, new thrombus in L atrial appendage as compared to October.
After being discharged on 05/04, the patient experienced nausea with the metoprolol. His siebel administrator at [facility] converted this to atenolol, which he attempted to take. He only took 1-2 doses and also experienced nausea and vomiting. Yesterday,
he threw up and felt worsening dyspnea on exertion. Was very out of breath just walking on flat ground across parking lot. Denies any missed Eliquis doses or missed doses of his other home medications. He monitors his blood pressure at home daily
and says that it has been ranging in the 140s�150s systolic. He denies any significant CHANDRA, but states that he thinks his right LE is slightly swollen compared to baseline. Also endorses minimal orthopnea. Has been planning for repeat sleep study
to evaluate his MCKINLEY. 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 He began to first experience A-fib in the
fall 2018.
On presentation to the ED today (05/09), the patient was tachycardic (102) and dyspneic. Blood pressure ranging in the 130s�160s systolic. Respiratory rate 22. Satting 95% on room air. Afebrile. Troponin elevated to 0.098. Pro BNP at 15,600.
EKG demonstrated A-fib with RVR, prolonged QTc at 529. CXR was unremarkable, demonstrating cardiomegaly. Patient was given 40 mg IV furosemide.
On exam, patient was able to speak comfortably on room air from a sitting position in bed without dyspnea. No complaints of pain or lightheadedness.
Medical History
Past Medical History
Past Medical History: Reports Arrhythmia, CHF and HTN
Past Surgical History: Reports None
Social History
Tobacco: Non-smoker
Alcohol: None
Living: Alone
Family History
Family History: Other (Father with CHF)
Allergies / Home Medications
Allergies reflects when Allergies were last updated in [facility].
Home Medications with original date entered in [facility]
Allergy/Medication List:
NKDA
Review of Systems
-
History Source: Patient
Constitutional: Reports See HPI
Respiratory: Reports See HPI
Cardiac: Reports See HPI
Musculoskeletal: Reports See HPI
Psych: Reports See HPI
Physical Exam
Vital Signs
Vital Signs
Temp Pulse Resp BP Pulse Ox
98.1 F 116 20 133/119 96
05/09/25 08:18 05/09/25 11:17 05/09/25 10:56 05/09/25 11:17 05/09/25 11:00
Physical Exam
General: Well Developed, Well Nourished and Conversant
HEENT: NormoCephalic, Anicteric and Atraumatic
Respiratory: Clear
Cardiac: Irregular Rhythm and Tachycardia
GI: Non Distended
Musculoskeletal: Other (extremely minimal RLEE to ankle, none on LLE)
Skin: Warm and Dry
Neuro: Awake, Alert and Oriented
Psych: Calm
Laboratory Results
-
05/09/25 09:37
05/09/25 09:37
Laboratory Results
Total Bilirubin 1.8 mg/dl (0.2-1.3) H 05/09/25 09:37
AST 32 U/L (17-59) 05/09/25 09:37
ALT 43 U/L (0-50) 05/09/25 09:37
Alkaline Phosphatase 75 U/L (38-126) 05/09/25 09:37
Troponin I 0.098 ng/ml H* 05/09/25 09:37
Data Reviewed
-
Critical Care Time (in minutes): 45
Diagnostic Radiology: Report Reviewed by me
Lab Data: Labs Reviewed by me
Impression/Plan
-
Jose Angel Harmon is a 54yo M with a pmh notable for nonischemic cardiomyopathy w HFrEF (30-35%), symptomatic afib w RVR, multidrug resistant HTN, & MCKINLEY who p/w worsening exertional dyspnea after being discharged on 05/04 for a fib with RVR, now w
persistent symptomatic afib w RVR.
#Symptomatic A-fib with RVR
Patient with 2 admissions this month for A-fib with RVR; last discharged on 05/04. With last ablation in July 2022. With last cardioversion in October 2024, after resolution of thrombus. New left atrial thrombus identified on 04/21/25, with
planning for repeat cardioversion on 05/19. Also planning for repeat ablation, with consult appointment scheduled for 06/03. However, patient with significant worsening GRAF on 05/08 led to re-presentation to ED. EKG with A-fib with RVR and
prolonged QTc.
- Discontinue metoprolol
- Start carvedilol 3.25 mg twice daily
- Give another 40 mg IV Lasix today
- Continue standing daily 40 mg Lasix p.o.
- Continue home Entresto, spironolactone, Jardiance
- Continue home Eliquis 5 mg twice daily
- Repeat RACIEL to eval for changes in EF, thrombus
- Cardiology consulted, appreciate recs
- Plan for repeat ablation outpatient
#Nonischemic cardiomyopathy, HFrEF (30-35% EF)
#Potential mild exacerbation potential for mild HFrEF exacerbation in the setting of
Patient with RACIEL on 04/21/2025 demonstrating LVEF of 30-35%. Patient has been on GDMT for HF. Follows with Dr. Will at [facility]. Symptomatic A-fib with RVR, due to patient noting mild increase in RLEE, orthopnea, GRAF. However, on exam patient
does not appear volume overloaded.
- Continue with home medications as above
- Monitor daily weights, I's and O's
- Cardiology consulted, appreciate recs
#Multidrug resistant HTN
Patient with BPs ranging systolic 130-160 this admission. Per patient and his typical home BPs systolic ranged from 140-150. Has documented diagnosis of multidrug resistant HTN. Not experiencing hypertensive symptoms.
- Outpatient workup for underlying etiology
- Carvedilol trial as above
- Continue to monitor BP and patient
#Elevated troponin
Troponin levels elevated on admission. Likely secondary to demand ischemia.
Trope: 0.098
- Continue to trend troponin, monitor for peak
#MCKINLEY
Patient with diagnosis of MCKINLEY, discussed need for repeat sleep study soon.
- Nightly CPAP
- Outpatient repeat sleep study
#Global
- DVT PPx: Eliquis 5 mg twice daily
- Diet: Low-sodium
- Code: Full
- Dispo: To home, pending improved rate control
--- NOTE | 2025-05-09 11:59 | W.PN.UPDATE ---
Update Note
Progress Note Update
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 He was recently discharged from the hospital this
past Sunday with symptomatic atrial fibrillation, found to have atrial thrombus on RACIEL at that time and anticipated cardioversion was postponed. Over the 4 days since his discharge he describes worsening symptoms, exacerbated by exertional
activity. Denies any fever, coughing, edema. Currently follows with [facility] that was been transitioning to [facility]. Reports compliance to his home medications. On arrival was tachycardic in AF with HR as high as 116/min,
otherwise hemodynamically stable and on room air. Labs with BUN 36, T. bili 1.8, troponin 0.098, BNP 15,600. ECG showed AF with RVR, marked ST downsloping depressions in V4 through 6, QTc 529 ms. Chest x-ray showed mild cardiomegaly and pulmonary
vascularity with signs of congestion. Started on Lasix 40 mg IV in the ED
AAO x 4, NAD. Tachycardic with irregularly irregular rhythm, no murmur or gallop, normal S1 and 2. Lungs clear bilaterally, nonlabored. Benign abdomen. Trace LE edema, no JVD, palpable pulses, warm distal extremities. No focal neurologic
deficits.
#Acute on chronic HFrEF. Suspect tachycardia induced etiology. Home regimen includes GDMT with metoprolol succinate, Entresto, spironolactone, Jardiance. Currently on atenolol in place of metoprolol due to nausea. Home diuretic Lasix 40 mg
daily. Transitioned to IV Lasix 40 mg in the ED. Will order additional dose of IV Lasix 40 for this afternoon, trend BMP + I's and O's + daily weights. Monitor on telemetry. Continue current GDMT, though will transition from atenolol to
carvedilol 3.125 mg twice daily. Update TTE to assess for worsening LVEF with persistent tachycardia
#Persistent AF with RVR, TADEO thrombus. Recent RACIEL showed left atrial appendage thrombus. Home regimen includes Eliquis and atenolol. Will continue with Eliquis, transition from atenolol to carvedilol. Monitor neurologic status for signs of FND
with thrombus present. Monitor telemetry. Avoid nondihydropyridine calcium channel blockers due to reduced EF. Will need Ablation as OP. Consideration of digoxin per cardiology
#Elevated troponin. No history of obstructive CAD. ECG with downsloping ST changes in V4 through 6, initial troponin 0.098. Suspect type II demand ischemia with tachycardia and decompensated heart failure. Will continue to trend troponin with
serial ECG. Consider heparin drip if dynamic changes or significant troponin elevation present
#MDR-HTN. Workup for secondary etiologies limited as he is currently on MRA and ARB. Should have OP follow-up and consideration for ARR once off of these medications, as well as possible duplex ultrasound of the renal arteries. Will transition
from atenolol to carvedilol 3.125 mg twice daily as above
#QTc prolongation. QTc 529 ms. Unclear cause. Limits use of class III antiarrhythmic agents. Monitor on telemetry. Replete electrolytes for goal of K >4 and Mg >2
Diet -- Low cholesterol
DVT prophylaxis -- Home eliquis
CODE STATUS -- Full CODE
I have independently evaluated the patient at the bedside in the ED. I will be admitting Jose Angel Harmon to telemetry. He is at high risk for worsening morbidity due to decompensated heart failure and AF with RVR. He will require intensive
monitoring of his volume status and heart rate, as well as readjustment of his home diuretic regimen. I have discussed this case with the ED attending and the rn cvicu. I have reviewed this case with the resident and agree with all
documentation unless otherwise specified.
--- NOTE | 2025-05-09 12:09 | CON.CAR ---
Addendum entered and electronically signed by Soto Soliman MD 05/09/25 13:55:
I saw and examined the patient.
The NURSES SUPERVISOR's note was reviewed and I agree with the note.
54-year-old male with persistent atrial fibrillation,, left atrial thrombus heart failure reduced ejection fraction (EF 30 to 35%), multidrug hypertension, MCKINLEY who presents with shortness of breath. Patient recently discharged [facility] on
05/04/2025 with atrial fibrillation with rapid ventricular response. During admission metoprolol was increased from 25 top 100 and amlodipine discontinued. Patient reported that metoprolol really bothered his stomach and that he was changed to
atenolol and he took atenolol the other night it made him vomit. Patient states since Sunday he just has not been feeling as good he is short of breath sometimes at night and also short of breath with exertion. In general he just does not feel
great in A-fib. 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
this medication.
-
Shortness of breath. May be multifactorial. Patient may have component of acute on chronic heart failure secondary to A-fib, cardiomyopathy and hypertension. In addition I think some of his symptoms are related to symptomatic A-fib.
- Diuresis with IV Lasix monitor weights and renal function
- Rate control of A-fib.
- Eventual plans for conversion back to sinus rhythm but this will not be done until patient's been on consistent anticoagulation for a longer period of time and has a second RACILE.
.
A-fib. Rates in the low 100s at rest. Patient reported GI symptoms with metoprolol and atenolol. Trying to avoid calcium channel ellen with cardiomyopathy and heart failure. Sounds as if patient had been on Coreg in the past and does not
recall adverse reaction.
- Would use Coreg for additional rate control. Will start with low-dose and if tolerated can titrate
- If patient does not tolerate Coreg and additional rate control required then digoxin could be considered
- Continue anticoagulation with Eliquis
.
Left atrial appendage thrombus. Noted on echo 04/21/2025.
- Continue anticoagulation with Eliquis.
- Plan for repeat RACIEL 4 weeks after last RACIEL
.
Hypertension. Multidrug. Blood pressure control appears suboptimal but it is unclear if patient has taken all of his medications this morning.
- Continue to assess blood pressure on medical therapy
- Can titrate Coreg as tolerated
- Continue Entresto and spironolactone
Original Note:
Consultation
Consultation Request
Date/Time Consultation Requested: 05/09/2025 11:30
Date/Time Consultation Performed: 05/09/2025 11:45
Requesting Provider: Gabbi Lewis PA-C
Performing Provider: MADISON Thurman for Dr. Soliman
Reason for Consultation: Atrial fibrillation with rapid ventricular response
Medical History
-
Chief Complaint: Shortness of breath
History of Present Illness:
Jose Angel Harmon is a 54-year-old male with persistent atrial fibrillation (s/p cardioversion X3, ablation), heart failure with reduced ejection fraction (LVEF 30-35%), multidrug resistant hypertension, MCKINLEY, and BPH presented to the ER with shortness
of breath. He denies chest pain, dizziness, and syncope/presyncope. The patient had a recent admission with atrial fibrillation with right ventricular response. During that admission, his amlodipine 2.5 mg was stopped. His
metoprolol succinate was increased from 25 mg twice daily to 100 mg daily. Since he has been home, the metoprolol has been giving him an upset stomach. He did vomit 1 time. It was stopped and he was switched to atenolol. He has only taken 1 dose
but that is also giving him GI upset. He had a thrombus on TTE 04/21/2025. He is scheduled for a relook/cardioversion on 05/19/2025. He already has an outpatient appointment with EP to discuss a second ablation.
Past Medical History
Past Medical History: Arrhythmias (Persistent atrial fibrillation), CHF (HFrEF), HTN and Other (MCKINLEY)
Social History
Tobacco: Non-Smoker
Alcohol: None
Drug: None
Family History
Family History: Reviewed & Not Pertinent
Allergies / Home Medications
Allergy/AdvReac Type Severity Reaction Status Date / Time
No Known Allergies Allergy Verified 05/03/25 16:30
�Medication �Instructions �Recorded �Confirmed �Type
empagliflozin 10 mg tablet 10 mg PO DAILY #30 tabs 03/05/23 05/03/25 Rx
(Jardiance)
amlodipine 2.5 mg tablet 2.5 mg PO DAILY Blood Pressure 04/21/25 05/03/25 History
Held on 05/04/25.
Instructions: Hold until seen
by cardiology
spironolactone 25 mg tablet 50 mg PO DAILY Heart Failure 04/21/25 05/03/25 History
apixaban 5 mg tablet (Eliquis) 5 mg PO BID@1200,0000 Blood Clot 05/03/25 05/03/25 History
Prevention/Tx
sacubitril 97 mg-valsartan 103 mg 1 tab PO BID@1200,0000 Heart 05/03/25 05/03/25 History
tablet (Entresto) disease/condition
furosemide 40 mg tablet (Lasix) 40 mg PO DAILY #0 tabs 05/04/25 05/03/25 Rx
metoprolol succinate 100 mg 100 mg PO DAILY #30 tabs 05/04/25 Rx
tablet,extended release 24 hr
Review of Systems
-
History Source: Patient
Constitutional: Fatigue
EENT: No Symptoms
Respiratory: Trouble Breathing
Cardiac: No Symptoms
Abdomen/GI: No Symptoms
: No Symptoms
Musculoskeletal: No Symptoms
Skin: No Symptoms
Neurological: No Symptoms
Endocrine: No Symptoms
Hematologic/Lymphatic: No Symptoms
Physical Exam
Vital Signs
Temp Pulse Resp BP Pulse Ox
98.1 F 93 19 133/119 93
05/09/25 08:18 05/09/25 11:45 05/09/25 11:45 05/09/25 11:17 05/09/25 11:45
Lab Results
05/09/25 09:37
05/09/25 09:37
Troponin I 0.098 ng/ml H* 05/09/25 09:37
Wio-A-Ygokuqooffs Pept 75204 pg/ml 05/09/25 09:37
Physical Exam
General: Well Developed, Well Nourished and Comfortable
HEENT: Normocephalic, Anicteric and Moist Mucous Membranes
Respiratory: Clear and Non Labored Respirations
Cardiac: S1/S2 and Irregular Rhythm
Breast: Deferred by me
GI: Soft, Non Tender, Non Distended and Normal Bowel Sounds
Rectal: Deferred by Provider
Genito-urinary: No Costovertebral Tender
Musculoskeletal: No Clubbing and No Cyanosis
Skin: Warm and Dry
Neuro: AO x 3
Hematologic/Lymphatic: No Lymphadenopathy
Psych: Calm
Impression / Plan
-
I/P: 54M with persistent atrial fibrillation (prior cardioversions and ablation), chronic HFrEF, multidrug resistant hypertension, and MCKINLEY presented to the ER with shortness of breath.
Persistent atrial fibrillation
- Challenging to rate control given drug intolerances
- Status post ablation 07/2022, he is interested in repeat ablation and is not interested in long-term antiarrhythmic therapy
- Continue apixaban 5 mg twice daily
- [id number]: score 2 (Heart failure, HTN)
- Plan for RACIEL guided cardioversion 05/19/2025
TADEO thrombus, on apixaban
HFrEF (EF 30 to 35%), acute on chronic
- With worsening shortness of breath and an elevated proBNP compared to prior admission
- Recent discharge weight 62.6 kg, goal weight
- Diuresis with intravenous furosemide, this requires intensive monitoring
- GDMT as tolerated:
-BRENTON/ARB/ARNI: Sacubitril/valsartan 97-103 mg twice daily
-SGLT2 inhibitor: Jardiance 10 mg daily
-Aldosterone agonist: Spironolactone 50 mg daily
-Beta ellen: Did not tolerate metoprolol succinate or atenolol
-Isosorbide/Hydralazine:�Can consider
-ICD: Not currently indicated
- Trend daily weight, I/O, BMP with diuresis
Hypertension, multidrug resistant
- Trend with diuresis and changes to medical therapy
Abnormal troponin, nonischemic myocardial injury in the setting of atrial fibrillation with right ventricular response and acute on chronic HFrEF
- Denies chest pain
- Troponin 0.098, trend to peak
Prediabetes
MCKINLEY
DATA:
RACIEL, 04/21/2025:
SUMMARY
1. Left ventricular ejection fraction is moderately reduced.
2. Right ventricular systolic function is mildly decreased.
3. Ejection fraction is 30-35% by visual assessment.
4. Thrombus is noted in the left atrial appendage.
5. Aortic sinuses are mildly dilated.
6. Compared to the prior on 10/21/2024, there is now evidence of thrombus in the left atrial appendage.
Data Reviewed
-
EKG: Report Reviewed by me
Radiology: Report Reviewed by me
Medical Tests (Nuc Med, Echo etc): Report Reviewed by me
Labs: Labs Reviewed by me
Old Records: Reviewed
--- NOTE | 2025-05-09 12:42 | EDRN ---
Dr. Bee in room w/ pt.
--- NOTE | 2025-05-09 13:53 | EDRN ---
Christine from case management in room w/ pt at this time.
--- NOTE | 2025-05-09 14:00 | CM ---
CM reviewed chart and met with pt bedside in ED. Lives alone in second floor walk up apartment, [address]
Independent in ADLs, personal care and ambulation at baseline. No assistive device. No DME.
Confirms prescription coverage.
No hx VN or SNF.
PCP: Reyes Shabazz
Pharmacy: [facility]
Anticipate discharge home, no needs, CM will continue to follow for any discharge planning needs.
--- NOTE | 2025-05-09 15:18 | PTCARENOTE ---
Received pt from ED into room 406-2. Pt ambulatory to bed with no assistance. Pt denies dizziness/lightheadedness. AAOx3, all admission questions answered. On tele, Afib 100-130s. Automatic BP machine does not get accurate BPs, manual of 146/82 LUE.
Pt reports feeling poorly in general but no specific pain. Pt has no further complaints at this time. Oriented to room, call villalpando within reach.
[2025-05-09 19:01] LABS: Troponin I 0.085 ng/ml
[2025-05-09] MEDS: COREG 3.125 MG PO (19:32)
[2025-05-09] MEDS: BENADRYL 6.25 MG IV (23:15)
[2025-05-09] MEDS: FLUSH (NSS) 2 FLUSH IV (23:16)
[2025-05-09] MEDS: ELIQUIS 5 MG PO (23:20)
[2025-05-09] MEDS: ENTRESTO 97 MG/103 MG 1 TAB PO (23:21)
[2025-05-10] VITALS (7 sets, daily range): BP systolic 129–154; BP diastolic 95–114
[2025-05-10 00:58] LABS: Troponin I 0.095 ng/ml
[2025-05-10 07:17] LABS: Hematocrit 44.8 % (39.0-52.0); Hemoglobin 15.0 g/dL (13.0-18.0); Mean Corp Hgb Conc. 33.5 g/dL (33.0-37.0); Mean Corpuscular Volume 87.7 fL (80.0-94.0); Nucleated Red Blood Cells % 0 % (-); Platelet Count 226 10^3/uL (130-400); Red Cell Dist. Width 13.8 % (11.5-14.5)
[2025-05-10 07:39] LABS: ALT (SGPT) 41 U/L (0-50); AST (SGOT) 27 U/L (17-59); Albumin 3.4 g/dl (3.5-5.0); Alkaline Phosphatase 69 U/L (38-126); Blood Urea Nitrogen 43 mg/dl (9-20); Calcium 9.0 mg/dl (8.4-10.2); Carbon Dioxide 29 mmol/L (22-30); Chloride 102 mmol/L (98-107); Estimated Creatinine Clearance 49 ml/min; Glucose 103 mg/dl (70-99); Magnesium 2.2 mg/dl (1.6-2.3); Potassium 4.3 mmol/L (3.5-5.1); Sodium 135 mmol/L (135-145); Total Protein 5.9 g/dl (6.3-8.2); eGFR 54.30
--- NOTE | 2025-05-10 07:45 | W.PN.HOSP.TC ---
Today's Communication/Plan
-
- Carvedilol 6.25 mg twice daily
- Continue standing daily 40 mg Lasix p.o.
- Continue home Entresto, spironolactone, Jardiance (farxiga here)
- Continue home Eliquis 5 mg twice daily
- Repeat RACIEL to eval for changes in EF, thrombus - pending
- Cardiology consulted, appreciate recs
- Plan for repeat ablation outpatient
- Tigan PRN for nausea
Assessment / Plan
Assessment / Plan
Jose Angel Harmon is a 54yo M with a pmh notable for nonischemic cardiomyopathy w HFrEF (30-35%), symptomatic afib w RVR, multidrug resistant HTN, & MCKINLEY who p/w worsening exertional dyspnea after being discharged on 05/04 for a fib with RVR, now w
persistent symptomatic afib w RVR.
#Symptomatic A-fib with RVR
Patient with 2 admissions this month for A-fib with RVR; last discharged on 05/04. With last ablation in July 2022. With last cardioversion in October 2024, after resolution of thrombus. New left atrial thrombus identified on 04/21/25, with
planning for repeat cardioversion on 05/19. Also planning for repeat ablation, with consult appointment scheduled for 06/03. However, patient with significant worsening GRAF on 05/08 led to re-presentation to ED. EKG with A-fib with RVR and
prolonged QTc.
- Carvedilol 6.25 mg twice daily
- Continue standing daily 40 mg Lasix p.o.
- Continue home Entresto, spironolactone, Jardiance (farxiga here)
- Continue home Eliquis 5 mg twice daily
- Repeat RACIEL to eval for changes in EF, thrombus - pending
- Cardiology consulted, appreciate recs
- Plan for repeat ablation outpatient
- Per cards, plan for repeat RACIEL 4 weeks after last RACIEL (05/19)
#Nonischemic cardiomyopathy, HFrEF (30-35% EF)
#Potential mild exacerbation potential for mild HFrEF exacerbation in the setting of
Patient with RACIEL on 04/21/2025 demonstrating LVEF of 30-35%. Patient has been on GDMT for HF. Follows with Dr. Will at [place]. Symptomatic A-fib with RVR, due to patient noting mild increase in RLEE, orthopnea, GRAF. However, on exam patient
does not appear volume overloaded. At dry weight 63kg.
- Continue with home medications as above
- Monitor daily weights, I's and O's
- Cardiology consulted, appreciate recs
#Nausea
Patient endorsing nausea and vomiting associated with beta-blockers. Retched overnight 05/09 after receiving carvedilol.
- Start Tigan 200 mg 3 times daily as needed
#Multidrug resistant HTN
Patient with BPs ranging systolic 130-160 this admission. Per patient and his typical home BPs systolic ranged from 140-150. Has documented diagnosis of multidrug resistant HTN. Not experiencing hypertensive symptoms.
- Outpatient workup for underlying etiology
- Carvedilol trial as above
- Continue to monitor BP and patient
#Elevated troponin
Troponin levels elevated on admission. Likely secondary to demand ischemia.
Trope: 0.098>0.085>0.095
- Continue to trend troponin, monitor for peak
#MCKINLEY
Patient with diagnosis of MCKINLEY, discussed need for repeat sleep study soon.
- Nightly CPAP
- Outpatient repeat sleep study
#Global
- DVT PPx: Eliquis 5 mg twice daily
- Diet: Low-sodium
- Code: Full
- Dispo: To home, pending improved rate control
Anticipated Discharge: 24 - 48 hours
Subjective/Interval History
-
Date of Service: May 10, 2025
Patient states that he dry heaved yesterday evening. Just brought up some sputum. States that he was feeling nauseous but then was able to fall asleep after receiving a Benadryl. This morning, he ate his full breakfast without nausea/vomiting.
Stomach show still feels a little odd. States that he is unsure if he can lie completely flat, but when he woke up this morning he was lying nearly flat and was comfortable. Denies any sensation of chest palpitations. Feels that shortness of
breath is improved.
Objective Data
-
Labs:
Laboratory Results
05/10/25
06:55
WBC 7.1
Hgb 15.0
Hct 44.8
Plt Count 226
Sodium 135
Potassium 4.3
Chloride 102
Carbon Dioxide 29
BUN 43 H
Creatinine 1.5 H
Glucose 103 H
Calcium 9.0
Total Bilirubin 1.5 H
AST 27
ALT 41
Alkaline Phosphatase 69
Vital Signs:
Vital Signs
Temp Pulse Resp BP Pulse Ox
98.4 F 100 18 152/100 96
05/10/25 03:25 05/09/25 23:33 05/10/25 03:25 05/10/25 03:30 05/10/25 03:25
I&O
05/09/25 05/10/25 05/11/25
06:59 06:59 06:59
Intake Total 480 / 480 240 / 240
Output Total 1075 / 1075 275 / 275
Balance -595 / -595 -35 / -35
Review of Systems
-
History Source: Patient
Abdomen/GI: Reports Nausea and Vomiting
Physical Exam
-
General: No Apparent Distress and Comfortable
HEENT: Negative Oxygen
Respiratory: Clear to Auscultation and Non Labored Respirations
Cardiac: S1/S2 and Irregular Rhythm
GI: Soft, Nontender and Nondistended
Musculoskeletal: No Edema
Neuro: Awake, Alert, Oriented, No Motor Deficits and Nonfocal/Grossly Intact
Psych: Calm
Data Reviewed
-
Total Time Spent with Patient (in minutes): 15
Critical Care Time (in minutes): 35
Labs: Labs Reviewed by me
[2025-05-10 07:49] LABS: Troponin I 0.083 ng/ml
[2025-05-10] MEDS: COREG PO (08:52)
[2025-05-10] MEDS: FARXIGA 10 MG PO (08:57)
[2025-05-10] MEDS: ALDACTONE 50 MG PO (08:57)
[2025-05-10] MEDS: COREG 6.25 MG PO ×2 (08:57→20:49)
[2025-05-10] MEDS: LASIX 40 MG PO (08:57)
--- NOTE | 2025-05-10 10:52 | W.PN.CD ---
Today's Communication / Plan
-
Overall patient is feeling better. Appears to be tolerating Coreg would continue to titrate for additional heart rate and blood pressure control.
Creatinine mildly elevated continue to monitor with use of Lasix.
Plan will be to repeat RACIEL with possible cardioversion on 05/19/2025 this will be 4 weeks from his last RACIEL. However explained to the patient that there is going to need to be another rhythm control strategy and that if we just cardiovert him
without changes in treatment then he is likely to have recurrent A-fib. Last cardioversion was October or September of this year. Will ask EP/Dr. White to reassess regarding possible second ablation.
Impression / Plan
-
I/P: 54M with persistent atrial fibrillation (prior cardioversions and ablation), chronic HFrEF, multidrug resistant hypertension, and MCKINLEY presented to the ER with shortness of breath.
Persistent atrial fibrillation
- Challenging to rate control given drug intolerances. Continue to titrate Coreg
- Status post ablation 07/2022, he is interested in repeat ablation and is not interested in long-term antiarrhythmic therapy
- Continue apixaban 5 mg twice daily
- [id number]: score 2 (Heart failure, HTN)
- Plan will be to repeat RACIEL with possible cardioversion if no thrombus on 05/19/2025 this will be 4 weeks from his last RACIEL. However explained to the patient that there is going to need to be another rhythm control strategy and that if we just
cardiovert him without changes in treatment then he is likely to have recurrent A-fib. Last cardioversion was October or September of this year. Will ask EP/Dr. White to reassess regarding possible second ablation.
TADEO thrombus, on apixaban
HFrEF (EF 30 to 35%), acute on chronic
- Breathing feels better overnight. Can continue with diuretic but need to monitor renal function
- Recent discharge weight 62.6 kg, goal weight
- Diuresis with intravenous furosemide, this requires intensive monitoring
- GDMT as tolerated:
-BRENTON/ARB/ARNI: Sacubitril/valsartan 97-103 mg twice daily
-SGLT2 inhibitor: Jardiance 10 mg daily
-Aldosterone agonist: Spironolactone 50 mg daily
-Beta ellen: Did not tolerate metoprolol succinate or atenolol
-Isosorbide/Hydralazine:�Can consider
-ICD: Not currently indicated
- Trend daily weight, I/O, BMP with diuresis
Hypertension,. Suboptimal blood pressure control
- Titrate Coreg for additional blood pressure and heart rate control
- If additional medical therapy needed can add hydralazine
Abnormal troponin, nonischemic myocardial injury in the setting of atrial fibrillation with right ventricular response and acute on chronic HFrEF
- Denies chest pain
- Troponin 0.098, trend to peak
Prediabetes
MCKINLEY
DATA:
RACIEL, 04/21/2025:
SUMMARY
1. Left ventricular ejection fraction is moderately reduced.
2. Right ventricular systolic function is mildly decreased.
3. Ejection fraction is 30-35% by visual assessment.
4. Thrombus is noted in the left atrial appendage.
5. Aortic sinuses are mildly dilated.
6. Compared to the prior on 10/21/2024, there is now evidence of thrombus in the left atrial appendage.
Physical Exam
Vital Signs/Labs
Vital Signs
Temp Pulse Resp BP Pulse Ox
97.9 F 104 16 136/104 98
05/10/25 07:00 05/10/25 09:30 05/10/25 07:00 05/10/25 09:30 05/10/25 07:00
05/09/25 05/10/25 05/11/25
06:59 06:59 06:59
Actual Weight 63.078 kg
05/10/25 06:55
05/10/25 06:55
Magnesium 2.2 mg/dl (1.6-2.3) 05/10/25 06:55
05/09/25
09:37
Uby-Y-Uyqineqitdd Pept 13797
LAB Results
05/09/25 05/09/25 05/09/25
09:37 14:08 18:24
Troponin I 0.098 H* Cancelled 0.085 H*
05/09/25 05/10/25 05/10/25
20:08 00:20 06:55
Troponin I Cancelled 0.095 H* 0.083 H*
05/10/25
18:00
Troponin I Cancelled
Physical Exam
Constitutional: No acute distress and Other (Says he feels much better)
Cardiovascular: Rhythm/rate is irregular
Respiratory: Wheeze Absent and Rhonchi Absent
GI: Soft, Non tender and Normal bowel sounds
Neuro/Psych: Alert
Data Reviewed
-
Date of Service: May 10, 2025
Medical Decision Making: Reviewed Test Results
Echo: Report Reviewed by me
Medical Tests (PFT, Pathology etc): Report Reviewed by me
Labs: Labs Reviewed by me
[2025-05-10] MEDS: ENTRESTO 97 MG/103 MG 1 TAB PO (11:16)
[2025-05-10] MEDS: ELIQUIS 5 MG PO (11:17)
[2025-05-11] MEDS: ELIQUIS 5 MG PO ×2 (00:11→11:19)
[2025-05-11] MEDS: ENTRESTO 97 MG/103 MG 1 TAB PO ×2 (00:11→11:19)
[2025-05-11 03:10] VITALS: BP 139/104
[2025-05-11 04:11] VITALS: BP 129/98
[2025-05-11 06:00] VITALS: BMI 21.4
--- NOTE | 2025-05-11 07:50 | W.PN.HOSP.TC ---
Addendum entered and electronically signed by Wagner Kaye MD 05/11/25 22:57:
Attending Addendum:
I saw and evaluated the patient. I reviewed the resident�s note and agree with findings and plan as documented in the resident�s note. Sub: No further palps of sxs related to a fib. Denies n/v. Ready to go home. Full 12 point ROS reviewed and
negative except as documented Exam: Vitals reviewed in chart GEN-NAD heart irreg irreg lungs clear abd soft LE no edema
#Symptomatic A-fib with RVR with TADEO Thrombus
Patient with 2 admissions this month for A-fib with RVR; last discharged on 05/04. With last ablation in July 2022. With last cardioversion in October 2024, after resolution of thrombus. New left atrial thrombus identified on 04/21/25
- cont new Carvedilol 6.25 mg twice daily tolerating well
- Continue standing daily 40 mg Lasix p.o.
- Continue home Entresto, spironolactone, Jardiance (farxiga here)
- Continue home Eliquis 5 mg twice daily
- Cardiology consulted, appreciate recs
- Plan for repeat ablation outpatient after RACIEL on 06/02
- Per cards, plan for repeat RACIEL 4 weeks after last RACIEL 05/19
#Nonischemic cardiomyopathy, HFrEF (30-35% EF)
#Potential mild exacerbation potential for mild HFrEF exacerbation in the setting of
Patient with RACIEL on 04/21/2025 demonstrating LVEF of 30-35%. Patient has been on GDMT for HF. Follows with Dr. Will at [facility]. Symptomatic A-fib with RVR, due to patient noting mild increase in RLEE, orthopnea, GRAF. However, on exam patient
does not appear volume overloaded. At dry weight 63kg.
- Continue with home medications as above
- Monitor daily weights, I's and O's
- Cardiology consulted, appreciate recs
#Multidrug resistant HTN
Patient with BPs ranging systolic 130-160 this admission. Per patient and his typical home BPs systolic ranged from 140-150. Has documented diagnosis of multidrug resistant HTN. Not experiencing hypertensive symptoms.
- Outpatient workup for underlying etiology
- cont coreg
- Continue to monitor BP and patient
#Elevated troponin/NIMI
Troponin levels elevated on admission. Likely secondary to demand ischemia.
Trope: 0.098>0.085>0.095
- Continue to trend troponin, monitor for peak
#MCKINLEY
Patient with diagnosis of MCKINLEY, discussed need for repeat sleep study soon.
- Nightly CPAP
- Outpatient repeat sleep study
#Global
- DVT PPx: Eliquis 5 mg twice daily
- Diet: Low-sodium
- Code: Full
- Dispo: To home
Time spent coordinating care, DC planning, review of DC plan of care with resident, transition of care, review of records, med rec/scripts sent electronically, consults, notes, d/w consultants, nursing, and CM� 33 mins >50% of this time was devoted
to counseling and coordination of care
Original Note:
Today's Communication/Plan
-
Discharge today
Assessment / Plan
Assessment / Plan
This is a 54 y/o male with pmhx of nonischemic cardiomyopathy with reduced EF of 30-35%, left atrial appendage thrombus (As noted on Echo from 04/21/2025), symptomatic paroxysmal atrial fibrillation with RBR, multi drug resistant hypertension and
obstructive sleep apnea who presented to the ED on 05/09/2025 with worsened shortness of breath found to be in atrial fibrillation.
#Symptomatic A-fib with RVR
- S/p ablation on 07/2022 and cardioversion in 10/2024
- New left atrial thrombus noted on echo from 04/21/2025.
- Patient has had 2 admissions this month preceding this hospitalization for Atrial Fibrillation with RVR. He was most recently discharged from the hospital on 05/04.
- Continue Carvedilol 6.25 mg twice daily
- Continue standing daily 40 mg Lasix p.o.
- Continue home Entresto, spironolactone, Jardiance (farxiga here)
- Continue home Eliquis 5 mg twice daily
- Plan for follow up with outpatient Cardiology on 05/19/2025 for repeat RACIEL with possible ablation
#Nonischemic cardiomyopathy, HFrEF (30-35% EF)
- Patient with RACIEL on 04/21/2025 demonstrating LVEF of 30-35%. Patient has been on GDMT for HF. Follows with Dr. Will at [facility].
- Shortness of breath most notably due to atrial fibrillation with RVR, as he has not appeared volume overloaded during this hospitalization
- Continue with home medications as above
- Monitor daily weights, I's and O's while in the hospital
- Encouraged follow up with cardiology for scheduled appointment on 05/19
#Nausea - Resolved
-Patient with nausea and vomiting associated with beta-blockers
-No current symptoms on Carvedilol
#Multidrug resistant HTN
-Patient with BPs ranging systolic 130-160 this admission. Per patient and his typical home BPs systolic ranged from 140-150. Has documented diagnosis of multidrug resistant HTN. Not experiencing hypertensive symptoms.
- Outpatient workup for underlying etiology
- Continue Carvedilol
- Continue to monitor BP and patient
#Elevated troponin
-Troponin levels elevated on admission.
-Peaked on 05/09 at 0.098, most recent 0.083 on 05/10
-Likely secondary to demand ischemia.
#MCKINLEY
-Patient with diagnosis of MCKINLEY
- Nightly CPAP
- Continue follow up outpatient for repeat sleep study
#Global
- DVT PPx: Eliquis 5 mg twice daily
- Diet: Low-sodium
- Code: Full
- Dispo: To home, pending improved rate control
Anticipated Discharge: Today
Subjective/Interval History
-
Date of Service: May 11, 2025
Today patient reports he is well, feeling much better than when he came in. He is no longer short of breath. He states he had a cardiology appointment scheduled for 05/19 for a RACIEL with possible cardioversion. He is tolerating Carvedilol well with no
nausea or vomiting.
Objective Data
-
Labs:
Laboratory Results
05/11/25
07:44
WBC Pending
Hgb Pending
Hct Pending
Plt Count Pending
Sodium Pending
Potassium Pending
Chloride Pending
Carbon Dioxide Pending
BUN Pending
Creatinine Pending
Glucose Pending
Calcium Pending
Total Bilirubin Pending
AST Pending
ALT Pending
Alkaline Phosphatase Pending
Vital Signs:
Vital Signs
Temp Pulse Resp BP Pulse Ox
97.8 F 75 18 129/98 95
05/11/25 03:10 05/11/25 04:11 05/11/25 03:10 05/11/25 04:11 05/11/25 03:10
I&O
05/10/25 05/11/25 05/12/25
06:59 06:59 06:59
Intake Total 480 / 480 480 / 480
Output Total 1075 / 1075 975 / 975
Balance -595 / -595 -495 / -495
Review of Systems
-
History Source: Patient
Constitutional: Denies Fever or Chills
Respiratory: Denies Cough or Trouble Breathing
Cardiac: Denies Chest Pain or Palpitations
Abdomen/GI: Denies Abdominal Pain, Nausea, Vomiting, Diarrhea or Constipated
Neuro: Denies Dizzy
Physical Exam
-
General: Well Developed, Well Nourished and No Apparent Distress
HEENT: Normocephalic and Atraumatic
Respiratory: Clear to Auscultation
Cardiac: S1/S2 and Irregular Rhythm
GI: Soft and Nontender
Skin: Warm and Dry
Neuro: Awake, Alert and Oriented
Psych: Calm and Intact Judgement/Insight
[2025-05-11] MEDS: LASIX PO (08:12)
[2025-05-11] MEDS: COREG 6.25 MG PO (08:13)
[2025-05-11] MEDS: FARXIGA 10 MG PO (08:13)
[2025-05-11] MEDS: ALDACTONE 50 MG PO (08:13)
[2025-05-11 08:27] VITALS: BP 132/96
[2025-05-11 09:05] LABS: Hematocrit 46.6 % (39.0-52.0); Hemoglobin 15.6 g/dL (13.0-18.0); Mean Corp Hgb Conc. 33.5 g/dL (33.0-37.0); Mean Corpuscular Volume 88.9 fL (80.0-94.0); Platelet Count 219 10^3/uL (130-400); Red Cell Dist. Width 13.5 % (11.5-14.5)
[2025-05-11 09:56] LABS: ALT (SGPT) 41 U/L (0-50); AST (SGOT) 29 U/L (17-59); Albumin 3.2 g/dl (3.5-5.0); Alkaline Phosphatase 69 U/L (38-126); Blood Urea Nitrogen 40 mg/dl (9-20); Calcium 8.3 mg/dl (8.4-10.2); Carbon Dioxide 30 mmol/L (22-30); Chloride 102 mmol/L (98-107); Estimated Creatinine Clearance 62 ml/min; Glucose 83 mg/dl (70-99); Magnesium 2.3 mg/dl (1.6-2.3); Sodium 136 mmol/L (135-145); Total Protein 5.6 g/dl (6.3-8.2); eGFR > 60.00
[2025-05-11 10:04] LABS: Potassium 3.9 mmol/L (3.5-5.1)
[2025-05-11 11:40] VITALS: BP 133/99
--- NOTE | 2025-05-11 13:33 | CM ---
Pt discharged - Home with no needs
[2025-05-11 14:54] VITALS: BP 141/98
--- NOTE | 2025-05-11 18:02 | W.DCSUMMARY ---
Addendum entered and electronically signed by Wagner Kaye MD 05/11/25 22:57:
Read, reviewed, and agree. See same day progress note for additional details.
Viral Kaye MD
Original Note:
Documented by User: Erika Wray DO, Resident 05/11/25 18:06
Discharge Summary
Discharge Data
Date of Admission: 05/09/25
Date of Discharge: 05/11/25
-
Pending Results: No
Hospital Course
Discharging Physician : Wagner Kaye MD
Disposition : Good
Primary care physician: Reyes Shabazz
Principal Discharge diagnosis : Symptomatic A-fib with RVR, acute on chronic HFrEF
Chronic Discharge diagnosis : HFrEF (30-35%), MCKINLEY, multidrug-resistant hypertension
Hospital Course :
Patient presented with worsening dyspnea on exertion and palpitations on 05/09, found to be in A-fib with RVR. Patient was admitted twice prior this month for similar symptoms. He has a history of being cardioverted multiple times in the past for
his a-fib and had ablation done in July 2022. He had an atrial clot on RACIEL in September 2024 and underwent successful cardioversion after repeat RACIEL in October 2024 demonstrated no atrial thrombus. However, he was admitted earlier this month with
symptomatic a-fib. RACIEL on 04/21/2025 demonstrated new, larger thrombus in left atrial appendage. Cardiology planned for repeat RACIEL and cardioversion on 05/19. Patient also had consultation appointment scheduled for 06/03 for repeat ablation planning.
However, following the admission 04/21, patient was admitted again for symptomatic a fib (discharged on 05/04), after which point he was started on metoprolol 100 mg daily, his amlodipine was stopped, and his prn Lasix was converted to daily 40 mg
Lasix. Patient experienced significant nausea/vomiting with metoprolol. His outpatient materials engineer converted this to atenolol, which also resulted in nausea/vomiting. He began to have intolerable shortness of breath following vomiting and
presented back to ED on 05/09. Endorsed adherence with his home Eliquis, Jardiance, Entresto, and spironolactone.
On presentation, was tachycardic in afib with HR as high as 116/min, otherwise hemodynamically stable and on room air. Labs with BUN 36, T. bili 1.8, troponin 0.098, BNP 15,600. ECG showed AF with RVR, marked ST downsloping depressions in V4
through 6, QTc 529 ms. Chest x-ray showed mild cardiomegaly and pulmonary vascularity with signs of congestion. Started on Lasix 40 mg IV in the ED. Given additional 40 mg IV Lasix prior to admission to the floor. On exam, appeared relatively
euvolemic but right lower extremity had trace pitting edema and patient endorsed orthopnea.
Patient was admitted and continued on his standing daily 40 mg Lasix p.o., home Entresto, home Eliquis, spironolactone, and SGLT2 inhibitor. Metoprolol was discontinued and he was started on carvedilol 3.125 mg, which was increased to 6.25 mg on
05/10. Patient reported improvement in dyspnea and palpitation symptoms on 05/10, although was still experiencing some nausea/vomiting. Patient was started on as needed Tigan for nausea. BP trended down status post starting 6.25 mg carvedilol, to
120-130s systolic (home typically 140-150s systolic).
On 05/11/2025 he was no longer short of breath and free of palpitations and nausea. He was found to be medically stable and discharged to home with a follow up appointment already scheduled for 05/19/2025 for RACIEL and possible cardioversion.
Important imaging findings : N/A
Procedure findings : N/A
Discharge Plan
-
Patient Disposition: Home (Routine Discharge)
Discharge Diagnosis/Procedures: Symptomatic paroxysmal atrial fibrillation with RVR, Non-ischemic cardiomyopathy with reduced EF of 30-35%, Left Atrial appendage thrombus (As noted on Echo from 04/21/2025), multi drug resistant hypertension and
obstructive sleep apnea
Condition: Good
Diet: No restrictions and Regular
Activity: No restrictions
Driving Restrictions: As prior to admission
Bathing Restrictions: None
Blood Work: BMP in 1 week
Referrals:
Reyes Shabazz MD [Primary Care Provider, Internal Medicine] - in less than 1 week
Prescriptions:
New
carvedilol 6.25 mg Tablet
6.25 mg PO BID Qty: 60 0RF
Continued
Eliquis 5 mg tablet
5 mg PO BID@1200,0000
sacubitril-valsartan [Entresto] 97-103 mg tablet
1 tab PO BID
spironolactone 50 mg tablet
50 mg PO DAILY
furosemide [Lasix] 40 mg tablet
40 mg PO DAILY Qty: 0 0RF
Jardiance 10 mg Tablet
10 mg PO DAILY Qty: 30 0RF
Discontinued
atenolol 25 mg tablet
25 mg PO DAILY
metoprolol succinate 50 mg tablet extended release 24 hr
25 mg PO DAILY
Discharge Orders:
Discharge Patient (As Directed); Ordered 05/11/25
Ordered By: Erika Wray
Discharge Date and Time
Discharge Date/Time: 05/11/25 15:05
Print Language: CYPRIOT

Documented by User: Wagner Kaye MD 05/11/25 22:52
Discharge Summary
Discharge Data
Date of Admission: 05/09/25
Date of Discharge: 05/11/25
Discharge Plan
-
Patient Disposition: Home (Routine Discharge)
Discharge Diagnosis/Procedures: Symptomatic paroxysmal atrial fibrillation with RVR, Non-ischemic cardiomyopathy with reduced EF of 30-35%, Left Atrial appendage thrombus (As noted on Echo from 04/21/2025), multi drug resistant hypertension and
obstructive sleep apnea
Condition: Good
Diet: No restrictions and Regular
Activity: No restrictions
Driving Restrictions: As prior to admission
Bathing Restrictions: None
Blood Work: BMP in 1 week
Referrals:
Reyes Shabazz MD [Primary Care Provider, Internal Medicine] - in less than 1 week
Prescriptions:
New
carvedilol 6.25 mg Tablet
6.25 mg PO BID Qty: 60 0RF
Continued
Eliquis 5 mg tablet
5 mg PO BID@1200,0000
sacubitril-valsartan [Entresto] 97-103 mg tablet
1 tab PO BID
spironolactone 50 mg tablet
50 mg PO DAILY
furosemide [Lasix] 40 mg tablet
40 mg PO DAILY Qty: 0 0RF
Jardiance 10 mg Tablet
10 mg PO DAILY Qty: 30 0RF
Discontinued
atenolol 25 mg tablet
25 mg PO DAILY
metoprolol succinate 50 mg tablet extended release 24 hr
25 mg PO DAILY
Discharge Orders:
Discharge Patient (As Directed); Ordered 05/11/25
Ordered By: Erika Wray
Discharge Date and Time
Discharge Date/Time: 05/11/25 15:05
Print Language: CYPRIOT
--- NOTE | 2025-05-12 09:34 | PN.CDI ---
CDI
- -
CDI:
Physician Documentation Request
Admit Date: 05/09/25 13:15
Dear Doctor Abhijit,
Patient admitted for afib.
05/10 Cardiology PN: 'Abnormal troponin, nonischemic myocardial injury in the setting of atrial fibrillation with right ventricular response and acute on chronic HFrEF'
05/11 Hospitalist PN:'Elevated troponin/NIMI...Troponin levels elevated on admission. Likely secondary to demand ischemia.'
Please clarify the following regarding the documented troponin elevation:
Nonischemic myocardial injury
Demand ischemia
Other
Use of terms such as suspected, likely, concern for, or probable (associated with a specific diagnosis that is being evaluated, monitored, or treated as if it exists) are acceptable and can be coded in the inpatient setting, when documented at the
time of discharge.
Thank you,
Tiff Westbrook RN, BSN
CDI Specialist
Available via [place] text
Please use your independent medical judgment in providing your response.
== END 2025-05-11 15:05 | disposition home or self-care (01) | DRG 291 ==
LOC: 4 EAST ACU 13:15
PROVIDERS: Physician Assistant; ADMITTING PHYSICIAN Internal Medicine; ATTENDING PHYSICIAN Family Medicine; CONSULT PHYSICIAN Internal Medicine Cardiovascular Disease; EMERGENCY PHYSICIAN Emergency Medicine; PRIMARYCARE PHYSICIAN Internal Medicine
DX: I11.0 Hypertensive heart disease with heart failure (principal); I50.23 Acute on chronic systolic (congestive) heart failure; I48.19 Other persistent atrial fibrillation; I24.89 Other forms of acute ischemic heart disease; G47.33 Obstructive sleep apnea (adult) (pediatric); I1A.0 Resistant hypertension; I42.8 Other cardiomyopathies; N40.0 Benign prostatic hyperplasia without lower urinary tract symptoms; Z79.01 Long term (current) use of anticoagulants; Z79.84 Long term (current) use of oral hypoglycemic drugs; Z79.899 Other long term (current) drug therapy; Z82.49 Family history of ischemic heart disease and other diseases of the circulatory system
CPT/HCPCS: 71046; 80053; 83735; 83880; 84484; 85025; 85027; 93005; 96374; 99285

== ENCOUNTER 2025-05-15 07:30 | Emergency (ER) | payer OTHER, SELFPAY ==
[2025-05-15] VITALS (11 sets, daily range): BP systolic 133–159; BP diastolic 100–127; BMI 22.4
--- NOTE | 2025-05-15 08:00 | ED.GENMED ---
History of Present Illness
General
Chief Complaint: Cardiac Symptoms
Source: patient and records
Time Seen by Provider: 05/15/25 07:47
History of Present Illness
History of Present Illness:
55-year-old male with past medical history of atrial fibrillation, cardiomyopathy/CHF, hypertension presenting back to the emergency department for reevaluation of what he believes to be symptomatic atrial fibrillation and fluid overload. Patient
was recently discharged from this facility about 5 days ago due to complications from his A-fib. He had an echocardiogram done earlier this month which showed an atrial thrombus thus patient was not able to be cardio, he is scheduled to undergo
outpatient RACIEL and cardioversion this coming May 19. Patient states last night he started to feel increasing shortness of breath/exertional dyspnea, orthopneic and noticed swelling to bilateral ankles despite taking his medications
as prescribed including now 40 mg of Lasix daily as opposed to previously as needed. Patient also notes that he feels that he is sustaining side effects from his beta-blockers noting that he had previously been on metoprolol and atenolol but had
nausea and vomiting from this and last night started feel unwell after taking his carvedilol. Patient previously had an ablation done in 2021. He has no other concerns at this time.
Past History
Past History
ED Past Medical History: Arrthythmia, CHF and HTN
ED Past Surgical History: Cardiac
Social History
Tobacco: Non-smoker
Alcohol: None
Drug: None
Personal:
Living: alone
Employment: Employed
Review of Systems
Review of Systems
All Other Systems: ROS reviewed and negative except as documented in HPI and ROS
Phy Exam
Physical Exam
Physical Exam:
GENERAL: Alert , in no apparent distress
EYE: clear conjunctiva
NECK: Supple
ENT: mmm.
CARDIAC: Irregularly irregular, tachycardic rates between 98 bpm and 123 bpm
LUNGS: Clear breath sounds bilaterally, no acute respiratory distress,
ABDOMEN: Soft, without focal tenderness, no r/g, no cvat
NEUROLOGICAL: Alert and oriented
SKIN: Warm and dry, skin intact.
MUSCULOSKELETAL: Trace pitting bilateral ankle edema, well perfused.
PSYCH: Normal and appropriate interaction.
Scores
Heart Failure Risk
Heart Failure Risk Score: Yes
History of Stroke or TIA: No
History of intubation for respiratory distress: No
Heart rate on ED arrival >/= 110: Yes
SaO2 <90% on arrival on room air: No
HR >/=110 during 3min walk test (or too ill to perform test): Yes
ECG has acute ischemic changes: No
Urea >/=12mmol/L (BUN 33.6mg/dL): No
Serum CO2>/=35mmol/L: No
Troponin I or T elevated to VA Level (0.4mg/dL): No
NT-proBNP >/=5,000ng/L (5,000pg/ml): Yes
HF Risk Score: 3
Admission Status: HIGH RISK 15.9% Consider SNF treatment or admission to hospital
Heart Score for Chest Pain Patients
STEMI patient?: Not applicable
Withdrawal Assessment of Alcohol
Withdrawal Assessment Completed?: Not applicable
Course
Orders/Labs/Results
Orders:
Orders
05/15/25 07:35
Electrocardiogram (*1) Urgent
Reason for Study: Shortness of Breath
EKG- Treatment ONCE
05/15/25 08:08
Basic Metabolic Panel Urgent
Complete Blood Count/With Diff Urgent
NT-proBNP Urgent
Troponin I Urgent
05/15/25 09:08
CR Chest - 2 Views Urgent
Comment:
Reason For Exam: short of breath
05/15/25 11:27
Furosemide [Lasix] 40 mg IV NOW STA
05/15/25 12:08
Digoxin [Lanoxin] 500 mcg PO NOW STA
Abnormal Lab Results
05/15/25
08:08
MPV 10.7 H fL
(7.4-10.4)
Absolute Lymphs (auto) 1.0 L 10^3/uL
(1.2-3.4)
Neutrophils % 79.3 H %
(42.2-75.2)
Lymphocytes % 13.3 L %
(20.5-51.1)
Carbon Dioxide 21 L mmol/L
(22-30)
BUN 42 H mg/dl
(9-20)
Glucose 136 H mg/dl
(70-99)
Troponin I 0.162 H* ng/ml
05/15/25 08:08
05/15/25 08:08
Vital Signs
Initial and Last Documented VS:
Initial Vital Signs
Temp Pulse Resp BP Pulse Ox
98.0 F 75 16 148/100 98
05/15/25 07:32 05/15/25 07:32 05/15/25 07:32 05/15/25 07:32 05/15/25 07:32
Last Documented Vital Signs
Temp Pulse Resp BP Pulse Ox
98.6 F 112 20 139/125 99
05/15/25 08:17 05/15/25 13:25 05/15/25 10:24 05/15/25 13:11 05/15/25 13:15
MDM/Problems Addressed
Differential Diagnosis Includes:
Continued progression of symptomatic A-fib
Volume overload
Renal dysfunction
Less concern for an infectious etiology
Valvular dysfunction
MDM/Problems Addressed:
55-year-old male presenting back to the emergency department after recent admission here for reevaluation of shortness of breath combined with elevated heart rate and lower extremity edema, last night became more short of breath and orthopneic.
Recent history of similar. Unfortunately patient unable to be cardioverted on his visit here due to having a atrial thrombus on echocardiogram, scheduled to undergo a repeat RACIEL with tensional cardioversion as long as RACIEL shows no atrial thrombus.
Heart rate here between the high 90s and just above 120 bpm. Will repeat labs, consult with cardiology for ultimate disposition planning.
Chronic conditions affecting care: Arrhythmia
Acute Exacerbation and/or Progression of Chronic Illness: Arrhythmia
*Radiology
Radiology exam reviewed: radiology read reviewed
*Pulse Oximetry
SaO2: 98
Oxygen Mode of Delivery: Room air
Patient hypoxic: no
*EKG
Heart Rate: 122
Rate: tachycardiac
Rhythm: a-fib
[place]: left axis deviation
Ischemia: ST depression (v4-v6 but unchanged from last EKG)
*Chief Legal Officer Interpretation
Rate: tachycardiac
Heart Rate: 115
Rhythm: a-fib
*Critical Care Note
Total Time (30-74mins, 75-104mins- exclusive of procedures): Not Applicable
Data Reviewed
Review of Other/Old Records Reveals: Labs, Records and Discharge Summary
Patient Management
Discussion with other providers: Cheesemaking Laborer
Escalation/DeEscalation of care consider admission/obs:
Patient seen and evaluated by cardiology. They are recommending that patient be treated here with a 40 mg dose of IV Lasix, 500 mcg dose of digoxin and be discharged home with a prescription for 250 mcg of digoxin to take once daily. Patient will
follow-up as scheduled on Sunday for RACIEL and cardioversion. He is aware of the return precautions to the ER, otherwise stable for discharge home
ED Attending Note
-
Portions of this chart may have been created with voice recognition software.� Occasional wrong word or��sound alike� substitutions may have occurred due to the inherent limitations of voice recognition software.
Discharge Plan
Departure
Patient Disposition: Home (Routine Discharge)
Date of Disposition: 05/15/25
Time of Disposition: 12:53
Patient with high blood pressure during this ER visit?: Yes
Discharge Problem:
Atrial fibrillation
Instructions: Atrial fibrillation (DC)
Prescriptions:
New
digoxin 250 mcg (0.25 mg) tablet
250 mcg PO DAILY Qty: 30 0RF
No Action
Eliquis 5 mg tablet
5 mg PO BID@1200,0000
sacubitril-valsartan [Entresto] 97-103 mg tablet
1 tab PO BID
spironolactone 50 mg tablet
50 mg PO DAILY
carvedilol 6.25 mg Tablet
6.25 mg PO BID Qty: 60 0RF
furosemide [Lasix] 40 mg tablet
40 mg PO DAILY Qty: 0 0RF
Jardiance 10 mg Tablet
10 mg PO DAILY Qty: 30 0RF
Referrals:
Reyes Shabazz MD [Family Provider, Internal Medicine]
Interventions
Interventions:
*Risk Screen - Suicide Last Done: 05/15/25 07:32
*General Assessment Last Done: 05/15/25 08:17
*Neglect/Abuse Screening Last Done: 05/15/25 07:32
*ED- Fall Risk Assessment Last Done: 05/15/25 08:17
*ED COVID-19 Vaccine History Last Done: 05/15/25 08:17
*Nursing Disposition Last Done: 05/15/25 13:47
ED- Pulmonary Assessment Last Done: 05/15/25 08:17
ED- Cardiac Assessment Last Done: 05/15/25 08:17
Discharge Date and Time
Print Language: [place]
[2025-05-15 08:20] LABS: Hematocrit 44.7 % (39.0-52.0); Hemoglobin 15.1 g/dL (13.0-18.0); Mean Corp Hgb Conc. 33.8 g/dL (33.0-37.0); Mean Corpuscular Volume 86.8 fL (80.0-94.0); Nucleated Red Blood Cells % 0 % (-); Platelet Count 210 10^3/uL (130-400); Red Cell Dist. Width 14.0 % (11.5-14.5)
[2025-05-15 08:33] LABS: Blood Urea Nitrogen 42 mg/dl (9-20); Calcium 8.8 mg/dl (8.4-10.2); Carbon Dioxide 21 mmol/L (22-30); Chloride 105 mmol/L (98-107); Glucose 136 mg/dl (70-99); Potassium 4.0 mmol/L (3.5-5.1); Sodium 135 mmol/L (135-145); eGFR > 60.00
[2025-05-15 08:48] LABS: Troponin I 0.162 ng/ml
--- NOTE | 2025-05-15 10:51 | CON.CAR ---
Addendum entered and electronically signed by Leonel Stevens MD 05/15/25 12:09:
I saw and evaluated the patient, and I provided the substantive portion of the medical decision making.
I reviewed and agree with the note by MADISON and it accurately reflects our care.
I personally performed the medical decision making of the this encounter and my assessment and plan is below:
55-year-old man with persistent atrial fibrillation with TADEO thrombus and heart failure with reduced ejection fraction (EF 30-35%) who presents with worsening shortness of breath and lower extremity edema. This is his fourth visit to the hospital
this month. He initially presented on 04/21/2025 with A-fib with RVR and was found to have left atrial appendage thrombus. Plan was for rate control and repeat RACIEL in 4 weeks with possible cardioversion (scheduled for 05/19/2025). He presented 2
additional times due to beta-ellen intolerance. He has now tried metoprolol, atenolol, and most recently carvedilol which he thinks he is not tolerating. He presented today due to lower extremity edema and generally feeling unwell which he
attributes to the atrial fibrillation.
Physical exam: Irregular rate and rhythm, nonpitting lower extremity edema bilaterally, clear lungs
Labs notable for creatinine 1.3, troponin 0.162, BNP 13,000
I personally reviewed his chest x-ray which shows trace pulmonary edema no pleural effusions
My review of his ECG shows atrial fibrillation with RVR, HR 122 bpm, LVH with repolarization abnormality
Telemetry: A-fib with heart rates mostly 90s�100s
Persistent atrial fibrillation: Unfortunately rhythm control is not an option due to TADEO thrombus. He is not tolerating carvedilol and did not tolerate metoprolol or atenolol. We cannot use calcium channel blockers due to his reduced EF. We will
start digoxin (500 mcg now and 250 mcg daily at home). Plan for hopeful cardioversion on Sunday assuming TADEO thrombus has resolved.
Acute on chronic CHF: Appears mildly volume overloaded. Give 1 dose IV Lasix now and increase home Lasix to 80 mg daily.
He is safe for discharge from a cardiovascular standpoint. We discussed return precautions and signs/symptoms that would warrant ER evaluation.
Original Note:
Consultation
Consultation Request
Date/Time Consultation Requested: 05/15/25 9a
Date/Time Consultation Performed: 05/15/25 9:30a
Requesting Provider: Doni Jerez PA-C
Performing Provider: MADISON Babcock for Dr. Stevens
Reason for Consultation: sob/afib
Medical History
-
Chief Complaint: sob
History of Present Illness:
Mr. Harmon is a 55 yo male with persistent atrial fibrillation (s/p cardioversion X3, ablation in 2008), on Eliquis, TADEO thrombus, heart failure with reduced ejection fraction (LVEF 30-35%), multidrug resistant hypertension, MCKINLEY, and BPH, who is
here with recurrent c/o SOB. He also c/o 'not feeling well' from Coreg with constipation and GI distress. He has not tolerated Toprol or Atenolol due to GI issues. He states weight at home is 139 lbs, stable w/o weight gain but he admits to feeling
swelling in his legs. As an outpatient, 05/13/25 he called the office c/o SOB and his Lasix 40mg was increased to 80mg, he states really only doing this for 1 day. He is scheduled for a repeat RACIEL on 05/19/25 to reassess his TADEO thrombus. Afib rates
have been fairly stable while on Coreg. He was just discharged from [facility] on 05/10/25 for rapid Afib/SOB.
Past Medical History
Past Medical History: Other (as above)
Social History
Tobacco: Non-Smoker
Family History
Family History: Reviewed & Not Pertinent
Allergies / Home Medications
Allergy/AdvReac Type Severity Reaction Status Date / Time
No Known Allergies Allergy Verified 05/15/25 07:34
�Medication �Instructions �Recorded �Confirmed �Type
apixaban 5 mg tablet (Eliquis) 5 mg PO BID@1200,0000 Blood Clot 05/03/25 05/15/25 History
Prevention/Tx
sacubitril 97 mg-valsartan 103 mg 1 tab PO BID Heart Failure 05/09/25 05/15/25 History
tablet (Entresto)
spironolactone 50 mg tablet 50 mg PO DAILY Heart Failure 05/09/25 05/15/25 History
carvedilol 6.25 mg tablet 6.25 mg PO BID Atrial Fibrillation 05/11/25 05/15/25 Rx
#60 tabs
empagliflozin 10 mg tablet 10 mg PO DAILY Heart 05/11/25 05/15/25 Rx
(Jardiance) disease/condition #30 tabs
furosemide 40 mg tablet (Lasix) 40 mg PO DAILY Heart 05/11/25 05/15/25 Rx
disease/condition #0 tabs
Review of Systems
-
History Source: Patient
All other systems: Negative unless noted
Physical Exam
Vital Signs
Temp Pulse Resp BP Pulse Ox
98.6 F 107 20 140/118 98
05/15/25 08:17 05/15/25 10:24 05/15/25 10:24 05/15/25 10:24 05/15/25 10:24
Lab Results
05/15/25 08:08
05/15/25 08:08
Troponin I 0.162 ng/ml H* 05/15/25 08:08
Tuk-T-Zykxtmamgvb Pept 65569 pg/ml 05/15/25 08:08
Physical Exam
General: Well Developed and Well Nourished
HEENT: Normocephalic and Anicteric
Respiratory: Clear and Non Labored Respirations
Cardiac: S1/S2, Irregular Rhythm and Peripheral Edema (trace b/l LE)
Breast: Deferred by me
GI: Soft, Non Tender, Non Distended and Normal Bowel Sounds
Rectal: Deferred by Provider
Genito-urinary: Clear Urine
Musculoskeletal: No Clubbing and No Cyanosis
Skin: Warm and Dry
Neuro: AO x 3
Psych: Calm
Impression / Plan
-
SOB/HFrEF (EF 30 to 35%), acute on chronic.
- give IV Lasix in the ER now.
- he will increase PO Lasix to 80mg daily and monitor daily weights.
- GDMT as tolerated.
- BRENTON/ARB/ARNI: Sacubitril/valsartan 97-103 mg twice daily
- SGLT2 inhibitor: Jardiance 10 mg daily
- Aldosterone agonist: Spironolactone 50 mg daily
- Beta ellen: Did not tolerate metoprolol succinate or atenolol, not tolerating Coreg so will stop it.
- Isosorbide/Hydralazine:�Can consider
- ICD: Not currently indicated
Persistent atrial fibrillation - rates 90s-100s.
- Challenging to rate control given drug intolerances, stopping Coreg due to side effects.
- Will try Digoxin, load with 500mcg now and 250mcg daily as outpatient.
- Continue apixaban 5 mg twice daily
- [id number]: score 2 (Heart failure, HTN)
- Plan will be to repeat RACIEL with possible cardioversion if no thrombus on 05/19/2025 this will be 4 weeks from his last RACIEL.
- Will ask EP/Dr. White to reassess regarding possible second ablation.
TADEO thrombus - continue on Eliquis.
Hypertension - Suboptimal blood pressure control.
- did not tolerate Coreg, now stopping.
- increasing Lasix as above.
- can consider Hydralazine.
Abnormal troponin, nonischemic myocardial injury in the setting of Afib, HTN and acute on chronic HFrEF.
- Denies chest pain.
- Troponin 0.162.
Data Reviewed
-
EKG: Tracing Personally Visualized and interpreted
Labs: Labs Reviewed by me
Old Records: Reviewed
[2025-05-15] MEDS: LASIX 40 MG IV (12:06)
--- NOTE | 2025-05-15 12:15 | EDRN ---
this RN entered the pts room to administer lasix and provide discharge instructions for the pt and the pt stated, 'There is now way that I can go home, i am too short of breath, I don't feel comfortable going home', this RN notified Doni Jerez
PA
--- NOTE | 2025-05-15 12:47 | EDRN ---
Doni IQBAL currently at the pts bedside
[2025-05-15] MEDS: LANOXIN 500 MCG PO (13:25)
== END 2025-05-15 14:00 | disposition home or self-care (01) ==
LOC: EMR 07:30
PROVIDERS: Physician Assistant Medical; EMERGENCY PHYSICIAN Emergency Medicine; FAMILY PHYSICIAN Internal Medicine
DX: I48.91 Unspecified atrial fibrillation (principal); I42.9 Cardiomyopathy, unspecified; I11.0 Hypertensive heart disease with heart failure; I50.23 Acute on chronic systolic (congestive) heart failure; G47.33 Obstructive sleep apnea (adult) (pediatric); N40.0 Benign prostatic hyperplasia without lower urinary tract symptoms; Z79.01 Long term (current) use of anticoagulants; Z79.899 Other long term (current) drug therapy; Z82.49 Family history of ischemic heart disease and other diseases of the circulatory system
CPT/HCPCS: 99283; 71046; 80048; 83880; 84484; 85025; 93005

== ENCOUNTER 2025-05-22 06:58 | Day surgery (SDC) | payer OTHER, SELFPAY | END 2025-05-22 10:24 | disposition home or self-care (01) | LOC: CATH 06:58 | PROVIDERS: ATTENDING PHYSICIAN Internal Medicine Cardiovascular Disease; FAMILY PHYSICIAN Internal Medicine; OTHER PHYSICIAN Internal Medicine Cardiovascular Disease | DX: I48.91 Unspecified atrial fibrillation (principal); I51.3 Intracardiac thrombosis, not elsewhere classified | CPT/HCPCS: 93312; 93325; 93320 ==

== ENCOUNTER 2025-05-26 14:32 | Inpatient (IN) | payer OTHER, SELFPAY ==
[2025-05-26] VITALS (17 sets, daily range): BP systolic 146–178; BP diastolic 98–139; BMI 25.0; BMI 23.1; BMI 21.5
--- NOTE | 2025-05-26 09:16 | ED.GENMED ---
History of Present Illness
<MADISON Perez - Last Filed: 05/26/25 11:45>
General
Chief Complaint: Cardiac Symptoms
Source: patient
Exam Limitations: none
Time Seen by Provider: 05/26/25 09:09
Nursing documentation reviewed up to this point in time: agreed with
History of Present Illness
History of Present Illness:
Patient is a 55-year-old male past with a history of A-fib cardiomyopathy CHF, atrial thrombus presents to the ER for evaluation of shortness of breath increasing lower extremity swelling. Patient was seen here on Sunday scheduled to have a
cardioversion however because of the existing thrombus procedure was not done. He reports he was symptomatic since. He is followed by Dr. Lopez. He has had 2 of 3 cardioversions, 2 ablations. He is on Eliquis and has not recently skipped a dose.
He has issues with rate controlling drugs such as beta-blockers and did not tolerate them well. He is not a candidate for calcium channel blockers due to his reduced EF he is on digoxin.
Past History
<MADISON Perez - Last Filed: 05/26/25 11:45>
Past History
ED Past Medical History: Arrthythmia, CHF and HTN
ED Past Surgical History: Cardiac
Social History
Tobacco: Non-smoker
Alcohol: None
Drug: None
Personal:
Living: alone
Employment: Employed
Phy Exam
<MADISON Perez - Last Filed: 05/26/25 11:45>
General Physical Exam
General Presentation: no apparent distress
General age: appears stated age
General Skin: warm and dry
General Habitus: normal
General Mental: alert
General Hydration: appears well hydrated
Cardiovascular Exam
Cardiovascular Exam: regular rate/rhythm, no murmur and normal peripheral pulses
Pulmonary Exam
Pulmonary Exam: no respiratory distress and other (crackles b/l bases )
Neurological Exam
Neurological Exam: alert and oriented x3
Musculoskeletal Exam
Musculoskeletal Exam: other (+ swelling to feet/ ankles b/l )
Skin Exam
Skin Exam: normal color and warm/dry
Psychiatric Exam
Psychiatric Exam: normal mood/affect
Course
<MADISON Perez - Last Filed: 05/26/25 11:45>
Orders/Labs/Results
Orders:
Orders
05/26/25 08:45
Electrocardiogram (*1) Urgent
Reason for Study: Chest Pain
EKG- Treatment ONCE
05/26/25 09:30
IV Insert/Care/Rem.- Treatment PRN
05/26/25 09:31
Cardiac Monitoring- Treatment ONCE
CR Chest - 2 Views Urgent
Comment:
Reason For Exam: sob
05/26/25 10:29
Complete Blood Count/With Diff Urgent
Comprehensive Metabolic Panel Urgent
Digoxin Urgent
NT-proBNP Urgent
TSH Reflex To Free T4 Urgent
05/26/25 11:39
Furosemide [Lasix] 40 mg IV NOW STA
Abnormal Lab Results
05/26/25
10:29
MPV 10.9 H fL
(7.4-10.4)
Absolute Lymphs (auto) 1.0 L 10^3/uL
(1.2-3.4)
Lymphocytes % 15.9 L %
(20.5-51.1)
BUN 39 H mg/dl
(9-20)
Total Bilirubin 1.6 H mg/dl
(0.2-1.3)
Total Protein 6.2 L g/dl
(6.3-8.2)
05/26/25 10:29
05/26/25 10:29
Vital Signs
Initial and Last Documented VS:
Initial Vital Signs
Temp Pulse Resp BP Pulse Ox
97.5 F 56 20 178/123 97
05/26/25 08:39 05/26/25 08:39 05/26/25 08:39 05/26/25 08:39 05/26/25 08:39
Last Documented Vital Signs
Temp Pulse Resp BP Pulse Ox
97.5 F 80 18 163/111 98
05/26/25 08:39 05/26/25 11:00 05/26/25 11:00 05/26/25 11:00 05/26/25 11:00
Mental Health Orderly consulted with Physician
Mental Health Orderly consulted with physician?: Yes
Name of Physician Consulted: Kely
<Johanna Edge, DO - Last Filed: 05/26/25 11:46>
Orders/Labs/Results
Orders:
Orders
05/26/25 08:45
Electrocardiogram (*1) Urgent
Reason for Study: Chest Pain
EKG- Treatment ONCE
05/26/25 09:30
IV Insert/Care/Rem.- Treatment PRN
05/26/25 09:31
Cardiac Monitoring- Treatment ONCE
CR Chest - 2 Views Urgent
Comment:
Reason For Exam: sob
05/26/25 10:29
Complete Blood Count/With Diff Urgent
Comprehensive Metabolic Panel Urgent
Digoxin Urgent
NT-proBNP Urgent
TSH Reflex To Free T4 Urgent
05/26/25 11:39
Furosemide [Lasix] 40 mg IV NOW STA
Abnormal Lab Results
05/26/25
10:29
MPV 10.9 H fL
(7.4-10.4)
Absolute Lymphs (auto) 1.0 L 10^3/uL
(1.2-3.4)
Lymphocytes % 15.9 L %
(20.5-51.1)
BUN 39 H mg/dl
(9-20)
Total Bilirubin 1.6 H mg/dl
(0.2-1.3)
Total Protein 6.2 L g/dl
(6.3-8.2)
05/26/25 10:29
05/26/25 10:29
Vital Signs
Initial and Last Documented VS:
Initial Vital Signs
Temp Pulse Resp BP Pulse Ox
97.5 F 56 20 178/123 97
05/26/25 08:39 05/26/25 08:39 05/26/25 08:39 05/26/25 08:39 05/26/25 08:39
Last Documented Vital Signs
Temp Pulse Resp BP Pulse Ox
97.5 F 80 18 163/111 98
05/26/25 08:39 05/26/25 11:00 05/26/25 11:00 05/26/25 11:00 05/26/25 11:00
<MADISON Perez - Last Filed: 05/26/25 11:45>
MDM/Problems Addressed
Differential Diagnosis Includes:
Not limited to CHF A-fib
MDM/Problems Addressed:
As documented patient is a 55-year-old male history of A-fib CHF recent known atrial thrombus. He was scheduled to have a cardioversion last Sunday however procedure was canceled because of thrombus. He has been taking Eliquis but presents with
increasing shortness of breath lower extremity swelling. On exam he does have crackles at the bases and lower extremity swelling bilaterally however he is in no acute distress. He is in A-fib heart rate as high as 130 but remaining mostly in the
low 100s. Patient was seen by cardiology who evaluated patient and recommends admission for CHF and recommends switching Eliquis to Pradaxa to decrease clot size. X-ray and BMP reviewed consistent with CHF digoxin normal at 1.0.
Chronic conditions affecting care:
A-fib currently with atrial thrombus not a current candidate for cardioversion on Eliquis
<MADISON Perez - Last Filed: 05/26/25 11:45>
*Radiology
Radiology exam reviewed: radiology read reviewed
*Pulse Oximetry
SaO2: 97
Oxygen Mode of Delivery: Room air
Patient hypoxic: no
*EKG
Interpreted by ED Provider?: Yes
Comparison EKG: no changes
Heart Rate: 98
Rate: normal
Rhythm: a-fib
Ischemia: non-specific ST changes
*Critical Care Note
Total Time (30-74mins, 75-104mins- exclusive of procedures): Not Applicable
<MADISON Perez - Last Filed: 05/26/25 11:45>
Patient Management
Discussion with other providers: [employer] (Cardiology Dr. Franklin )
ED Attending Note
<MADISON Perez - Last Filed: 05/26/25 11:45>
-
Portions of this chart may have been created with voice recognition software.� Occasional wrong word or��sound alike� substitutions may have occurred due to the inherent limitations of voice recognition software.
<Johanna Edge DO - Last Filed: 05/26/25 11:46>
ED Attending Note
Patient seen and examined by attending physician: Yes
I performed the substantive portion of visit, reviewed & personally made and approve the management plan that is documented in note by myself or LISY.: Yes
I performed a history and physical exam of patient and discussed management with resident, I reviewed resident's note and agree with documented findings and plan of care.: Yes
ED Attending Note:
55-year-old male with history of A-fib and cardiomyopathy with CHF, known atrial thrombus, presents to the ER for persistent shortness of breath and concern of atrial fibrillation. Patient was seen here 4 days ago, scheduled to have a
cardioversion, however due to thrombus presents, procedure was not done. He has essentially been symptomatic since, follows with Dr. Lopez. He notes history of cardioversions in the past as well as ablations. He is on Eliquis, notes compliance.
He notes issues with other medications in the past, poor tolerance of beta-blockers and not candidate for calcium channel blockers due to reduced EF. Thus patient is currently on digoxin. He presents again today with persistent shortness of
breath, lower extremity swelling, and atrial fibrillation. Vital signs on arrival significant for tachycardia.
On exam patient in no acute respiratory distress. On cardiac exam, consistent with atrial fibrillation. Pulmonary exam, mild crackles at the bases with some symmetric lower extremity swelling. Suspect component of CHF to patient's symptoms, as
well as atrial fibrillation. At this time, patient remains not a candidate for cardioversion given presence of thrombus as of Sunday, 4 days ago. Plan for cardiac consultation regarding management of patient's ongoing chronic issues.
11:45 - Cardiology to bedside, notes that patient does appear to be in acute on chronic heart failure, recommending admission from a heart failure per perspective. However regarding A-fib, continue digoxin, and again no immediate plan for
cardioversion. Will start patient on IV Lasix
Discharge Plan
Departure
Prescriptions:
No Action
Eliquis 5 mg tablet
5 mg PO BID
sacubitril-valsartan [Entresto] 97-103 mg tablet
1 tab PO BID
spironolactone 50 mg tablet
50 mg PO DAILY
furosemide [Lasix] 40 mg tablet
40 mg PO DAILY Qty: 0 0RF
Jardiance 10 mg Tablet
10 mg PO DAILY Qty: 30 0RF
digoxin 250 mcg (0.25 mg) tablet
250 mcg PO DAILY Qty: 30 0RF
Referrals:
Reyes Shabazz MD [Family Provider, Internal Medicine]
Interventions
Interventions:
*Risk Screen - Suicide Last Done: 05/26/25 08:39
*General Assessment Last Done: 05/26/25 10:26
*Neglect/Abuse Screening Last Done: 05/26/25 10:26
*ED COVID-19 Vaccine History Last Done: 05/26/25 10:26
*ED Influenza Vaccine History Last Done: 05/26/25 10:26
ED- Pulmonary Assessment Last Done: 05/26/25 10:26
ED- Cardiac Assessment Last Done: 05/26/25 10:26
Discharge Date and Time
Print Language: SOUTH AFRICAN
--- NOTE | 2025-05-26 10:04 | CON.CAR ---
Addendum entered and electronically signed by Morenita Franklin MD 05/26/25 12:23:
I saw and evaluated the patient, and I provided the substantive portion of the medical decision making.
I reviewed and agree with the note by Laura WALLACE and it accurately reflects our care.
I personally performed the medical decision making of the this encounter and my assessment and plan is below:
55-year-old male who is a patient of Dr. Will with persistent atrial fibrillation and recent diagnosis of left atrial appendage thrombus on 04/21/2025 that persisted on relook RACIEL 05/22/2025, LVEF reduced to 20 to 25%, multidrug resistance
hypertension, MCKINLEY who presents for evaluation of ongoing shortness of breath. She and he endorses orthopnea and lower extremity edema. He is very frustrated as he feels like all of his issues are related to atrial fibrillation since its recurrence.
On exam, he has an irregularly irregular rate and rhythm with a normal S1-S2 no murmur rubs gallops were appreciated, lungs had bibasilar rales, extremities with 2+ pitting edema alert and oriented x 3. Telemetry shows rate controlled atrial
fibrillation at times he does jump up into the 120s 1 teens.
Labs show creatinine 1.6 proBNP 11,000, EKG atrial fibrillation with LVH and strain, compared to 05/15/2025 rate has improved. Chest x-ray imaging reviewed shows some mild cephalization but no effusions.
Assessment:
Acute heart failure reduced reduced EF
Atrial fibrillation�persistent
Persistent left atrial appendage thrombus despite compliance with Eliquis
Hypertension
Plan:
Will begin IV diuresis with Lasix 80 mg twice daily, this requires intensive monitoring.
Will see if he can tolerate propranolol for better rate control, in the past he is complained of adverse effects with metoprolol succinate and Coreg. Hopefully better rate control will help his symptoms.
Will change Eliquis to Pradaxa given persistent left atrial appendage thrombus seen on relook echo. He has no history of GI ulcer or bleeding.
Eventual relook with RACIEL prior to cardioversion at 4 weeks.
I set the expectation that while he will not feel great over the next 4 weeks, hopefully we can get him feeling better.
Original Note:
Consultation
Consultation Request
Date/Time Consultation Requested: 05/26/2025 09:45
Date/Time Consultation Performed: 05/26/2025 10:00
Requesting Provider: MADISON Brown
Performing Provider: MADISON Thurman for Dr. Franklin
Reason for Consultation: Atrial fibrillation with RVR
Medical History
-
Chief Complaint: LE swelling
History of Present Illness:
Jose Angel Harmon is a 55-year-old male (known to his primary quantitative analyst marketing, Dr. Will), with persistent atrial fibrillation (s/p cardioversion X3, ablation), LLA thrombus (identified 04/21/2025, unresolved 05/22/2025) heart failure with reduced
ejection fraction (LVEF 20-25%), multidrug resistant hypertension, MCKINLEY, and BPH presented to the ER with shortness of breath. He endorses associated lower extremity edema. The plan was for RACIEL guided cardioversion last week. This was not
performed as his TADEO thrombus is not resolved. Rate control has been challenging as he has multiple drug intolerances. He endorses orthopnea, lower extremity edema, and a 3 pound weight gain. He is not having any chest pain.
Past Medical History
Past Medical History: Arrhythmias (Persistent atrial fibrillation), CHF (HFrEF), HTN and Other (TADEO thrombus, MCKINLEY)
Social History
Tobacco: Non-Smoker
Alcohol: None
Drug: None
Living: Alone
Family History
Family History: Reviewed & Not Pertinent
Allergies / Home Medications
Allergy/AdvReac Type Severity Reaction Status Date / Time
No Known Allergies Allergy Verified 05/26/25 08:39
�Medication �Instructions �Recorded �Confirmed �Type
apixaban 5 mg tablet (Eliquis) 5 mg PO BID Blood Clot 05/03/25 05/26/25 History
Prevention/Tx
sacubitril 97 mg-valsartan 103 mg 1 tab PO BID Heart Failure 05/09/25 05/26/25 History
tablet (Entresto)
spironolactone 50 mg tablet 50 mg PO DAILY Heart Failure 05/09/25 05/26/25 History
empagliflozin 10 mg tablet 10 mg PO DAILY Heart 05/11/25 05/26/25 Rx
(Jardiance) disease/condition #30 tabs
furosemide 40 mg tablet (Lasix) 40 mg PO DAILY Heart 05/11/25 05/26/25 Rx
disease/condition #0 tabs
digoxin 250 mcg (0.25 mg) tablet 250 mcg PO DAILY #30 tabs 05/15/25 05/26/25 Rx
Review of Systems
-
History Source: Patient
All other systems: Negative unless noted
Constitutional: Fatigue
EENT: No Symptoms
Respiratory: No Symptoms
Cardiac: Palpitations
Abdomen/GI: No Symptoms
: No Symptoms
Musculoskeletal: Edema
Skin: No Symptoms
Neurological: No Symptoms
Endocrine: No Symptoms
Hematologic/Lymphatic: No Symptoms
Physical Exam
Vital Signs
Temp Pulse Resp BP Pulse Ox
97.5 F 56 20 178/123 97
05/26/25 08:39 05/26/25 08:39 05/26/25 08:39 05/26/25 08:39 05/26/25 09:19
Physical Exam
General: Well Developed, Well Nourished and No Apparent Distress
HEENT: Normocephalic, Anicteric and Moist Mucous Membranes
Respiratory: Non Labored Respirations
Cardiac: S1/S2, Irregular Rhythm and Peripheral Edema
Breast: Deferred by me
GI: Soft, Non Tender, Non Distended and Normal Bowel Sounds
Rectal: Deferred by Provider
Genito-urinary: No Costovertebral Tender
Musculoskeletal: No Clubbing and No Cyanosis
Skin: Warm and Dry
Neuro: AO x 3
Hematologic/Lymphatic: No Lymphadenopathy
Psych: Calm
Impression / Plan
-
I/P: 55M with persistent atrial fibrillation (s/p cardioversion X3, ablation), LLA thrombus (identified 04/21/2025, unresolved 05/22/2025) heart failure with reduced ejection fraction (LVEF 20-25%), multidrug resistant hypertension, MCKINLEY, and BPH
presented to the ER with shortness of breath
Primary quantitative analyst marketing: Dr. Will
EP: Dr. White
HFrEF (EF 20-25%), acute on chronic
- With worsening shortness of breath and an elevated proBNP compared to prior admission
- Recent discharge weight 62.6 kg, goal weight
- Diuresis with intravenous furosemide, this requires intensive monitoring
- GDMT as tolerated:
-BRENTON/ARB/ARNI: Sacubitril/valsartan 97-103 mg twice daily
-SGLT2 inhibitor: Jardiance 10 mg daily
-Aldosterone agonist: Spironolactone 50 mg daily
-Beta ellen: Did not tolerate metoprolol succinate or atenolol
-Isosorbide/Hydralazine:�Can consider
-ICD: Not currently indicated
- Trend daily weight, I/O, BMP with diuresis
Persistent atrial fibrillation
- Challenging to rate control given drug intolerances (metoprolol succinate, metoprolol tartrate, atenolol), try propranolol
- Digoxin level pending, would not increase given rate control
- Status post ablation 07/2022, he is interested in repeat ablation and is not interested in long-term antiarrhythmic therapy
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
- [id number]: score 2 (Heart failure, HTN)
- Plan for RACIEL guided cardioversion after 06/23/2025
TADEO thrombus
- Large thrombus identified 04/21/2025, repeat RACIEL 05/22/2025 without resolution
- Stop apixaban, start dabigatran 150 mg twice daily
- Repeat RACIEL after 4 weeks of dabigatran
Hypertension, multidrug resistant
- Trend with diuresis and changes to medical therapy
Prediabetes
MCKINLEY
Data Reviewed
-
EKG: Report Reviewed by me
Radiology: Report Reviewed by me
Medical Tests (Nuc Med, Echo etc): Report Reviewed by me
Old Records: Reviewed
[2025-05-26 10:55] LABS: Hematocrit 44.8 % (39.0-52.0); Hemoglobin 15.0 g/dL (13.0-18.0); Mean Corp Hgb Conc. 33.5 g/dL (33.0-37.0); Mean Corpuscular Volume 87.7 fL (80.0-94.0); Nucleated Red Blood Cells % 0 % (-); Platelet Count 227 10^3/uL (130-400); Red Cell Dist. Width 14.0 % (11.5-14.5)
[2025-05-26 11:27] LABS: ALT (SGPT) 38 U/L (0-50); AST (SGOT) 27 U/L (17-59); Albumin 3.6 g/dl (3.5-5.0); Alkaline Phosphatase 67 U/L (38-126); Blood Urea Nitrogen 39 mg/dl (9-20); Calcium 9.0 mg/dl (8.4-10.2); Carbon Dioxide 29 mmol/L (22-30); Chloride 105 mmol/L (98-107); Digoxin 1.0 ng/ml (0.8-2.0); Estimated Creatinine Clearance 61 ml/min; Glucose 90 mg/dl (70-99); Potassium 4.5 mmol/L (3.5-5.1); Sodium 139 mmol/L (135-145); Total Protein 6.2 g/dl (6.3-8.2); eGFR > 60.00
[2025-05-26] MEDS: INDERAL LA 60 MG PO (12:00)
[2025-05-26] MEDS: LASIX 80 MG IV ×2 (12:01→16:14)
[2025-05-26] MEDS: FLUSH (NSS) 1 FLUSH IV (12:02)
--- NOTE | 2025-05-26 15:00 | HPS.HSE ---
Addendum entered and electronically signed by Brice Castro MD 05/28/25 13:54:
Correction pr on Pradaxa and not Eliquis
Addendum entered and electronically signed by Brice Castro MD 05/26/25 17:20:
Seen and examined the patient with the resident. Agree with the plan formulated together. See changes in my documentation
Patient was seen earlier today. Late documentation
55-year-old male with shortness of breath
Patient was found to have LV thrombus in September 2024 when he went into A-fib and was not able to be cardioverted. He had a repeat echo on 10/21/2024 no left atrial appendage thrombus was seen on that study
Patient had to interrupt anticoagulation for a trauma in March, echo on 04/21/2025 showed left atrial appendage thrombus. This was repeated on 05/22/2025 which showed persistent thrombus in the left atrial appendage.
Patient is in A-fib and could not be cardioverted secondary to this. Patient states that he feels symptoms of A-fib when he was in A-fib. Patient also cannot tolerate beta-blockers
On examination mildly short of breath
Awake alert oriented
Cardiovascular system S1-S2 irregular
Chest clear to auscultation
Bilateral pedal edema noted
Abdomen slightly bloated but no tenderness
Chest x-ray reviewed by [facility]
RACIEL 05/22/2025-20 to 25% EF. Global hypokinesis. RV systolic function is moderate to severely decreased. Severely dilated LA. Thrombus in the TADEO. No pericardial effusion.
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 Will
# Acute on chronic heart failure with reduced ejection fraction
proBNP 11,000
Nonischemic cardiomyopathy with ejection fraction 30 to 35%
Diuresis
Follow intake output charting, daily weights
Patient admits to noncompliance with fluid intake-we discussed about compliance with fluid intake
Continue goal-directed medical therapy with Jardiance, Entresto, Aldactone. Propranolol started now as he could not tolerate other GDMT- beta-blockers
Weight today on standing scale done by us in the ER 64.7(stretcher scale documented by ER is wrong). Last weight at discharge was 62.6.
# Persistent atrial fibrillation
History of multiple cardioversions and history of ablation 2021
Patient was found to have LV thrombus in September 2024 when he went into A-fib and was not able to be cardioverted. He had a repeat echo on 10/21/2024 no left atrial appendage thrombus was seen on that study
Patient had to interrupt anticoagulation for a trauma in March, echo on 04/21/2025 showed left atrial appendage thrombus. This was repeated on 05/22/2025 which showed persistent thrombus in the left atrial appendage.
Patient is in A-fib and could not be cardioverted secondary to this. Patient states that he feels symptoms of A-fib when he was in A-fib. Patient also cannot tolerate beta-blockers
Likely not a failure of Eliquis as thrombus may take time to resolve
Anticoagulation changed from Eliquis to Pradaxa per cardiology
Eventual repeat RACIEL and cardioversion when thrombus goes away
Continue digoxin, propranolol started.
Patient states that he cannot tolerate metoprolol, carvedilol or atenolol
# Sleep apnea-continue CPAP
# History of nephrolithiasis
# DVT prophylaxis-Eliquis
# Full code
Discussed with cardiology
Discussed with ex- at bedside
Time spent more than 75 minutes
Original Note:
Family Physician
-
Family Physician: Reyes Shabazz MD
Chief Complaint
-
Shortness of breath with increased lower extremity swelling
History of Present Illness
Patient is a 54-year-old male with a past medical history of nonischemic cardiomyopathy with HFrEF with an ejection fraction of 20 to 25% based on RACIEL conducted on 05/22/2025, symptomatic atrial fibrillation with rapid ventricular response, multidrug
resistant hypertension, and obstructive sleep apnea who presented with shortness of breath and increasing lower extremity swelling. Patient was very anxious that his atrial fibrillation has not resolved and multiple times during the encounter
mention worries of sequela and lower quality of life secondary to heart failure. He complained of poor sleep and contributes his reduced sleep to his anxiety over the trajectory of his heart failure. The patient has been admitted to the hospital
twice recently for atrial fibrillation with rapid ventricular response with the last discharge being on 05/15/2025. Patient got his last ablation in July 2022 and had a cardioversion in October 2024 after the resolution of a thrombus. Patient had
a new atrial thrombus identified on 04/21/2025 and had planned for a repeat cardioversion on 05/19. Unfortunately when the patient presented for repeat cardioversion a thrombus was found in the left atrium and the cardioversion was deferred. He has
been symptomatic since his planned cardioversion and presents to the emergency department with ongoing shortness of breath with lower extremity swelling bilaterally. Patient states that he has been on Eliquis consistently but was off of Eliquis in
March for about 7 to 5 days because of rib fracture while surfing. In the emergency department the patient was found to be hypertensive with systolic blood pressures fluctuating between 178 to the upper 150s. Patient had a proBNP of 11,000. TSH
was within normal limits. Digoxin level at 1.0 which was therapeutic. Total bilirubin elevated at 1.6. Patient was admitted to [facility] for acute on chronic HFrEF with an ejection fraction of 20 to 25%.
Medical History
Past Medical History
Past Medical History: Reports Arrhythmia, CHF and HTN
Past Surgical History: Reports None
Social History
Tobacco: Non-smoker
Alcohol: None
Personal:
Living: Alone
Family History
Family History: Other (Father with CHF)
Allergies / Home Medications
Allergies reflects when Allergies were last updated in [employer].
Home Medications with original date entered in [employer]
Allergy/Medication List:
Allergies
Allergy/AdvReac Type Severity Reaction Status Date / Time
No Known Allergies Allergy Verified 05/26/25 08:39
Home Medications
apixaban 5 mg tablet (Eliquis) 5 mg PO BID Blood Clot Prevention/Tx 05/03/25
sacubitril 97 mg-valsartan 103 mg tablet (Entresto) 1 tab PO BID Heart Failure 05/09/25
spironolactone 50 mg tablet 50 mg PO DAILY Heart Failure 05/09/25
empagliflozin 10 mg tablet (Jardiance) 10 mg PO DAILY Heart disease/condition #30 tabs 05/11/25
furosemide 40 mg tablet (Lasix) 40 mg PO DAILY Heart disease/condition #0 tabs 05/11/25
digoxin 250 mcg (0.25 mg) tablet 250 mcg PO DAILY #30 tabs 05/15/25
Review of Systems
-
History Source: Patient
A 12 point ROS was completed and negative except as noted: Yes
Constitutional: Reports See HPI, Weight Gain, Fatigue and Sleep Disturbance
EENT: Reports No Symptoms
Respiratory: Reports See HPI and Cough (Dry cough)
Cardiac: Reports See HPI, Diaphoresis and Palpitations
: Reports Frequency
Musculoskeletal: Reports No Symptoms
Skin: Reports No Symptoms
Neurological: Reports No Symptoms
Endocrine: Reports No Symptoms
Hematologic/Lymphatic: Reports No Symptoms
Psych: Reports Anxiety
Physical Exam
Vital Signs
Vital Signs
Temp Pulse Resp BP Pulse Ox
97.5 F 104 16 157/123 96
05/26/25 08:39 05/26/25 14:45 05/26/25 14:30 05/26/25 14:20 05/26/25 14:45
Physical Exam
General: Well Developed, Well Nourished and Conversant
HEENT: NormoCephalic, Anicteric and Atraumatic
Respiratory: Clear
Cardiac: S1/S2, Irregular Rhythm, Tachycardia and Peripheral Edema (1+ bilaterally of lower limbs); No Murmur, Rub, Gallop, JVD or HJR
GI: Non Distended
Genito-urinary: Deferred by me
Musculoskeletal: Edema, Left Lower Extremity (1+) and Edema, Right Lower Extremity (1+); No No Clubbing
Skin: Warm and Dry; No Rash, Jaundice, Ulcers, Lesions or Decubitus Ulcers
Neuro: Awake, Alert, Oriented and AO x 3
Hematologic/Lymphatic: No Lymphadenopathy
Psych: Anxious
Laboratory Results
-
05/26/25 10:
05/26/25:
Laboratory Results
Total Bilirubin 1.6 mg/dl (0.2-1.3) H 05/26/25 10:
AST 27 U/L (17-59) 05/26/25 10:
ALT 38 U/L (0-50) 05/26/25:
Alkaline Phosphatase 67 U/L (38-126) 05/26/25:
Impression/Plan
-
Assessment/Plan:
-Acute on chronic HFrEF with an ejection fraction of 20 to 25%: Unresolved
RACIEL conducted on 05/22/2025 determined that the patient had an ejection fraction of 20 to 25%. The patient was slated to undergo a cardioversion at that time but unfortunately a thrombus was found in the left atrium which was a contraindication to
undergoing cardioversion.
Patient had a proBNP of 11,000 in the emergency department
EKG in the emergency department showed atrial fibrillation with left ventricular hypertrophy and strain compared to prior EKG
Chest x-ray conducted in the emergency department showed signs of possible congestion secondary to heart failure
Dry weight is approximately 62.65 kg measured on standing scale on 05/04/2025 -measured weight in the emergency department was 64.7 kg
Cardiology following�appreciate cardiology recommendations
Will initiate GDMT as tolerated�sacubitril�valsartan 97-103 mg twice daily, Jardiance 10 mg daily, Spironolactone 50 mg daily, propranolol 40 mg p.o. twice daily, and may consider isosorbide/hydralazine
Diuresis with Lasix 80 mg IV twice daily
Trend daily weight with I's and O's
CMP with diuresis
-Symptomatic Persistent atrial fibrillation with RVR: Unresolved
Patient immediately feels fatigue and lower functionality when in atrial fibrillation. Patient can feel the palpitations and is aware when he goes in and out of atrial fibrillation
Patient admitted to telemetry
Propranolol 40 mg orally twice daily initiated
Digoxin level at 1.0�therapeutic
Patient unfortunately has a persistent thrombus despite consistent apixaban use�agent changed to dabigatran 150mg BID
Patient has a [id number] score of 2
Cardiology has tentatively plan for possible RACIEL guided cardioversion after 06/23/2025
-Persistent left atrial appendage thrombus despite compliance with Eliquis: Stable/monitoring
Patient had evidence of layered thrombus in the left atrial appendage found on RACIEL on 10/01/2024. Repeat RACIEL on 10/21/24 showed no left atrial appendage thrombus and the patient was cardioverted that day.
Large thrombus was identified on RACIEL on 04/21/2025, repeat RACIEL on 05/22/2025 continue to show TADEO thrombus without resolution
Patient unfortunately has a persistent thrombus despite consistent apixaban use�agent changed to dabigatran 150mg BID
Patient has a [id number] score of 2
Cardiology has tentatively plan for possible RACIEL guided cardioversion after 06/23/2025 (4 weeks approximately)
-Resistant hypertension: Unresolved
IV Lasix 80 mg twice daily
Fine-tune medications once patient is no longer fluid overloaded
-Obstructive sleep apnea: Monitoring/stable
Nightly CPAP
CODE STATUS: FULL CODE STATUS
DVT Prophylaxis: Dabigatran
Imaging:
-Chest x-ray conducted on 05/15/2025:
The heart is enlarged. Pulmonary vasculature is top normal. There is no focal consolidation or pleural effusion. There is hyperaeration.
There are mild degenerative changes in the thoracic spine
-Chest x-ray conducted on 05/26/2025:
Findings are unchanged from the prior study. There is no acute pneumonia.
Findings could be related to chronic congestive heart failure.
Procedures:
- Transesophageal echocardiogram conducted on 05/22/2025:
1. Left ventricular ejection fraction is severely reduced. Ejection fraction is 20-25% by visual assessment. Global hypokinesis.
2. Right ventricular systolic function is moderately to severely decreased.
3. Severely dilated left atrium left atrium. There is thrombus noted within the left atrial appendage.
4. No evidence of pericardial effusion.
5. No cardioversion performed.
-EKG conducted on 05/26/2025:
ATRIAL FIBRILLATION
LEFT AXIS DEVIATION
LEFT VENTRICULAR HYPERTROPHY WITH REPOLARIZATION ABNORMALITY ( Sokolow-Barkley ,[place] product , Romhilt-Clayton )
ABNORMAL ECG
WHEN COMPARED WITH ECG OF 15-May-2025 07:37, NO SIGNIFICANT CHANGE WAS FOUND
--- NOTE | 2025-05-26 16:21 | EDCM ---
CM reviewed chart and met with patient bedside in ED. Pt lives alone in second floor walk up apartment., [address]
Independent in ADLs, personal care and ambulation at baseline. No assistive devices, no DME.
His mother and sister leave nearby in the house he grew up in, he spends a lot of time there.
He is supposed to have a cardioversion next month.
Confirms prescription coverage.
No hx VN or SNF.
PCP: Reyes Shabazz
Pharmacy: [facility]
Anticipate discharge home, CM will continue to follow for any discharge planning needs.
[2025-05-26] MEDS: ZOFRAN 4 MG PO (17:12)
--- NOTE | 2025-05-26 18:03 | PTCARENOTE ---
Arrived to unit and ambulated to bed without assistance. Controlled Afib on tele. Oriented to room. Call villalpando within reach.
[2025-05-26] MEDS: TYLENOL 500 MG PO (19:42)
[2025-05-26] MEDS: PRADAXA 150 MG PO (19:43)
[2025-05-26] MEDS: ENTRESTO 97 MG/103 MG 1 TAB PO (19:44)
[2025-05-27] VITALS (8 sets, daily range): BP systolic 150–172; BP diastolic 107–118; PULSE 60; O2SAT 99; BMI 21.5
--- NOTE | 2025-05-27 05:33 | PTCARENOTE ---
pt afib on tele. pt having pauses throughout night dropping HR to high 30s, longest pause 2.5 seconds. bradycardia does not sustain, recovering to 60s-80s. pt asymptomatic, denies dizziness or lightheadedness. pt BP 150s/100s throughout night. pt
asymptomatic, denies CP and palpitations as well. 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 plan of care ongoing.
[2025-05-27] MEDS: LASIX 80 MG IV ×2 (08:47→15:53)
[2025-05-27] MEDS: PRADAXA 150 MG PO ×2 (08:48→20:03)
[2025-05-27] MEDS: FARXIGA 10 MG PO (08:55)
[2025-05-27] MEDS: ENTRESTO 97 MG/103 MG 1 TAB PO ×2 (08:55→20:03)
[2025-05-27] MEDS: ALDACTONE 50 MG PO (08:55)
--- NOTE | 2025-05-27 09:22 | W.PN.HOSP.TC ---
Addendum entered and electronically signed by Brice Castro MD 05/28/25 13:54:
Correction pr on Pradaxa and not Eliquis
Addendum entered and electronically signed by Brice Castro MD 05/27/25 14:02:
Seen and examined the patient with the resident. Agree with the plan formulated together. See changes in my documentation
Patient was seen earlier today. Late documentation
55-year-old male with shortness of breath
Patient was found to have LV thrombus in September 2024 when he went into A-fib and was not able to be cardioverted. He had a repeat echo on 10/21/2024 no left atrial appendage thrombus was seen on that study
Patient had to interrupt anticoagulation for a trauma in March, echo on 04/21/2025 showed left atrial appendage thrombus. This was repeated on 05/22/2025 which showed persistent thrombus in the left atrial appendage.
Patient is in A-fib and could not be cardioverted secondary to this. Patient states that he feels symptoms of A-fib when he was in A-fib. Patient also cannot tolerate beta-blockers
On examination mildly short of breath
Awake alert oriented
Cardiovascular system S1-S2 irregular
Chest clear to auscultation
Bilateral pedal edema noted
Abdomen slightly bloated but no tenderness
Chest x-ray reviewed by [facility]-CHF
RACIEL 05/22/2025-20 to 25% EF. Global hypokinesis. RV systolic function is moderate to severely decreased. Severely dilated LA. Thrombus in the TADEO. No pericardial effusion.
Primary paving stone installer is Dr. Will
# Acute on chronic heart failure with reduced ejection fraction
proBNP 11,000
Nonischemic cardiomyopathy with ejection fraction 30 to 35%
Diuresis
Follow intake output charting, daily weights
Patient admits to noncompliance with fluid intake-we discussed about compliance with fluid intake
Continue goal-directed medical therapy with Jardiance, Entresto, Aldactone. Propranolol started now as he could not tolerate other GDMT- beta-blockers
Weight today on standing scale done by us in the ER 64.7(stretcher scale documented by ER is wrong). Last weight at discharge was 62.6.
Weight on the floor yesterday was up, not sure which one was his true weight. ( Had 3 diff weights yesterday)
Continue diuresis
# Persistent atrial fibrillation
History of multiple cardioversions and history of ablation 2021
Patient was found to have LV thrombus in September 2024 when he went into A-fib and was not able to be cardioverted. He had a repeat echo on 10/21/2024 no left atrial appendage thrombus was seen on that study
Patient had to interrupt anticoagulation for a trauma in March, echo on 04/21/2025 showed left atrial appendage thrombus. This was repeated on 05/22/2025 which showed persistent thrombus in the left atrial appendage.
Patient is in A-fib and could not be cardioverted secondary to this. Patient states that he feels symptoms of A-fib when he was in A-fib. Patient also cannot tolerate beta-blockers
Likely not a failure of Eliquis as thrombus may take time to resolve
Anticoagulation changed from Eliquis to Pradaxa per cardiology
Eventual repeat RACIEL and cardioversion when thrombus goes away
Continue digoxin, propranolol started.
Patient states that he cannot tolerate metoprolol, carvedilol or atenolol
# Sleep apnea-continue CPAP
# History of nephrolithiasis
# DVT prophylaxis-Eliquis
# Full code
Part of this note was created using voice recognition system. Occasional wrong word or��sound alike� substitutions may have inadvertently occurred due to the inherent limitations of voice recognition software. If noted kindly bring it to my
attention for correction.
Original Note:
Today's Communication/Plan
-
Continue diuresis
Appreciate cardiology recommendations
Assessment / Plan
Assessment / Plan
Assessment/Plan:
-Acute on chronic HFrEF with an ejection fraction of 20 to 25%: Unresolved
RACIEL conducted on 05/22/2025 determined that the patient had an ejection fraction of 20 to 25%. The patient was slated to undergo a cardioversion at that time but unfortunately a thrombus was found in the left atrium which was a contraindication to
undergoing cardioversion.
Patient had a proBNP of 11,000 in the emergency department
EKG in the emergency department showed atrial fibrillation with left ventricular hypertrophy and strain compared to prior EKG
Chest x-ray conducted in the emergency department showed signs of possible congestion secondary to heart failure
Dry weight is approximately 62.65 kg measured on standing scale on 05/04/2025 -measured weight in the emergency department was 64.7 kg
Cardiology following�appreciate cardiology recommendations
Will initiate GDMT as tolerated�sacubitril�valsartan 97-103 mg twice daily, Jardiance 10 mg daily, Spironolactone 50 mg daily, propranolol 40 mg p.o. twice daily, and may consider isosorbide/hydralazine
Diuresis with Lasix 80 mg IV twice daily
Trend daily weight with I's and O's
CMP with diuresis
-Symptomatic Persistent atrial fibrillation with RVR: Unresolved
Patient immediately feels fatigue and lower functionality when in atrial fibrillation. Patient can feel the palpitations and is aware when he goes in and out of atrial fibrillation
Patient admitted to telemetry
Propranolol 40 mg orally twice daily initiated
Digoxin level at 1.0�therapeutic
Patient unfortunately has a persistent thrombus despite consistent apixaban use�agent changed to dabigatran 150mg BID
Patient has a [id number] score of 2
Cardiology has tentatively plan for possible RACIEL guided cardioversion after 06/23/2025
-Persistent left atrial appendage thrombus despite compliance with Eliquis: Stable/monitoring
Patient had evidence of layered thrombus in the left atrial appendage found on RACIEL on 10/01/2024. Repeat RACIEL on 10/21/24 showed no left atrial appendage thrombus and the patient was cardioverted that day.
Large thrombus was identified on RACIEL on 04/21/2025, repeat RACIEL on 05/22/2025 continue to show TADEO thrombus without resolution
Patient unfortunately has a persistent thrombus despite consistent apixaban use�agent changed to dabigatran 150mg BID
Patient has a [id number] score of 2
Cardiology has tentatively plan for possible RACIEL guided cardioversion after 06/23/2025 (4 weeks approximately)
-Resistant hypertension: Unresolved
IV Lasix 80 mg twice daily
Fine-tune medications once patient is no longer fluid overloaded
-Obstructive sleep apnea: Monitoring/stable
Nightly CPAP
CODE STATUS: FULL CODE STATUS
DVT Prophylaxis: Dabigatran
Imaging:
-Chest x-ray conducted on 05/15/2025:
The heart is enlarged. Pulmonary vasculature is top normal. There is no focal consolidation or pleural effusion. There is hyperaeration.
There are mild degenerative changes in the thoracic spine
-Chest x-ray conducted on 05/26/2025:
Findings are unchanged from the prior study. There is no acute pneumonia.
Findings could be related to chronic congestive heart failure.
Procedures:
- Transesophageal echocardiogram conducted on 05/22/2025:
1. Left ventricular ejection fraction is severely reduced. Ejection fraction is 20-25% by visual assessment. Global hypokinesis.
2. Right ventricular systolic function is moderately to severely decreased.
3. Severely dilated left atrium left atrium. There is thrombus noted within the left atrial appendage.
4. No evidence of pericardial effusion.
5. No cardioversion performed.
-EKG conducted on 05/26/2025:
ATRIAL FIBRILLATION
LEFT AXIS DEVIATION
LEFT VENTRICULAR HYPERTROPHY WITH REPOLARIZATION ABNORMALITY ( Sokolow-Barkley ,[place] product , Romhilt-Clayton )
ABNORMAL ECG
WHEN COMPARED WITH ECG OF 15-May-2025 07:37, NO SIGNIFICANT CHANGE WAS FOUND
Anticipated Discharge: 24 - 48 hours
Subjective/Interval History
-
Date of Service: May 27, 2025
Met with patient at the bedside. He states that he had a interrupted sleep and felt like he had somewhat fluid in his lungs. This morning he is breathing a bit easier. Patient is still anxious and worried about his health course.
Objective Data
-
Labs:
Laboratory Results
05/27/25
08:20
WBC Pending
Hgb Pending
Hct Pending
Plt Count Pending
Sodium Pending
Potassium Pending
Chloride Pending
Carbon Dioxide Pending
BUN Pending
Creatinine Pending
Glucose Pending
Calcium Pending
Total Bilirubin Pending
AST Pending
ALT Pending
Alkaline Phosphatase Pending
Vital Signs:
Vital Signs
Temp Pulse Resp BP Pulse Ox
98.1 F 67 18 158/107 98
05/27/25 07:52 05/27/25 08:55 05/27/25 07:52 05/27/25 08:55 05/27/25 07:52
I&O
05/26/25 05/27/25 05/28/25
06:59 06:59 06:59
Intake Total 480 / 480
Output Total 650 / 650
Balance -170 / -170
Review of Systems
-
History Source: Patient
Constitutional: Reports Other (difficulty sleeping)
Respiratory: Reports Cough
Cardiac: Reports Palpitations
Abdomen/GI: Reports No Symptoms
Breast: Reports No Symptoms
Genitourinary: Reports No Symptoms
Musculoskeletal: Reports Edema (Bilateral lower extremity edema)
Skin: Reports No Symptoms
Neuro: Reports No Symptoms
Endocrine: Reports No Symptoms
Hematologic / Lymphatic: Reports No Symptoms
Physical Exam
-
General: Well Developed, Well Nourished, No Apparent Distress and Conversant
HEENT: Normocephalic, Atraumatic, Moist Mucous Membranes and Anicteric
Respiratory: Clear to Auscultation and Non Labored Respirations; Negative Wheezes, Rales, Rhonchi or Crackles
Cardiac: S1/S2 and Irregular Rhythm; Negative Murmur, Rub or JVD
GI: Soft, Nontender, Nondistended and Normal Bowel Sounds
Rectal: Deferred by Provider
Genito-urinary: Deferred by me
Musculoskeletal: No Clubbing, No Cyanosis, Edema, Right Lower Extrem (1+) and Edema, Left Lower Extrem (1+)
Skin: Warm, Dry and Normal Turgor; Negative Rash, Ulcers, Lesions, Jaundice or Decubitus Ulcers
Neuro: Awake, Alert, Oriented and AO x 3
Psych: Intact Judgement/Insight and Anxious
[2025-05-27 09:35] LABS: Hematocrit 45.6 % (39.0-52.0); Hemoglobin 15.1 g/dL (13.0-18.0); Mean Corp Hgb Conc. 33.1 g/dL (33.0-37.0); Mean Corpuscular Volume 88.0 fL (80.0-94.0); Platelet Count 216 10^3/uL (130-400); Red Cell Dist. Width 13.9 % (11.5-14.5)
--- NOTE | 2025-05-27 09:41 | W.PN.CD ---
Today's Communication / Plan
-
continue diuresis
add compression
continue propranolol
Impression / Plan
-
I/P: 55M with persistent atrial fibrillation (s/p cardioversion X3, ablation), LLA thrombus (identified 04/21/2025, unresolved 05/22/2025) heart failure with reduced ejection fraction (LVEF 20-25%), multidrug resistant hypertension, MCKINLEY, and BPH
presented to the ER with shortness of breath
Primary roustabout supervisor: Dr. Will
EP: Dr. White
HFrEF (EF 20-25%), acute on chronic
- With worsening shortness of breath and an elevated proBNP compared to prior admission
- Recent discharge weight 62.6 kg, goal weight
- Diuresis with intravenous furosemide, this requires intensive monitoring
- GDMT as tolerated:
-BRENTON/ARB/ARNI: Sacubitril/valsartan 97-103 mg twice daily
-SGLT2 inhibitor: Jardiance 10 mg daily
-Aldosterone agonist: Spironolactone 50 mg daily
-Beta ellen: Did not tolerate metoprolol succinate or atenolol, trialling propranolol.
-Isosorbide/Hydralazine:�Can consider
-ICD: Not currently indicated
- Trend daily weight, I/O, BMP with diuresis
Persistent atrial fibrillation
- Challenging to rate control given drug intolerances (metoprolol succinate, metoprolol tartrate, atenolol), improved with propranolol
- continue dig
- parsanth rates when sleeping, ok to continue bb
- Status post ablation 07/2022, he is interested in repeat ablation and is not interested in long-term antiarrhythmic therapy
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
- [id number]: score 2 (Heart failure, HTN)
- Plan for RACIEL guided cardioversion after 06/23/2025
TADEO thrombus
- Large thrombus identified 04/21/2025, repeat RACIEL 05/22/2025 without resolution
- Stop apixaban, start dabigatran 150 mg twice daily
- Repeat RACIEL after 4 weeks of dabigatran
Hypertension, multidrug resistant
- Trend with diuresis and changes to medical therapy
Prediabetes
MCKINLEY
Physical Exam
Vital Signs/Labs
Vital Signs
Temp Pulse Resp BP Pulse Ox
98.1 F 67 18 158/107 98
05/27/25 07:52 05/27/25 08:55 05/27/25 07:52 05/27/25 08:55 05/27/25 07:52
05/26/25 05/27/25 05/28/25
06:59 06:59 06:59
Actual Weight 141 lb 9 oz
05/27/25 08:20
Digoxin 1.0 ng/ml (0.8-2.0) 05/26/25 10:29
05/26/25
10:29
Tvo-[id number]-[id number] Pept [id number]
Physical Exam
Constitutional: No acute distress
Cardiovascular: Rhythm & rate is regular, Pedal edema is absent, JVD pressure is normal, Systolic murmur absent and Diastolic murmur absent
Respiratory: Respiratory effort normal, Lungs clear to auscul., Wheeze Absent, Crackles Absent, Rhonchi Absent and Labored respirations
Neuro/Psych: AO x 3
Data Reviewed
-
Date of Service: May 27, 2025
Medical Decision Making: Review of Case with other Provider (Dr Lockett, given propranolol, continue diuresis)
EKG: Other (af with improved rate control)
[2025-05-27 10:03] LABS: ALT (SGPT) 34 U/L (0-50); AST (SGOT) 25 U/L (17-59); Albumin 3.3 g/dl (3.5-5.0); Alkaline Phosphatase 74 U/L (38-126); Blood Urea Nitrogen 36 mg/dl (9-20); Calcium 8.6 mg/dl (8.4-10.2); Carbon Dioxide 25 mmol/L (22-30); Chloride 106 mmol/L (98-107); Estimated Creatinine Clearance 57 ml/min; Glucose 89 mg/dl (70-99); HDL Cholesterol 32 mg/dl; LDL Cholesterol, Calculated 101 mg/dl; Magnesium 2.4 mg/dl (1.6-2.3); Potassium 4.3 mmol/L (3.5-5.1); Sodium 138 mmol/L (135-145); Total Protein 5.8 g/dl (6.3-8.2); Very Low Density Lipoprotein 17 mg/dl (0-30); eGFR > 60.00
--- NOTE | 2025-05-27 10:09 | PTOTSP ---
PATIENT INDEPENDENT WITH MOBILITY AND FEELS THAT HE WILL HAVE NO ISSUE WITH ELEVATIONS. PATIENT EDUCATION ON ENERGY CONSERVATION TECHNIQUES WITH MOBILITY/ELEVATIONS AND APPEARED TO VERBALIZE UNDERSTANDING AND STATES THAT AT TIME HE HAS ALREADY
IMPLEMENTED SOME. PATIENT INDEPENDENT AND DOES NOT FEEL THE NEED FOR ACUTE CARE SKILLED P.T. AT THIS TIME. AT SOME JUNCTURE, CARDIAC REHAB MAY BE INDICATED FOR THIS PREVIOUSLY ATHLETIC AND YOUNG PATIENT. WILL DISCHARGE FROM P.T. SERVICES.
[2025-05-27] MEDS: LANOXIN 250 MCG PO (12:02)
[2025-05-27] MEDS: INDERAL LA 60 MG PO (12:03)
--- NOTE | 2025-05-27 13:52 | PTCARENOTE ---
Patient HR ranging from 50-60 pre propanolol and digoxin admin. Dr. Franklin made aware and ordered to still administer doses. HR dipping to 38 post admin. Patient asymptomatic.
[2025-05-27] MEDS: ZOFRAN 4 MG PO (14:49)
--- NOTE | 2025-05-27 15:56 | CM ---
Reviewed chart. Met with pt bedside. Continues with IV lasix and compression stockings. On room air.
Plan: DC home with no needs
[2025-05-28 00:58] VITALS: BP 155/103
[2025-05-28 03:24] VITALS: BP 161/108
--- NOTE | 2025-05-28 05:28 | PTCARENOTE ---
pt afib on tele. pt having pauses throughout night dropping HR to high 30s, longest pause 3.45 seconds. low HR does not sustain, recovering to 60s-80s. pt asymptomatic, denies dizziness or lightheadedness. BAG BUILDER made aware, no new orders at this
time. plan of care ongoing.
[2025-05-28 06:00] VITALS: BMI 21.3
[2025-05-28 07:15] VITALS: BP 162/104
--- NOTE | 2025-05-28 07:30 | W.PN.HOSP.TC ---
Today's Communication/Plan
-
Patient had left upper extremity weakness at approximately 0711 hours and a stroke alert was called. Patient taken to CTA under stroke alert protocol. Upon returning from CT left facial droop was noted.
CTA negative for vascular occlusion, aneurysm, or dissection
Patient is a NIH stroke scale of 7-8
It is is possibility of thrombus not being seen on imaging - TADEO Thrombus may have embolized. MRI of osage of [place] ordered
Patient to be transferred to [facility] for further management of acute stroke symptoms and acute on chronic HFrEF with ejection fraction of 20 to 25% - Risks and benefits of transfer explained to patient. Family notified by patient.
Assessment / Plan
Assessment / Plan
Assessment/Plan:
-Acute Stroke: Unresolved
Patient had left upper extremity weakness at approximately 0711 hours and a stroke alert was called. Patient taken to CTA under stroke alert protocol. Upon returning from CT left facial droop was noted.
CTA negative for vascular occlusion, aneurysm, or dissection
Patient is a NIH stroke scale of 7-8
It is is possibility of thrombus not being seen on imaging - TADEO Thrombus may have embolized. MRI of osage of [place] ordered
Patient to be transferred to [facility] for further management of acute stroke symptoms and acute on chronic HFrEF with ejection fraction of 20 to 25% - Risks and benefits of transfer explained to patient. Family notified by patient.
-Acute on chronic HFrEF with an ejection fraction of 20 to 25%: Unresolved
RACIEL conducted on 05/22/2025 determined that the patient had an ejection fraction of 20 to 25%. The patient was slated to undergo a cardioversion at that time but unfortunately a thrombus was found in the left atrium which was a contraindication to
undergoing cardioversion.
Patient had a proBNP of 11,000 in the emergency department
EKG in the emergency department showed atrial fibrillation with left ventricular hypertrophy and strain compared to prior EKG
Chest x-ray conducted in the emergency department showed signs of possible congestion secondary to heart failure
Dry weight is approximately 62.65 kg measured on standing scale on 05/04/2025 -measured weight in the emergency department was 64.7 kg
Cardiology following�appreciate cardiology recommendations
Will initiate GDMT as tolerated�sacubitril�valsartan 97-103 mg twice daily, Jardiance 10 mg daily, Spironolactone 50 mg daily, propranolol 40 mg p.o. twice daily, and may consider isosorbide/hydralazine
Diuresis with Lasix 80 mg IV twice daily
Trend daily weight with I's and O's
CMP with diuresis
-Symptomatic Persistent atrial fibrillation with RVR: Unresolved
Patient immediately feels fatigue and lower functionality when in atrial fibrillation. Patient can feel the palpitations and is aware when he goes in and out of atrial fibrillation
Patient admitted to telemetry
Propranolol 40 mg orally twice daily initiated
Digoxin level at 1.0�therapeutic
Patient unfortunately has a persistent thrombus despite consistent apixaban use�agent changed to dabigatran 150mg BID
Patient has a [id number] score of 2
Cardiology has tentatively plan for possible RACIEL guided cardioversion after 06/23/2025
-Persistent left atrial appendage thrombus despite compliance with Eliquis: Stable/monitoring
Patient had evidence of layered thrombus in the left atrial appendage found on RACIEL on 10/01/2024. Repeat RACIEL on 10/21/24 showed no left atrial appendage thrombus and the patient was cardioverted that day.
Large thrombus was identified on RACIEL on 04/21/2025, repeat RACIEL on 05/22/2025 continue to show TADEO thrombus without resolution
Patient unfortunately has a persistent thrombus despite consistent apixaban use�agent changed to dabigatran 150mg BID
Patient has a [id number] score of 2
Cardiology has tentatively plan for possible RACIEL guided cardioversion after 06/23/2025 (4 weeks approximately)
-Resistant hypertension: Unresolved
IV Lasix 80 mg twice daily
Fine-tune medications once patient is no longer fluid overloaded
-Obstructive sleep apnea: Monitoring/stable
Nightly CPAP
CODE STATUS: FULL CODE STATUS
DVT Prophylaxis: Dabigatran
Imaging:
-Chest x-ray conducted on 05/15/2025:
The heart is enlarged. Pulmonary vasculature is top normal. There is no focal consolidation or pleural effusion. There is hyperaeration.
There are mild degenerative changes in the thoracic spine
-Chest x-ray conducted on 05/26/2025:
Findings are unchanged from the prior study. There is no acute pneumonia.
Findings could be related to chronic congestive heart failure.
-Head CT conducted on 05/28/2025:
The ventricles are normal in size, configuration, and position for age. There is no intra- or extra-axial mass, hemorrhage, or fluid collection. No areas of abnormal mass effect or attenuation are noted. Right sphenoid sinus mucus retention
cyst. No depressed calvarial fracture.
-Head/neck CTA conducted on 05/28/2025:
There are no vascular occlusions observed.
The bilateral common and internal carotid arteries are grossly patent without any significant calcific plaque in the carotid bulbs bilaterally.
Codominant vertebral arteries. The vertebral arteries, basilar artery and basilar artery bifurcation are normal. The posterior communicating arteries are not visualized on the source images.
The internal carotid artery bifurcations, the middle cerebral artery bifurcation/trifurcation regions and the anterior communicating artery region appears normal. The posterior cerebral arteries appear intact in the visualized segments.
The brain parenchyma is normal. The ventricles, basal cisterns, and sulci over the convexities are normal.
The orbits and bony calvarium are normal. The visualized paranasal sinuses are unremarkable.
The sella turcica and cavernous sinus regions appear intact. The mastoid air cells are normal.
The fossa of Rosenmuller is normal. The parotid space contents and office aide space contents appear intact. The parapharyngeal spaces are normal. The submandibular and sublingual space contents appear intact. The submental space is intact.
The epiglottis, aryepiglottic folds, and piriform sinuses are normal. The vallecula appears normal. The larynx and trachea are normal. The esophagus appears intact. The thyroid is unremarkable.
The carotid space contents are normal. There is no deep cervical chain adenopathy observed. The jugulodigastric regions appear intact.
The perivertebral space contents are normal. The supraclavicular regions appear intact. The visualized mediastinum and lungs appear intact. Mild degenerative changes of the cervical spine.
IMPRESSION: No significant vascular occlusion, aneurysm or dissection.
Procedures:
- Transesophageal echocardiogram conducted on 05/22/2025:
1. Left ventricular ejection fraction is severely reduced. Ejection fraction is 20-25% by visual assessment. Global hypokinesis.
2. Right ventricular systolic function is moderately to severely decreased.
3. Severely dilated left atrium left atrium. There is thrombus noted within the left atrial appendage.
4. No evidence of pericardial effusion.
5. No cardioversion performed.
-EKG conducted on 05/26/2025:
ATRIAL FIBRILLATION
LEFT AXIS DEVIATION
LEFT VENTRICULAR HYPERTROPHY WITH REPOLARIZATION ABNORMALITY ( Sokolow-Barkley ,Herberth product , Romhilt-Clayton )
ABNORMAL ECG
WHEN COMPARED WITH ECG OF 15-May-2025 07:37, NO SIGNIFICANT CHANGE WAS FOUND
Anticipated Discharge: > 48 hours
Subjective/Interval History
-
Date of Service: May 28, 2025
Met with patient at the bedside. At the time that I met the patient stroke alert had already been called and the patient returned back from CT scan. Patient was anxious and showing obvious signs of left-sided pronator drift and mild facial
drooping. Patient anxious and worried about his disposition. Patient denies any nausea vomiting or diarrhea. Patient endorses left upper extremity weakness. Patient is unable to use his left hand to write or open. Wrist droop appreciated.
Patient amenable to transfer to [facility].
Objective Data
-
Labs:
Laboratory Results
05/28/25
07:11
WBC 7.1
Hgb 14.7
Hct 45.1
Plt Count 217
Sodium 138
Potassium 3.9
Chloride 103
Carbon Dioxide 31 H
BUN 39 H
Creatinine 1.3
Glucose 93
Calcium 8.4
Total Bilirubin 1.5 H
AST 21
ALT 30
Alkaline Phosphatase 71
Vital Signs:
Vital Signs
Temp Pulse Resp BP Pulse Ox
98.2 F 67 16 162/104 98
05/28/25 07:15 05/28/25 07:15 05/28/25 07:15 05/28/25 07:15 05/28/25 07:15
I&O
05/27/25 05/28/25 05/29/25
06:59 06:59 06:59
Intake Total 480 / 480 1440 / 1440
Output Total 650 / 650 1650 / 1650
Balance -170 / -170 -210 / -210
Review of Systems
-
History Source: Patient
Constitutional: Reports Other (difficulty sleeping)
Respiratory: Reports Cough
Cardiac: Reports Palpitations
Abdomen/GI: Reports No Symptoms
Breast: Reports No Symptoms
Genitourinary: Reports No Symptoms
Musculoskeletal: Reports Edema (Bilateral lower extremity edema)
Skin: Reports No Symptoms
Neuro: Reports Weakness (Left upper arm weakness, facial drooping on L side)
Endocrine: Reports No Symptoms
Hematologic / Lymphatic: Reports No Symptoms
Physical Exam
-
General: Well Developed, Well Nourished, No Apparent Distress and Conversant
HEENT: Normocephalic, Atraumatic, Moist Mucous Membranes and Anicteric
Respiratory: Clear to Auscultation and Non Labored Respirations; Negative Wheezes, Rales, Rhonchi or Crackles
Cardiac: S1/S2 and Irregular Rhythm; Negative Murmur, Rub or JVD
GI: Soft, Nontender, Nondistended and Normal Bowel Sounds
Rectal: Deferred by Provider
Genito-urinary: Deferred by me
Musculoskeletal: No Clubbing, No Cyanosis, Edema, Right Lower Extrem (1+) and Edema, Left Lower Extrem (1+)
Skin: Warm, Dry and Normal Turgor; Negative Rash, Ulcers, Lesions, Jaundice or Decubitus Ulcers
Neuro: Awake, Alert, Oriented, AO x 3, Facial Droop and Other (Left Upper Extremity weakness with wrist drop. Left sided facial droop.)
Psych: Intact Judgement/Insight and Anxious
[2025-05-28 07:33] LABS: Glucose - Point of Care 88 mg/dl (70-99)
[2025-05-28 07:54] LABS: Hematocrit 45.1 % (39.0-52.0); Hemoglobin 14.7 g/dL (13.0-18.0); Mean Corp Hgb Conc. 32.6 g/dL (33.0-37.0); Mean Corpuscular Volume 89.3 fL (80.0-94.0); Platelet Count 217 10^3/uL (130-400); Red Cell Dist. Width 13.8 % (11.5-14.5)
--- NOTE | 2025-05-28 08:06 | CON.NEURO4 ---
Addendum entered and electronically signed by Fred Jha MD 05/28/25 11:18:
Studies reviewed.
I have personally examined the patient. I reviewed and agree with the PAPER GLUING OPERATOR's Note.
My addenda:
Awake, alert, interactive. No acute distress.
Speech intact.
Follows 2-step requests w/o difficulty. No tremor.
Extra-ocular movements grossly intact.
Reduced left facial movements compared with the contralateral side. Hearing intact to normal conversational volume.
Immediate downward drift left upper extremity and reduced spontaneous movement left upper extremity, drift in left lower extremity
Neck: full ROM.
Chest: no dyspnea
Heart: no JVD
Ext: (-) Clubbing, (-) Cyanosis, (-) Edema
IMPRESSIONS/RECOMMENDATIONS:
Abrupt onset of left-sided hemibody weakness most likely secondary to acute ischemic stroke which in turn is most likely embolic based on the patient's known atrial appendage thrombus
Provided the patient with usual dabigatran this a.m.
Patient not a candidate for tenecteplase due to typical anticoagulation
CT angiogram was of low technical quality based on the patient's low ejection fraction. After discussion with [facility] physician who also had evaluation by the vascular neurology fellow, decision was made by them that the
patient was not a candidate for thrombectomy.
I believe the patient will benefit from a four-vessel cerebral arteriogram as the quality of the CTA might not be adequate to demonstrate a blockage
Would suggest transfer to thrombectomy capable facility urgently
D/W patient / nursing
All questions answered.
Total Critical Care Time=�40 minutes.
The neurological system is affected and the action required by me to prevent further deterioration or potential was control over the item listed first in the Impressions and Recommendations section of this note.
I was present and personally examined the patient.� I discussed patient care with other professional health care providers.
Will continue to follow patient.
Original Note:
Documented by User: Gayle Gaxiola NP 05/28/25 10:52
Consultation - Neurology 4
-
CONSULTING PHYSICIAN: Fred Jha MD
REFERRING PHYSICIAN: Hospitalists/Dr. Castro
DICTATED BY: MADISON Lowery
DATE/TIME OF REQUEST: 05/28/25
DATE/TIME OF CONSULTATION: 05/28/25
Reason for Consultation: Stroke Alert
History of Present Illness:
This is a 55-year-old right-handed male who has presented to the hospital on 05/26/25 with report of shortness of breath and lower extremity edema. Patient has persistent Afib and presented to [facility] on 05/22/25 for cardioversion; however, this was
unable to be completed due to a persistent left atrial thrombus on RACIEL, and he was discharged home. Due to dyspnea and edema he presented again to [facility] on 05/26/25 for evaluation. He was previously on apixaban and reports compliance, therefore this
was switched to dabigatran the evening of 05/26/25. Patient was at his baseline this morning at 0710 when he noted that his left arm was suddenly weak. CT head was obtained and is negative for any acute abnormalities. CTA head/neck was obtained and
was noted to have contrast pooling in his aorta questioning the quality of the study, final reading was negative for any large vessel occlusion. NIHSS is 6 for partial left facial drooping, left arm some effort against gravity, left leg drift, and
mild dysarthria. He is not a candidate for TNK due to dabigatran usage in the past 12 hours. He is not a candidate for IAT due to no LVO on CTA head/neck imaging. [facility] contacted for transfer due to question of the quality of our CTA
head/neck imaging. He was not accepted by Neurosurgery but was accepted by Cardiology; transfer arranged.
Past Medical History: Afib, HTN, MCKINLEY, cardiomyopathy, TADEO thrombus, HFrEF (20-25%)
Surgical History: Cardiac ablation, cardioversion
Family History: Reviewed and noncontributory.
Social History: Denies tobacco, alcohol, and illicit drug use.
Allergies: No known allergies.
Home Medications: See below.
Review of Symptoms:
Patient denies any fever, headache, chest pain, shortness of breath, GI or symptoms.
�Per the HPI.�All systems are reviewed negative except above.
Physical Exam:
The patient is afebrile, abdomen is nondistended, breathing is unlabored, skin is warm and dry, no edema.
NIH Stroke Scale:
I performed the NIH stroke scale on the patient on 05/28/25 at 0800. The patient scored 6 points on the NIH stroke scale assessment, which were assigned as follows: See below.
Neurologic Examination:
The patient is awake, alert and oriented x 3. He is able to follow commands and answer questions appropriately. There is no aphasia. There is mild dysarthria. On cranial nerve assessment, pupils are 3 mm bilateral, round and reactive to light and
accommodation. Visual mcdonald are full. Extraocular movements are intact. There is left facial drooping noticeable at rest. Hearing is intact bilaterally to normal conversation volume. Tongue palate and uvula are midline. Motor strengths are 5/5
right upper, 3/5 proximal left upper/absent distal left upper, 5/5 right lower, and 4/5 left lower extremities on medical research [place] scale. There is drift in the left arm and leg. No involuntary movement noted. Deep tendon reflexes are 2+
bilateral upper and lower extremities and Babinski is absent bilaterally. Sensations of touch are intact and bilaterally symmetrical. There was no extinction noted on double simultaneous stimulation. Coordination is intact by finger to nose in the
right upper extremity, VALERIE left upper extremity due to weakness.
Lab Results: See below.
Neuro Imaging:
1. CT Head 05/28/25: No acute intracranial abnormality noted. ASPECTS Score: 10.
2. CTA head/neck 05/28/25: No significant vascular occlusion, aneurysm or dissection.
Differentials for the patient's presentation include:
1. Acute onset left-sided weakness and dysarthria; etiology is likely a cardioembolic stroke in the setting of known TADEO thrombus.
Patient has the following risk factors for their symptoms: TADEO thrombus
IV Tenecteplase/IAT candidacy: He is not a candidate for TNK due to dabigatran usage in the past 12 hours. He is not a candidate for IAT due to no LVO on CTA head/neck imaging.
Recommendations:
-Continue dabigatran.
-Urgent transfer to [facility].
Discussed patient care with: Dr. Jha, Dr. Castro, the patient
Vital Signs and Labs
-
Vital Signs and Labs:
Vital Signs
Temp Pulse Resp BP Pulse Ox
98.2 F 67 16 162/104 98
05/28/25 07:15 05/28/25 07:15 05/28/25 07:15 05/28/25 07:15 05/28/25 07:15
Lab Results
05/28/25 07:11
05/28/25 07:11
Sodium 138 mmol/L (135-145) 05/28/25 07:11
Potassium 3.9 mmol/L (3.5-5.1) 05/28/25 07:11
BUN 39 mg/dl (9-20) H 05/28/25 07:11
Glucose 93 mg/dl (70-99) 05/28/25 07:11
Calcium 8.4 mg/dl (8.4-10.2) 05/28/25 07:11
Ukd-Y-Erqqcwbmwlt Pept 59475 pg/ml 05/26/25 10:29
LDL Cholesterol, Calc 101 mg/dl 05/27/25 08:20
Medications
-
Active Medications
Generic Name Dose Route Start Last Admin
Trade Name Freq PRN Reason Stop Dose Admin
Acetaminophen 500 mg 05/26/25 17:20 05/26/25 19:42
Acetaminophen 500 Mg Tablet PO 06/23/25 17:19 500 mg
Q4HPRN PRN Administration
R shoulder pain
Dabigatran 150 mg 05/26/25 20:00 05/28/25 08:17
Dabigatran Etexilate (Pradaxa) 150 Mg Capsule PO 06/23/25 19:59 150 mg
BID MANUEL Administration
Dapagliflozin 10 mg 05/27/25 08:00 05/27/25 08:55
Dapagliflozin (Farxiga) 10 Mg Tablet PO 06/24/25 07:59 10 mg
On Hold: 05/28/25 09:07 DAILY MANUEL Administration
Digoxin 250 mcg 05/27/25 12:00 05/27/25 12:02
Digoxin 250 Mcg Tablet PO 06/24/25 11:59 250 mcg
NOON MANUEL Administration
Furosemide 80 mg 05/26/25 16:00 05/27/25 15:53
Furosemide 100 Mg (10 Mg/Ml) 10 Ml Vial IV 06/23/25 15:59 80 mg
On Hold: 05/28/25 09:07 BID AT 0800,1600 MANUEL Administration
Ondansetron HCl 4 mg 05/26/25 17:05 05/27/25 14:49
Ondansetron 4 Mg Tablet PO 06/23/25 17:04 4 mg
Q8HPRN PRN Administration
nausea
Propranolol HCl 60 mg 05/27/25 11:00 05/27/25 12:03
Propranolol Extended Release 60 Mg Capsule (24hr) PO 06/24/25 10:59 60 mg
On Hold: 05/28/25 09:06 DAILY MANUEL Administration
Sacubitril/Valsartan 1 tab 05/26/25 20:00 05/27/25 20:03
Sacubitril 97 Mg/Valsartan 103 Mg (Entresto) Tab PO 06/23/25 19:59 1 tab
On Hold: 05/28/25 09:06 BID MANUEL Administration
Sodium Chloride 0 flush 05/26/25 16:00
Sodium Chloride 0.9% (Flush) Syringe IV 06/23/25 15:59
PER PROTOCOL MANUEL
Spironolactone 50 mg 05/27/25 08:00 05/27/25 08:55
Spironolactone 50 Mg Tablet PO 06/24/25 07:59 50 mg
On Hold: 05/28/25 09:07 DAILY MANUEL Administration
Home Medications
�Medication �Instructions �Recorded
apixaban 5 mg tablet (Eliquis) 5 mg PO BID Blood Clot 05/03/25
Prevention/Tx
sacubitril 97 mg-valsartan 103 mg 1 tab PO BID Heart Failure 05/09/25
tablet (Entresto)
spironolactone 50 mg tablet 50 mg PO DAILY Heart Failure 05/09/25
empagliflozin 10 mg tablet 10 mg PO DAILY Heart 05/11/25
(Jardiance) disease/condition #30 tabs
furosemide 40 mg tablet (Lasix) 40 mg PO DAILY Heart 05/11/25
disease/condition #0 tabs
digoxin 250 mcg (0.25 mg) tablet 250 mcg PO DAILY #30 tabs 05/15/25
NIH Stroke Score
Subsequent NIH Scale
Date of Subsequent NIH Scale: 05/28/25
Time of Subsequent NIH Scale: 08:00
NIH Stroke Score
Level of Consciousness: 0 - Alert
LOC Questions: 0-Answers both correctly
LOC Commands: 0-Performs both correctly
Best Horizontal Gaze: 0-Normal
Visual Mcdonald: 0=Normal, no visual loss
Facial Palsy: 2=Partial paralysis
Motor - Right Arm: 0=No drift 10 seconds
Motor - Left Arm: 2=Partial vs. gravity
Motor - Right Le-No drift 5 seconds
Motor - Left Le-Drift < 5 seconds
Limb Ataxia: UN-Amputation/jointfusion
Sensation: 0-Normal
Best Language: 0-No aphasia
Dysarthria: 1-Mild slurring
Extinction and Inattention: 0-No abnormality
NIH Total Score:: 6
Modified Yoan (mRS) Score
Modified [place] Scale (mRS): Moderately severe disability. Unable to attend to bodily needs/walk.
Score: 4
Alteplase Contraindication
Inclusion and Exclusion criteria reviewed: Yes
Reasons for NON-Tx with Thrombolytics ABSOLUTE Exclusions: Patient taking oral anticoagulant and last dose within 48 hours
IAT Contraindications: Imaging doesn't show large vessel occlusion as cause of stroke

Documented by User: Fred Jha MD 05/28/25 11:05
NIH Stroke Score
NIH Stroke Score
NIH Total Score:: 6
Modified [place] (mRS) Score
Score: 4
--- NOTE | 2025-05-28 08:10 | W.PN.CD ---
Addendum entered and electronically signed by Jose Angel Whitfield MD 05/28/25 10:49:
- Spent additional time arranging patient transfer to [facility]. (coordinated plan of care with CHF Specialist and Neurologist at [facility]).
- Neurology and hospitalist aware.
- Patient cannot move left arm and is becoming dysarthric.
- Will be transferred urgently to [facility] via helicopter.
- Total critical care time 60 minutes.
Addendum entered and electronically signed by Jose Angel Whitfield MD 05/28/25 08:24:
Mild troponin elevation: Acute nonischemic myocardial injury secondary to CHF.
Original Note:
Today's Communication / Plan
-
STROKE ALERT CALLED THIS AM:
- Patient cannot move his left arm.
- Case discussed with neurology at that time; CT attempted, but unsuccessful due to contrast issues.
- Patient apparently will be transferred to [facility] for management of acute CVA.
- TADEO thrombus could have embolized; may need intracranial thrombectomy.
- Transfer arrangements as per primary team/Neurology.
Impression / Plan
-
I/P: 55M with persistent atrial fibrillation (s/p cardioversion X3, ablation), LLA thrombus (identified 04/21/2025, unresolved 05/22/2025) heart failure with reduced ejection fraction (LVEF 20-25%), multidrug resistant hypertension, MCKINLEY, and BPH
presented to the ER with shortness of breath
Primary masking machine feeder: Dr. Will
EP: Dr. White
STROKE ALERT CALLED THIS AM:
- Patient cannot move his left arm.
- Case discussed with neurology at that time; CT attempted, but unsuccessful due to contrast issues.
- Patient apparently will be transferred to [facility] for management of acute CVA.
- TADEO thrombus could have embolized; may need intracranial thrombectomy.
- Transfer arrangements as per primary team/Neurology.
HFrEF (EF 20-25%), acute on chronic
- With worsening shortness of breath and an elevated proBNP compared to prior admission
- Recent discharge weight 62.6 kg, goal weight
- Diuresis with intravenous furosemide, this requires intensive monitoring
- GDMT as tolerated:
-BRENTON/ARB/ARNI: Sacubitril/valsartan 97-103 mg twice daily
-SGLT2 inhibitor: Jardiance 10 mg daily
-Aldosterone agonist: Spironolactone 50 mg daily
-Beta ellen: Did not tolerate metoprolol succinate or atenolol, trialling propranolol.
-Isosorbide/Hydralazine:�Can consider
-ICD: Not currently indicated
- Ultimately needs better blood pressure control; but no changes at this time due to acute CVA--patient is being transferred.
Persistent atrial fibrillation
- Challenging to rate control given drug intolerances (metoprolol succinate, metoprolol tartrate, atenolol), improved with propranolol
- continue dig
- prasanth rates when sleeping, ok to continue bb (longest pause 3.5 seconds)
- Status post ablation 07/2022, he is interested in repeat ablation and is not interested in long-term antiarrhythmic therapy
- Persistent thrombus on apixaban, change management expert
- [id number]: score 2 (Heart failure, HTN)
- Plan was for RACIEL guided cardioversion after 06/23/2025
TADEO thrombus
- Large thrombus identified 04/21/2025, repeat RACIEL 05/22/2025 without resolution
- Stop apixaban, start dabigatran 150 mg twice daily
- Plan was for repeat RACIEL after 4 weeks of dabigatran
Hypertension, multidrug resistant
- Trend with diuresis and changes to medical therapy
Prediabetes
MCKINLEY
Physical Exam
Vital Signs/Labs
Vital Signs
Temp Pulse Resp BP Pulse Ox
98.1 F 64 18 161/108 97
05/28/25 03:24 05/28/25 03:24 05/28/25 03:24 05/28/25 03:24 05/28/25 03:24
05/27/25 05/28/25 05/29/25
06:59 06:59 06:59
Actual Weight 64.212 kg 63.588 kg
05/28/25 07:11
Magnesium 2.4 mg/dl (1.6-2.3) H 05/27/25 08:20
Triglycerides 87 mg/dl (10-149) 05/27/25 08:20
LDL Cholesterol, Calc 101 mg/dl 05/27/25 08:20
VLDL Cholesterol, Calc 17 mg/dl (0-30) 05/27/25 08:20
HDL Cholesterol 32 mg/dl 05/27/25 08:20
Digoxin 1.0 ng/ml (0.8-2.0) 05/26/25 10:29
05/26/25
10:29
Jem-Y-Nktlugqqmub Pept [id number]
Physical Exam
Constitutional: No acute distress
EENT: Anicteric
Cardiovascular: Pedal edema is absent, Rhythm/rate is irregular, Systolic murmur present (08/25) and S1S2 is normal
Respiratory: Respiratory effort normal and Rhonchi Present (Scant bibasilar)
GI: Soft
Neuro/Psych: Alert and AO x 3
Other: Skin (Warm, dry, intact)
Neurologic exam: Patient cannot move left arm.
Data Reviewed
-
Date of Service: May 28, 2025
EKG: Tracing Personally Visualized and interpreted (Telemetry: A-fib (pauses of 2.0-3.5 seconds))
Echo: Report Reviewed by me (EF 20-25%)
Labs: Labs Reviewed by me
[2025-05-28] MEDS: PRADAXA 150 MG PO (08:17)
[2025-05-28 08:49] LABS: ALT (SGPT) 30 U/L (0-50); AST (SGOT) 21 U/L (17-59); Albumin 3.2 g/dl (3.5-5.0); Alkaline Phosphatase 71 U/L (38-126); Blood Urea Nitrogen 39 mg/dl (9-20); Calcium 8.4 mg/dl (8.4-10.2); Carbon Dioxide 31 mmol/L (22-30); Chloride 103 mmol/L (98-107); Estimated Creatinine Clearance 56 ml/min; Glucose 93 mg/dl (70-99); Potassium 3.9 mmol/L (3.5-5.1); Sodium 138 mmol/L (135-145); Total Protein 5.7 g/dl (6.3-8.2); eGFR > 60.00
--- NOTE | 2025-05-28 09:06 | W.PN.UPDATE ---
Update Note
Progress Note Update
Seen and examined the patient earlier. Late documentation as we were involved with taking care of the patient as well as taking care of the transfer.
Agree with assessment and plan put forth by the resident-plan coordinated together
55-year-old male who was admitted with CHF history of A-fib and LA thrombus was placed on Pradaxa this admission from [facility]. At 7:11 this morning patient had symptoms of left-sided weakness. Stroke alert was called a CTA and a CT head was
obtained. CT head without any acute changes CTA failed to demonstrate any significant vascular occlusion aneurysm or dissection.
On examination patient was awake and alert
Mild facial droop noted on the left side, 3 out of 5 strength with pronator drift on the left arm 4 out of 5 strength of the left leg, mild dysarthria. NIH was 6-8 fluctuating
Cardiovascular system S1-S2 irregular
Chest clear to auscultation
Abdomen soft and nontender
Mild pedal edema noted
# Acute stroke
CTA was not the best study because of the patient's poor EF
Pradaxa was continued however be held antihypertensives, Lasix and Aldactone this morning to allow for cerebral perfusion and permissive hypertension
He was not considered as a candidate for TNK given he was found anticoagulants.
Neurology evaluation appreciated
We made a phone call to [facility] to transfer the patient to see if thrombectomy would be an option especially since the CTA was not best study. They evaluated the CT and did not feel there was a need.
Because of the patient's cardiomyopathy, poor ejection fraction, LA thrombus cardiology also made a phone call, to [facility] and patient was accepted and was airlifted.
He was accepted to .
# Acute on chronic heart failure with reduced ejection fraction
proBNP 11,000
Nonischemic cardiomyopathy with ejection fraction 30 to 35%
Diuresis
Follow intake output charting, daily weights
Patient admits to noncompliance with fluid intake-we discussed about compliance with fluid intake
Hold Jardiance, Entresto, Aldactone, Propranolol
Hold diuresis today
# Persistent atrial fibrillation
History of multiple cardioversions and history of ablation 2021
Patient was found to have LV thrombus in September 2024 when he went into A-fib and was not able to be cardioverted. He had a repeat echo on 10/21/2024 no left atrial appendage thrombus was seen on that study
Patient had to interrupt anticoagulation for a trauma in March, echo on 04/21/2025 showed left atrial appendage thrombus. This was repeated on 05/22/2025 which showed persistent thrombus in the left atrial appendage.
Patient is in A-fib and could not be cardioverted secondary to this. Patient states that he feels symptoms of A-fib when he was in A-fib. Patient also cannot tolerate beta-blockers
Likely not a failure of Eliquis as thrombus may take time to resolve
Anticoagulation changed from Eliquis to Pradaxa per cardiology
Eventual repeat RACIEL and cardioversion when thrombus goes away
Continue digoxin,
Patient states that he cannot tolerate metoprolol, carvedilol or atenolol
# Pause on tele- Hold BB
# Sleep apnea
# History of nephrolithiasis
# DVT prophylaxis-Pradaxa
# Full code
Time spent over 75 min
D/W RN
D/W Neuro
D/W Cards
D/W [place]
[2025-05-28 09:30] VITALS: BP 174/88
--- NOTE | 2025-05-28 10:19 | PTCARENOTE ---
Stroke alert and Rapid response called this am, patient reports at 7:30am he was unable to grasp his glasses. Hand grasp were tested , L was noted as weak. L arm drift, and decreased sensation to L noted. NIH of 3. Patient taken to CT where
neurologist was met. Patient did pass swallow test, however at later time pradaxa was given and patient did cough afterwards. Patient was transferred to [facility] for further management.
[2025-05-28 10:22] VITALS: BP 174/88
--- NOTE | 2025-05-28 10:42 | CM ---
Pt transferred via [facility] to [facility], active CVA
--- NOTE | 2025-05-28 11:37 | W.DCSUMMARY ---
Discharge Summary
Discharge Data
Date of Admission: 05/26/25
Date of Discharge: 05/28/25
-
Pending Results: No
Hospital Course
Discharging Physician : Dr Castro
Disposition : Acute Care Hospital
Primary care physician: Reyes Shabazz
Principal Discharge diagnosis : Symptomatic A-fib with RVR, acute on chronic HFrEF
Chronic Discharge diagnosis : HFrEF (30-35%), MCKINLEY, multidrug-resistant hypertension
Hospital Course :
Patient is a 54-year-old male with a past medical history of nonischemic cardiomyopathy with HFrEF with an ejection fraction of 20 to 25% based on RACIEL conducted on 05/22/2025, symptomatic atrial fibrillation with rapid ventricular response, multidrug
resistant hypertension, and obstructive sleep apnea who presented with shortness of breath and increasing lower extremity swelling. Patient was very anxious that his atrial fibrillation has not resolved and multiple times during the encounter
mention worries of sequela and lower quality of life secondary to heart failure. He complained of poor sleep and contributes his reduced sleep to his anxiety over the trajectory of his heart failure. The patient has been admitted to the hospital
twice recently for atrial fibrillation with rapid ventricular response with the last discharge being on 05/15/2025. Patient got his last ablation in July 2022 and had a cardioversion in October 2024 after the resolution of a thrombus. Patient had
a new atrial thrombus identified on 04/21/2025 and had planned for a repeat cardioversion on 05/19. Unfortunately when the patient presented for repeat cardioversion a thrombus was found in the left atrium and the cardioversion was deferred. He has
been symptomatic since his planned cardioversion and presents to the emergency department with ongoing shortness of breath with lower extremity swelling bilaterally. Patient states that he has been on Eliquis consistently but was off of Eliquis in
March for about 7 to 5 days because of rib fracture while surfing. In the emergency department the patient was found to be hypertensive with systolic blood pressures fluctuating between 178 to the upper 150s. Patient had a proBNP of 11,000. TSH
was within normal limits. Digoxin level at 1.0 which was therapeutic. Total bilirubin elevated at 1.6. Patient was admitted to [facility] for acute on chronic HFrEF with an ejection fraction of 20 to 25%.
Patient was initiated on IV Lasix 80 mg twice daily and was given propranolol extended release as the patient was intolerant to other beta-blockers or rate control medications. Patient tolerated the propranolol well but continued to remain
hypertensive. Unfortunately on 05/28/2025 at approximately 0711 hours the patient had a stroke alert called. Patient was suffering from left-sided upper limb, and left lower limb (4/5 weakness) hemibody weakness suspected to be secondary to acute
ischemic stroke which may have been caused by an embolized atrial appendage thrombus due to the patient's ongoing atrial fibrillation status. NIH scale was 6-8 with fluctuations. Patient was not a candidate for tenecteplase due to dabigatran given
in the morning. CT angiogram was of low technical quality based on the patient's low ejection fraction. Following CTA the patient started to have left-sided facial droop and was becoming dysarthric. Patient was transferred to [facility]
[place] in hopes of receiving a four-vessel cerebral arteriogram as the quality of the CTA conducted at this hospital might not be adequate to demonstrate a blockage. Patient was transferred to [facility], a thrombectomy
capable facility urgently. Patient understood the risks and benefits of emergency hospital transfer and consented to transfer to [facility] for further treatment via helicopter.
Patient promptly transferred via helicopter to [facility] for further management under the care of Dr. Rubin
Important imaging findings :
-Chest x-ray conducted on 05/26/2025:
Findings are unchanged from the prior study. There is no acute pneumonia.
Findings could be related to chronic congestive heart failure.
-Head CT conducted on 05/28/2025:
No acute intracranial abnormality noted.
ASPECTS Score: 10
-Head and neck CTA conducted on 05/28/2025:
No significant vascular occlusion, aneurysm or dissection.
Procedure findings : N/A
Discharge Plan
-
Patient Disposition: Acute Care Hospital
Discharge Orders:
Discharge Patient (As Directed); Ordered 05/28/25
Ordered By: Brice Castro
Discharge Date and Time
Discharge Date/Time: 05/28/25 09:25
Print Language: FAROESE
== END 2025-05-28 09:25 | disposition short-term general hospital (02) | DRG 291 ==
LOC: 4 EAST ACU 14:32
PROVIDERS: Nurse Practitioner; ADMITTING PHYSICIAN Hospitalist; EMERGENCY PHYSICIAN Student in an Organized Health Care Education/Training Program; FAMILY PHYSICIAN Internal Medicine
DX: I11.0 Hypertensive heart disease with heart failure (principal); I50.23 Acute on chronic systolic (congestive) heart failure; I63.49 Cerebral infarction due to embolism of other cerebral artery; I48.19 Other persistent atrial fibrillation; I51.3 Intracardiac thrombosis, not elsewhere classified; I42.8 Other cardiomyopathies; I1A.0 Resistant hypertension; Z79.899 Other long term (current) drug therapy; R73.03 Prediabetes; G47.33 Obstructive sleep apnea (adult) (pediatric); Z91.119 Patient's noncompliance with dietary regimen due to unspecified reason; Z87.442 Personal history of urinary calculi; Z79.84 Long term (current) use of oral hypoglycemic drugs; Z79.01 Long term (current) use of anticoagulants
CPT/HCPCS: 70450; 70496; 70498; 71046; 80053; 80061; 80162; 82248; 82962; 83735; 83880; 84443; 85025; 85027; 93005; 96374; 97162; 97166; 99285; Q9967